=== PATIENT | male | born 1950 | race Caucasian/White ===

== ENCOUNTER → 2017-06-25 09:07 | Outpatient (CLI) | payer OTHER, SELFPAY ==
--- NOTE | 2017-06-25 09:23 | RAD_ITS ---
STUDY: X-RAY CHEST REASON FOR EXAM: Male, 67 years old. Cough TECHNIQUE: Frontal and lateral views of the chest. COMPARISON: 01/10/2010. FINDINGS: The lungs are clear and expanded. There is no demonstrated pleural abnormality. Normal size heart. Normal mediastinum and ketty. Normal visualized pulmonary arteries. Normal visualized aortic arch and descending thoracic aorta. Normal visualized thoracic spine. Normal visualized ribs, clavicles, and shoulders. There is no demonstrated abnormality of the visualized soft tissue structures of the upper abdomen. RAD/Chest PA and Lateral IMPRESSION: No acute cardiopulmonary disease. Electronically Signed: Mark Carty DO at 8:56 EST , Service support ,
[2017-06-25 12:28] LABS: Absolute Lymphocyte Count 1.92 X10^3/ul (0.83-4.51); Absolute Neutrophil Count 5.2 X10^3/uL (2.0-7.7); Basophil# 0.02 X10^3/uL; Basophil% 0.3 % (0-1); Eosinophil# 0.06 X10^3/uL; Eosinophils% 0.8 % (0-5); Hematocrit 43.4 % (40-54); Hemoglobin 14.9 g/dl (13.0-16.5); Lymphocyte # 1.92 X10^3/ul (4.0); Lymphocyte % 24.2 % (19-41); Mean Corp Hgb Conc 34.3 g/gl (32-36); Mean Corpuscular Hgb 32.8 pg (27.0-32.0); Mean Corpuscular Volume 95.6 fL (80-94); Mean Platelet Vol. 10.4 fl (6.2-12.0); Monocyte# 0.63 X10^3/uL; Neutrophil # 5.23 X10^3/uL (2.7-7.7); Neutrophil % 65.9 % (47-70); Platelet Count 300 K/mm3 (150-450); RBC Distribution Width CV 12.6 % (11.6-14.6); RBC Distribution Width SD 43.4 fl (35.1-43.9); Red Blood Count 4.54 M/mm3 (4.6-6.2); White Blood Count 7.9 K/mm3 (4.4-11.0)
[2017-06-25 12:43] LABS: POSITIVE COUNT NO; POSITIVE DIFFERENTIAL NO; POSITIVE MORPHOLOGY NO
[2017-06-25 13:07] LABS: ALB/GLOB Ratio 0.7 RATIO (0.9-2.4); AST(SGOT) 18 U/L (15-37); Alanine Aminotransfer ALT/SGPT 28 U/L (16-61); Albumin, Serum 3.5 g/dL (3.2-5.0); Alkaline Phosphatase 114 U/L (45-117); Anion Gap 14 (5-15); BUN 18 mg/dL (7-18); BUN/Creat Ratio 17.6 RATIO (10-20); Chloride 99 mmol/L (98-107); Cholesterol 129 mg/dL (200); Creatinine, Serum 1.02 mg/dL (0.70-1.30); EST Glomerular Filtration Rate 78 mL/min (>60); Est Glom Filt Rate - Afr Amer 94 mL/min (>60); Globulin 5.1 g/dL (2.2-4.2); Glucose 281 mg/dL (74-106); High Density Lipoprotein 27 mg/dL; PSA,Total- Diagnostic 0.29 ng/mL (0.0-4.0); Potassium 3.9 mmol/L (3.5-5.1); Protein, Total 8.6 g/dL (6.4-8.2); Sodium Level 133 mmol/L (136-145); Thyroid Stim Hormone (TSH) 3.58 uIU/mL (0.358-3.74); Triglycerides 185 mg/dL; Very Low Density Lipoprotein 37 mg/dL (5-40)
== END ==
PROVIDERS: Family Provider Family Medicine; PCP Family Medicine; Visit Provider Family Medicine
DX: E11.9 Type 2 diabetes mellitus without complications (principal); R35.0 Frequency of micturition; R05 Cough
CPT/HCPCS: 36415; 71046; 80053; 80061; 84153; 84443; 85025

== ENCOUNTER → 2018-01-26 08:07 | Outpatient (CLI) | payer MEDICARE, OTHER, SELFPAY ==
[2018-01-26 10:38] LABS: Anion Gap 9 (5-15); BUN 16 mg/dL (7-18); BUN/Creat Ratio 16.1 RATIO (10-20); Calcium,Total 8.8 mg/dL (8.5-10.1); Chloride 102 mmol/L (98-107); Cholesterol 158 mg/dL (200); Creatinine, Serum 0.99 mg/dL (0.70-1.30); EST Glomerular Filtration Rate 80 mL/min (>60); Est Glom Filt Rate - Afr Amer 97 mL/min (>60); Glucose 295 mg/dL (74-106); High Density Lipoprotein 37 mg/dL; Potassium 4.1 mmol/L (3.5-5.1); Sodium Level 135 mmol/L (136-145); Triglycerides 252 mg/dL; Uric Acid 5.1 mg/dL (3.5-7.2); Very Low Density Lipoprotein 50 mg/dL (5-40)
== END ==
PROVIDERS: Family Provider Family Medicine; PCP Family Medicine; Visit Provider Family Medicine
DX: E11.9 Type 2 diabetes mellitus without complications (principal); I10 Essential (primary) hypertension; M10.9 Gout, unspecified
CPT/HCPCS: 36415; 80048; 80061; 84550

== ENCOUNTER → 2018-01-27 09:56 | Outpatient (CLI) | payer MEDICARE, OTHER, SELFPAY ==
[2018-01-27 11:09] LABS: PSA,Total - Annual Screen 0.43 ng/mL (0.00-4.00)
== END ==
PROVIDERS: Family Provider Family Medicine; PCP Family Medicine; Referring Provider Urology; Visit Provider Urology
DX: Z12.5 Encounter for screening for malignant neoplasm of prostate (principal)
CPT/HCPCS: 36415; 84153; G0103

== ENCOUNTER → 2018-03-29 08:10 | Outpatient (CLI) | payer MEDICARE, OTHER, SELFPAY ==
[2018-03-29 11:11] LABS: Anion Gap 8 (5-15); BUN 22 mg/dL (7-18); BUN/Creat Ratio 22.5 RATIO (10-20); Calcium,Total 9.2 mg/dL (8.5-10.1); Chloride 103 mmol/L (98-107); Cholesterol 132 mg/dL (200); Creatinine, Serum 0.98 mg/dL (0.70-1.30); EST Glomerular Filtration Rate 82 mL/min (>60); Est Glom Filt Rate - Afr Amer 99 mL/min (>60); Glucose 175 mg/dL (74-106); High Density Lipoprotein 42 mg/dL; Potassium 4.1 mmol/L (3.5-5.1); Sodium Level 136 mmol/L (136-145); Triglycerides 171 mg/dL; Very Low Density Lipoprotein 34 mg/dL (5-40)
--- OUTSIDE RECORDS SUMMARY | 2018-05-10 20:39 | XMS RPT_ITS ---
:1950 Author Organization OHIP Care Team Providers Name Role Phone Primay Care Physicia, No Primary Care Unavailable Emmanuel Chavis Attending Unavailable Mina Haynes Attending Unavailable Mina Haynes Referring Unavailable Mina Haynes Primary Care Unavailable Mina Haynes Attending Unavailable Mina Haynes Primary Care Unavailable Fitz Marie Attending Unavailable Fitz Marie Referring Unavailable Mina Haynes Primary Care Unavailable Mina Haynes Attending Unavailable Mina Haynes Primary Care Unavailable PROBLEMS PROBLEMS DATE TYPE CONDITION / CODE ATTENDING STATUS SOURCE 01/27/2018 Unknown Z12.5 - Encounter Fitz Marie Active [place] for screening for [facility] malignant neoplasm Hospital of prostate / Repository Z12.5(ICD-10) 04/12/2018 Unknown E11.9 - Type 2 Ivy, Active [place] diabetes mellitus [facility] without Hospital complications / Repository E11.9(ICD-10) 06/28/2017 Unknown R05 - Cough / Shundry, Emmanuel Active [place] R05(ICD-10) [facility] Repository PROCEDURES PROCEDURES No Procedure Records FoundRESULTS RESULTS BASIC METABOLIC Collected: 03/29/2018 Status: F Source: [place] PROFILE (BMP) 8:11 AM [facility] REPOSITORY TYPE CODE TESTS RESULT OUT OF RANGE REFERENCE UNITS LAB L501.0100 74-106 mg/dL High GLU 175 Result Comment: Fasting Glucose result greater than or equal to 126 mg/dL suggests DIABETES MELLITUS per A.D.A. criteria. Please note revised GLUCOSE reference range effective 2017. LAB L501.1000 7-18 mg/dL High BUN 22 LAB L501.1100 0.70-1.30 mg/dL Normal CREAT,SERUM 0.98 Result Comment: The validity of the calculated GFR AND GFRAA in patients over 70 years has not been determined. Clinical correlation is essential. LAB L501.1110 >60 mL/min Normal EST GFR 82 Result Comment: Non- GFR Calc LAB L501.1115 >60 mL/min Normal EST GFR - AA 99 Result Comment: GFR Calc LAB L501.1300 10-20 RATIO High BUN/CRE 22.5 LAB L501.2200 8.5-10.1 mg/dL CA Normal 9.2 LAB L501.5300 136-145 mmol/L NA Normal 136 LAB L501.5600 3.5-5.1 mmol/L K Normal 4.1 LAB L501.5900 98-107 mmol/L CL Normal 103 LAB L501.6100 21.0-32.0 mmol/L Normal CO2 25.0 LAB L501.6200 5-15 Normal GAP 8 Performed By: #### L500.2500, L500.4100 #### [facility] [address] [place], [address] LIPID PROFILE Collected: 03/29/2018 Status: F Source: [place] 8:11 AM [facility] REPOSITORY TYPE CODE TESTS RESULT OUT OF RANGE REFERENCE UNITS LAB L501.4900 200 mg/dL Normal CHOL 132 Result Comment: <200 mg/dL Desirable 200-240 mg/dL Borderline >240 mg/dL High Risk LAB L501.5000 mg/dL Normal TRIG 171 Result Comment: The drugs N-Acetylcysteine and Metamizole may falsely depress this assay. Serum Triglycerides Reference Interval Normal <150 mg/dL Borderline high 150 - 199 mg/dL High 200 - 499 mg/dL Very High > or = 500 mg/dL LAB L501.6400 mg/dL Normal HDL 42 Result Comment: The drugs N-Acetylcysteine and Metamizole may falsely depress this assay. Reference Range HDL <40 mg/dL Low HDL Cholesterol HDL >or= 60 mg/dL High HDL Cholesterol LAB L501.6500 0-130 mg/dL Normal LDL 56 LAB L501.6600 5-40 mg/dL Normal VLDL 34 Performed By: #### L500.2500, L500.4100 #### [facility] [address] [place], [address] PSA,TOTAL - ANNUAL Collected: 01/27/2018 Status: F Source: [place]AM[place] SCREEN 10:02 AM [facility] REPOSITORY TYPE CODE TESTS RESULT OUT OF RANGE REFERENCE UNITS LAB L501.9910 0.00-4.00 ng/mL Normal PSA,TOT 0.43 SCREEN Result Comment: This test was performed using the TPSA assay method for the WiMi5 chemistry system. Values obtained with different assay methods cannot be used interchangably. When changing PSA assays in the course of monitoring a patient, additional sequential testing should be carried out to confirm baseline values. Performed By: #### L501.9910 #### [facility] [address] [place], [address] BASIC METABOLIC Collected: 01/26/2018 Status: F Source: [place]AM[place] PROFILE (BMP) 8:13 AM [facility] REPOSITORY TYPE CODE TESTS RESULT OUT OF RANGE REFERENCE UNITS LAB L501.0100 74-106 mg/dL High GLU 295 Result Comment: Glucose result greater than or equal to 200 mg/dL suggests DIABETES MELLITUS per A.D.A. criteria. Please note revised GLUCOSE reference range effective 2017. LAB L501.1000 7-18 mg/dL Normal BUN 16 LAB L501.1100 0.70-1.30 mg/dL Normal CREAT,SERUM 0.99 Result Comment: The validity of the calculated GFR AND GFRAA in patients over 70 years has not been determined. Clinical correlation is essential. LAB L501.1110 >60 mL/min Normal EST GFR 80 Result Comment: Non- GFR Calc LAB L501.1115 >60 mL/min Normal EST GFR - AA 97 Result Comment: GFR Calc LAB L501.1300 10-20 RATIO Normal BUN/CRE 16.1 LAB L501.2200 8.5-10.1 mg/dL CA Normal 8.8 LAB L501.5300 136-145 mmol/L Low NA 135 LAB L501.5600 3.5-5.1 mmol/L K Normal 4.1 LAB L501.5900 98-107 mmol/L CL Normal 102 LAB L501.6100 21.0-32.0 mmol/L Normal CO2 24.0 LAB L501.6200 5-15 Normal GAP 9 Performed By: #### L500.2500, L500.4100, L501.1400 #### [facility] [address] [place], [place], [address] LIPID PROFILE Collected: 01/26/2018 Status: F Source: [place] 8:13 AM [facility] REPOSITORY TYPE CODE TESTS RESULT OUT OF RANGE REFERENCE UNITS LAB L501.4900 200 mg/dL Normal CHOL 158 Result Comment: <200 mg/dL Desirable 200-240 mg/dL Borderline >240 mg/dL High Risk LAB L501.5000 mg/dL High TRIG 252 Result Comment: The drugs N-Acetylcysteine and Metamizole may falsely depress this assay. Serum Triglycerides Reference Interval Normal <150 mg/dL Borderline high 150 - 199 mg/dL High 200 - 499 mg/dL Very High > or = 500 mg/dL LAB L501.6400 mg/dL Low HDL 37 Result Comment: The drugs N-Acetylcysteine and Metamizole may falsely depress this assay. Reference Range HDL <40 mg/dL Low HDL Cholesterol HDL >or= 60 mg/dL High HDL Cholesterol LAB L501.6500 0-130 mg/dL Normal LDL 71 LAB L501.6600 5-40 mg/dL High VLDL 50 Performed By: #### L500.2500, L500.4100, L501.1400 #### [facility] [address] [place], [address] URIC ACID Collected: 01/26/2018 Status: F Source: [place] 8:13 AM [facility] REPOSITORY TYPE CODE TESTS RESULT OUT OF RANGE REFERENCE UNITS LAB L501.1400 3.5-7.2 mg/dL Normal URIC 5.1 Result Comment: The drugs N-Acetylcysteine and Metamizole may falsely depress this assay. Performed By: #### L500.2500, L500.4100, L501.1400 #### [facility] [address] [place], [address] CHEST PA AND LATERAL Observed: 06/25/2017 Status: F Source: [place] 9:23 AM [facility] REPOSITORY [facility] Imaging Services [address] [place] [address] Chest PA and Lateral MR#: [id number] Acct: [id number] Name: AARON ELKINS Rep #: [id number] : 1950 M 67 From: Mark Carty PCP: Mina Haynes MD Status: REG CLI Study: Chest PA and Lateral Date of Exam: 06/25/17 Exam# [id number] Ordering Dr: Jose Haynes MD STUDY: X-RAY CHEST REASON FOR EXAM: Male, 67 years old. Cough TECHNIQUE: Frontal and lateral views of the chest. COMPARISON: 01/10/2010. FINDINGS: The lungs are clear and expanded. There is no demonstrated pleural abnormality. Normal size heart. Normal mediastinum and ketty. Normal visualized pulmonary arteries. Normal visualized aortic arch and descending thoracic aorta. Normal visualized thoracic spine. Normal visualized ribs, clavicles, and shoulders. There is no demonstrated abnormality of the visualized soft tissue structures of the upper abdomen. RAD/Chest PA and Lateral IMPRESSION: No acute cardiopulmonary disease. Electronically Signed: Mark Carty at 8:56 EST , Service support , CC: Mina Haynes MD Acute Care Occupational Therapist: Signed CBC W/DIFF, AUTOMATED Collected: 06/25/2017 Status: F Source: [place] 9:21 AM [facility] REPOSITORY Order Comment: Order Date: 06/25/17 Order Info: 0184-1 - CBCD TYPE CODE TESTS RESULT OUT OF RANGE REFERENCE UNITS LAB L100.1000 4.4-11.0 K/mm3 Normal WBC 7.9 LAB L100.1200 4.6-6.2 M/mm3 Low RBC 4.54 LAB L100.1300 13.0-16.5 g/dl Normal HGB 14.9 LAB L100.1400 40-54 % Normal HCT 43.4 LAB L100.1500 80-94 fL High MCV 95.6 LAB L100.1600 27.0-32.0 pg High MCH 32.8 LAB L100.1700 32-36 g/gl Normal MCHC 34.3 LAB L100.1810 11.6-14.6 % Normal RDW CV 12.6 LAB L100.1820 35.1-43.9 fl Normal RDW SD 43.4 LAB L100.1900 150-450 K/mm3 Normal PLT 300 LAB L100.2000 6.2-12.0 fl Normal MPV 10.4 LAB L100.2100 47-70 % Normal NEUT% 65.9 LAB L100.2200 19-41 % Normal LY% 24.2 LAB L100.2300 0-10 % Normal MONO% 8.0 LAB L100.2400 0-5 % Normal EO% 0.8 LAB L100.2500 0-1 % Normal BASO% 0.3 LAB L100.2550 0.0-0.9 % Normal IM GRAN % 0.800 Result Comment: IG% - Immature Granulocytes (promyelocytes, myelocytes and metamyelocytes) > 1% indicates that a LEFT SHIFT is Present. LAB L100.2620 2.0-7.7 X10 3/uL Normal Absolute Neut 5.2 LAB L100.2720 0.83-4.51 X10 3/ul Normal Absolute Lymph 1.92 Performed By: #### L100.0100, L500.4050, L500.4100, L501.9520 #### [facility] [address] [place], [address] COMPREHENSIVE METABOLIC Collected: 06/25/2017 Status: F Source: [place]AM[place]A [place] 9:21 AM [facility] REPOSITORY Order Comment: Order Date: 06/25/17 Order Info: [id number] - CMP Order Info: [id number] - LIPID Order Info: 3016-3 - TSH TYPE CODE TESTS RESULT OUT OF RANGE REFERENCE UNITS LAB L501.0100 74-106 mg/dL High GLU 281 Result Comment: Glucose result greater than or equal to 200 mg/dL suggests DIABETES MELLITUS per A.D.A. criteria. Please note revised GLUCOSE reference range effective 2017. LAB L501.1000 7-18 mg/dL Normal BUN 18 LAB L501.1100 0.70-1.30 mg/dL Normal CREAT,SERUM 1.02 Result Comment: The validity of the calculated GFR AND GFRAA in patients over 70 years has not been determined. Clinical correlation is essential. LAB L501.1110 >60 mL/min Normal EST GFR 78 Result Comment: Non- GFR Calc LAB L501.1115 >60 mL/min Normal EST GFR - AA 94 Result Comment: GFR Calc LAB L501.1300 10-20 RATIO Normal BUN/CRE 17.6 LAB L501.1500 6.4-8.2 g/dL High T PROT 8.6 LAB L501.1800 3.2-5.0 g/dL Normal ALB 3.5 LAB L501.1950 2.2-4.2 g/dL High GLOB 5.1 LAB L501.2000 0.9-2.4 RATIO Low A/G 0.7 LAB L501.2200 8.5-10.1 mg/dL CA Normal 9.0 LAB L501.4100 15-37 U/L Normal AST 18 LAB L501.4305 45-117 U/L Normal ALK P 114 LAB L501.4405 16-61 U/L Normal ALT 28 Result Comment: Please note revised ALT reference range effective 2017. LAB L501.4600 0.20-1.00 mg/dL Normal T BILI 0.50 LAB L501.5300 136-145 mmol/L Low NA 133 LAB L501.5600 3.5-5.1 mmol/L Normal K 3.9 LAB L501.5900 98-107 mmol/L Normal CL 99 LAB L501.6100 21.0-32.0 mmol/L Low CO2 20.0 LAB L501.6200 5-15 Normal GAP 14 Performed By: #### L100.0100, L500.4050, L500.4100, L501.9520 #### [facility] [address] [place], [place], [address] LIPID PROFILE Collected: 06/25/2017 Status: F Source: [place] 9:21 AM [facility] REPOSITORY Order Comment: Order Date: 06/25/17 Order Info: [id number] - CMP Order Info: [id number] - LIPID Order Info: 3016-3 - TSH TYPE CODE TESTS RESULT OUT OF RANGE REFERENCE UNITS LAB L501.4900 200 mg/dL Normal CHOL 129 Result Comment: <200 mg/dL Desirable 200-240 mg/dL Borderline >240 mg/dL High Risk LAB L501.5000 mg/dL Normal TRIG 185 Result Comment: The drugs N-Acetylcysteine and Metamizole may falsely depress this assay. Serum Triglycerides Reference Interval Normal <150 mg/dL Borderline high 150 - 199 mg/dL High 200 - 499 mg/dL Very High > or = 500 mg/dL LAB L501.6400 mg/dL Low HDL 27 Result Comment: The drugs N-Acetylcysteine and Metamizole may falsely depress this assay. Reference Range HDL <40 mg/dL Low HDL Cholesterol HDL >or= 60 mg/dL High HDL Cholesterol LAB L501.6500 0-130 mg/dL Normal LDL 65 LAB L501.6600 5-40 mg/dL Normal VLDL 37 Performed By: #### L100.0100, L500.4050, L500.4100, L501.9520 #### [facility] [address] [place], [place], [address] THYROID STIM HORMONE Collected: 06/25/2017 Status: F Source: SHAMIKA (TSH) 9:21 AM [facility] REPOSITORY Order Comment: Order Date: 06/25/17 Order Info: [id number] - CMP Order Info: [id number] - LIPID Order Info: [id number] - TSH TYPE CODE TESTS RESULT OUT OF RANGE REFERENCE UNITS LAB L501.9520 0.358-3.74 uIU/mL Normal TSH 3.58 Performed By: #### L100.0100, L500.4050, L500.4100, L501.9520 #### [facility] [address] [place], [address] PSA,TOTAL- DIAGNOSTIC Collected: 06/25/2017 Status: F Source: [place] 9:21 AM [facility] REPOSITORY Order Comment: Order Date: 06/25/17 Order Info: [id number] - CMP Order Info: [id number] - LIPID Order Info: [id number] - TSH TYPE CODE TESTS RESULT OUT OF RANGE REFERENCE UNITS LAB L501.9940 0.0-4.0 ng/mL PSA, Normal DIAGNOSTIC 0.29 Result Comment: This test was performed using the TPSA assay method for the WiMi5 chemistry system. Values obtained with different assay methods cannot be used interchangably. When changing PSA assays in the course of monitoring a patient, additional sequential testing should be carried out to confirm baseline values. Performed By: #### L501.9940 #### [facility] [address] [place], [address] EMERGENCY DEPARTMENT Observed: 05/12/2017 Status: F Source: [place] SUMMARY 6:50 AM [facility] REPOSITORY [facility] Medical Records Department [address] [facility] [place] [address] Emergency Department Summary 05/12/17 0257 MR#: [id number] Acct: [id number] Name: SEVEROAARON Adam Rep #: [id number] : 1950 67 From: Emmanuel Chavis MD PCP: Care Physician, No Primary Status: DEP ER - ER Visit Summary Date of Service: 05/12/17 Chief Complaint: [] Presents with a nonproductive cough for last 10 days. He got better and then recently it got worse. He stopped Mucinex 2 days ago. Went to urgent care diagnosed with sinusitis 2 days ago. Started Augmentin and fluticasone nasal spray. He is Advil tonight. Comes in for symptomatic control and evaluation. History of Present Illness: The patient is a 67 M [] see above Physical Examination: [] Vital signs reviewed General: Well-nourished well-developed Head: Normocephalic atraumatic Eyes: Pupils equal round and reactive to light extraocular movements intact ENT: TMs clear no hemotympanum no trauma. Positive maxillary sinus tenderness bilateral. Nares appear normal as well as nasal vinnie. Neck: Nontender full range of motion Cardiovascular: Regular rate rhythm no murmurs normal S1-S2 Respiratory: No distress clear to auscultation bilaterally chest nontender Abdomen: Soft nontender nondistended normal bowel sounds no masses Back: Nontender no CVA tenderness Extremities: Nontender active range of motion 4 extremities no trauma Skin: Normal color no trauma Neuro alert oriented cranial nerves II through XII intact normal strength sensation reflexes Test Results: [] Emergency Department Course and Treatment: [] This time I feel the patient has sinusitis with upper respiratory symptoms. He will use Mucinex, Sudafed and was given Afrin nasal spray here. Understands Flonase is a delayed effect. He will continue his antibiotics however this is likely viral. Follow-up as an outpatient. Treatment Plan: [] Disposition: [] Impression: [] Acute sinusitis Upper respiratory infection This note was generated with [employer] dictation software. It may contain incorrect words, spelling, and punctuation that were not noted in review of the chart prior to signing ED Disposition - Plan for ED Patient: Chief Complaint: Cough Referrals: Care Physician,No Primary [Primary Care Provider] - What to do if you have Problems For any increased pain, shortness of breath, bleeding, nausea or vomiting, chest pain, or any unexpected problems, contact your Primary Care Provider. Call [facility] ([phone]) or report to the closest Emergency Room. Call 911 if necessary. 05/12/17 0650 <Electronically signed by Emmanuel Chavis MD> Date Emmanuel Chavis MD Cosigner Signature (If Indicated): Date CC: No Primary Care Physician DISCHARGE INSTRUCTION Observed: 05/12/2017 Status: F Source: [place] 6:50 AM [facility] REPOSITORY [facility] Medical Records Department [address] [place] [address] Discharge Instruction 05/12/17 0258 MR#: [id number] Acct: [id number] Name: AARON ELKINS Rep #: [id number] : 1950 67 From: Emmanuel Chavis MD PCP: Care Physician, No Primary Status: DEP ER ED Disposition - Plan for ED Patient: Disposition: Home or Assisted Living Chief Complaint: Cough Instructions: ED Upper Resp Infec Abx Tx Referrals: Care Physician,No Primary [Primary Care Provider] - Earnest Rebolledo, [NON-STAFF] - What to do if you have Problems For any increased pain, shortness of breath, bleeding, nausea or vomiting, chest pain, or any unexpected problems, contact your Primary Care Provider. Call [facility] ([phone]) or report to the closest Emergency Room. Call 911 if necessary. 05/12/17 0650 <Electronically signed by Emmanuel Chavis MD> Date Emmanuel Chavis MD Cosigner Signature (If Indicated): Date CC: No Primary Care Physician ALLERGIES ALLERGIES DATE TYPE / CODE NAME / CODE REACTION SEVERITY SOURCE 05/12/2017 Drug No Known Unknown [facility] Allergy/4160 Allergies/F00 Hospital 51152(SNOMED 2974333(RXNOR Repository CT) M) ENCOUNTERS ENCOUNTERS ADMIT/DISCHARGE ACCOUNT ADMITTING ENCOUNTER LOCATION SOURCE NUMBER CLASS 03/29/2018 [id number] Ambulatory [place] 6 [facility] ing:MFPLAB Repository 01/27/2018 [id number] Ambulatory [place] 7 [facility] ing:LAB Repository 01/26/2018 [id number] Ambulatory [place] 8 [facility] ing:MFPLAB Repository 06/25/2017 [id number] Ambulatory [place] 4 [facility] ing:MTLAB Repository 05/12/2017/ [id number] Emergency [place] 8 8 [facility] ing:ED Repository PAYERS PAYERS ENCOUNTER GUARANTOR PAYER SUBSCRIBER SOURCE 03/29/2018 AARON O Primary AARON O [place] [id number] Insurance:MEDICARE MCKENZIEDOB: [facility] [id number], Number: Repository [place] [id number]: [phone] [id number] [phone] (HP) Date:2018-03-29 03/29/2018 Secondary AARON O [place] Insurance:HEALTH SYSTEMEDOB: [facility] [id number] [id number] Hospital Number: Repository [id number] Date:[id number] [address]HI: 03/29/2018 Tertiary NOT GIVENUNK [place] Insurance:SELF PAY [facility] Number: Effective Repository Date:2018-03-29 01/27/2018 AARON O Primary AARON O [place] [id number] Insurance:MEDICARE MCKENZIEDOB: [facility] [id number] [facility] Number: Repository [place] [address]Sdc: [phone] [id number] [phone] (HP) Date:2018-01-27 01/27/2018 Secondary AARON O [place] Insurance:HEALTH SYSTEMEDOB: [facility] [address]Xqptnr [id number] Hospital Number: Repository [id number] Date:2931-92-90LY [facility] [id number], [place] [address]ZO: 01/27/2018 Tertiary NOT GIVENUNK [place] Insurance:SELF PAY [facility] Number: Effective Repository Date:2018-01-27 01/26/2018 AARON O Primary AARON O [place] [id number] Insurance:MEDICARE MCKENZIEDOB: [facility] PART A [facility] [address] [id number], Number: Repository [place] [id number]: [phone] [id number] [phone] (HP) Date:2018-01-26 01/26/2018 Secondary AARON O [place] Insurance:[facility] HOSPITAL[facility]: [facility] CARE [address] [place] [address] [id number] Hospital Number: Repository [id number] Date:[id number] [address], [place] [address]DE: 01/26/2018 Tertiary NOT GIVENUNK [place] Insurance:SELF PAY [facility] Number: Effective Repository Date:2018-01-26 06/25/2017 AARON O Primary AARON O [place] [id number] Insurance:[facility] CENTERKENZIEDOB: [facility] CARE [address]Hahjfh [id number], Number: Repository [place] [address]Hjh: [phone] [id number] [phone] (HP) Date:[id number] [address]UO: 06/25/2017 Secondary NOT GIVENUNK [place] Insurance:SELF PAY [facility] Number: Effective Repository Date:2017-06-25 05/12/2017 AARON O Primary AARON O [place] [id number] Insurance:CITY HOSPITALKENZIEDOB: [address] [place] [address], Number: Repository [place] [id number]: [phone] [id number] [phone] (HP) Date:[id number], [place] [address]TU: 05/12/2017 Secondary NOT GIVENUNK [place] Insurance:SELF PAY [facility]: Effective Repository Date:2017-05-12
== END ==
PROVIDERS: Family Provider Family Medicine; PCP Family Medicine; Visit Provider Family Medicine
DX: E11.9 Type 2 diabetes mellitus without complications (principal)
CPT/HCPCS: 36415; 80048; 80061

== ENCOUNTER → 2018-12-16 12:11 | Outpatient (CLI) | payer MEDICARE, BC, SELFPAY ==
--- NOTE | 2018-12-16 12:15 | ECHOD_ITS ---
Reason For Study: MURMUR Procedure This was a 2D Doppler, Color Flow transthoracic echocardiogram. Exam performed in department. Left Ventricle Normal LV size. The estimated ejection fraction is 60 %. No evidence for diastolic dysfunction. No regional wall motion abnormalities noted. Right Ventricle Normal RV size. Normal systolic function. Atria Normal left atrium. Normal right atrium. No doppler evidence for ASD. Mitral Valve There is mild mitral annular calcification. There is no mitral valve stenosis. Trivial mitral valve insufficiency. Tricuspid Valve There is no tricuspid stenosis. Unable to estimate RV systolic pressure due to insufficient tricuspid regurgitant envelope. No tricuspid valve insufficiency. Aortic Valve Aortic sclerosis, no stenosis. There is no aortic stenosis. No aortic valve insufficiency. Pulmonic Valve There is no pulmonic valvular stenosis. No pulmonic valve insufficiency. Great Vessels Normal aortic root. Pericardium/Pleural No pericardial effusion. MMode/2D Measurements & Calculations LVIDd: 4.2 cm IVSd: 1.4 cm Ao root diam: 2.9 cm LVIDs: 2.7 cm LVPWd: 1.1 cm RVDd: 3.3 cm FS: 34.8 % LAV(MOD-bp): 30.7 ml LA A4 area: 12.2 cm2 LA dimension(2D): 3.0 cm LAV(MOD-bp) Indexed: 16.2 ml/m2 LAV(MOD-sp2): 32.3 ml LAV(MOD-sp4): 28.3 ml RA A4 area: 11.9 cm2 Time Measurements MV dec time: 0.30 sec Doppler Measurements & Calculations MV E max isaiah: 59.8 cm/sec Lat Peak E' Isaiah: 5.7 cm/sec Med Peak E' Isaiah: 5.9 cm/sec MV A max isaiah: 90.0 cm/sec E/E' lat: 10.5 E/E' med: 10.1 MV E/A: 0.66 Ao V2 max: 143.8 cm/sec LV V1 max: 72.3 cm/sec PA V2 max: 151.0 cm/sec Ao max P.3 mmHg LV V1 max P.1 mmHg TR max isaiah: 191.5 cm/sec TR max P.7 mmHg Interpretation Summary The estimated ejection fraction is 60 %. No evidence for diastolic dysfunction. Aortic sclerosis, no stenosis. Ordering Physician: Jose Haynes Referring Physician: Jose Hanyes Performed By: Bushra Rodriguez RDCS, RVT
== END ==
PROVIDERS: Family Provider Family Medicine; PCP Family Medicine; Referring Provider Family Medicine; Visit Provider Family Medicine
DX: R01.1 Cardiac murmur, unspecified (principal)
CPT/HCPCS: 93306

== ENCOUNTER → 2019-01-17 08:50 | Outpatient (CLI) | payer MEDICARE, BC, SELFPAY ==
[2019-01-17 09:54] LABS: PSA,Total- Diagnostic 0.29 ng/mL (0.0-4.0)
== END ==
PROVIDERS: Family Provider Family Medicine; PCP Family Medicine; Referring Provider Urology; Visit Provider Urology
DX: N40.0 Benign prostatic hyperplasia without lower urinary tract symptoms (principal)
CPT/HCPCS: 36415; 84153

== ENCOUNTER → 2019-01-23 15:17 | Outpatient (CLI) | payer MEDICARE, BC, SELFPAY ==
--- NOTE | 2019-01-23 11:23 | COLBX_PTH ---
PATIENT: AARON ELKINS LOC: [facility] U#:[id number] AGE/SX: 75/M ROOM: RE01/23/[address]: Dr. Javan Bryan MD : 1950 BED: DIS: SPEC #: [id number] RECD: 01/23/19 15:10 STATUS: LEATHA ANA #: [id number] MICHAEL: 01/23/19 11:[address]: Javan Bryan DEPT: SURGICAL PATHOLOGY RECD BY: Dean Perez ENTERED: 01/24/19 13:32 SP TYPE: COLON BX LAMIN DR: Dr. Mina Haynes MD [facility] Tissues: Right colon Procedures: Surgery Specimen Level IV HEADER OPERATION: Colonoscopy with biopsies PRE-OP DIAGNOSIS: Polyps TISSUE SUBMITTED: Right colon polyps biopsies, rule out adenoma MICROSCOPIC DIAGNOSIS Right colon polyp, biopsy: Tubular adenoma. VALERIE:tamir 01/25/19 MICROSCOPIC DESCRIPTION Slides are reviewed. GROSS DESCRIPTION Received in fixative is one container labeled with the patient's name and designated right colon polyp biopsy. The specimen consists of one irregular fragment of light quispe soft tissue that measures 0.3 x 0.3 x 0.1 cm. The specimen is totally submitted in one cassette. / SJ:tamir 01/24/19 TC:1 CPT: 69882
== END ==
PROVIDERS: Family Provider Family Medicine; PCP Family Medicine; Referring Provider Internal Medicine Gastroenterology; Visit Provider Internal Medicine Gastroenterology
DX: D12.6 Benign neoplasm of colon, unspecified (principal)
CPT/HCPCS: 88305

== ENCOUNTER → 2019-03-17 08:22 | Outpatient (CLI) | payer MEDICARE, BC, SELFPAY ==
[2019-03-17 10:52] LABS: ALB/GLOB Ratio 0.9 RATIO (0.9-2.4); AST(SGOT) 18 U/L (15-37); Alanine Aminotransfer ALT/SGPT 36 U/L (16-61); Albumin, Serum 3.9 g/dL (3.2-5.0); Alkaline Phosphatase 59 U/L (45-117); Anion Gap 10 (5-15); BUN 16 mg/dL (7-18); BUN/Creat Ratio 13.9 RATIO (10-20); Calcium,Total 9.4 mg/dL (8.5-10.1); Chloride 103 mmol/L (98-107); Cholesterol 202 mg/dL (200); Creatinine, Serum 1.15 mg/dL (0.70-1.30); EST Glomerular Filtration Rate 67 mL/min (>60); Est Glom Filt Rate - Afr Amer 82 mL/min (>60); Globulin 4.3 g/dL (2.2-4.2); Glucose 126 mg/dL (74-106); High Density Lipoprotein 42 mg/dL; Protein, Total 8.2 g/dL (6.4-8.2); Sodium Level 136 mmol/L (136-145); Thyroid Stim Hormone (TSH) 3.66 uIU/mL (0.358-3.74); Triglycerides 205 mg/dL; Uric Acid 6.9 mg/dL (3.5-7.2); Very Low Density Lipoprotein 41 mg/dL (5-40)
== END ==
PROVIDERS: Family Provider Family Medicine; PCP Family Medicine; Referring Provider Family Medicine; Visit Provider Family Medicine
DX: E11.9 Type 2 diabetes mellitus without complications (principal); M10.9 Gout, unspecified
CPT/HCPCS: 36415; 80053; 80061; 84443; 84550

== ENCOUNTER → 2019-10-24 09:19 | Outpatient (CLI) | payer MEDICARE, BC, SELFPAY ==
[2019-10-24 10:34] LABS: AST(SGOT) 20 U/L (15-37); Alanine Aminotransfer ALT/SGPT 33 U/L (16-61); Albumin, Serum 4.2 g/dL (3.2-5.0); Alkaline Phosphatase 59 U/L (45-117); Anion Gap 7 (5-15); BUN 18 mg/dL (7-18); BUN/Creat Ratio 16.2 RATIO (10-20); Calcium,Total 9.6 mg/dL (8.5-10.1); Chloride 104 mmol/L (98-107); Cholesterol 202 mg/dL (200); Creatinine, Serum 1.11 mg/dL (0.70-1.30); EST Glomerular Filtration Rate 70 mL/min (>60); Est Glom Filt Rate - Afr Amer 85 mL/min (>60); Globulin 4.2 g/dL (2.2-4.2); Glucose 145 mg/dL (74-106); High Density Lipoprotein 43 mg/dL; Potassium 4.5 mmol/L (3.5-5.1); Protein, Total 8.4 g/dL (6.4-8.2); Sodium Level 137 mmol/L (136-145); Triglycerides 258 mg/dL; Very Low Density Lipoprotein 52 mg/dL (5-40)
== END ==
PROVIDERS: PCP Family Medicine; Referring Provider Family Medicine; Visit Provider Family Medicine
DX: E11.9 Type 2 diabetes mellitus without complications (principal)
CPT/HCPCS: 36415; 80053; 80061

== ENCOUNTER → 2019-11-27 11:15 | Outpatient (CLI) | payer MEDICARE, BC, SELFPAY ==
[2019-11-27 12:38] LABS: Absolute Lymphocyte Count 2.05 X10^3/uL (0.83-4.51); Absolute Neutrophil Count 4.3 X10^3/uL (2.0-7.7); Basophil# 0.03 X10^3/uL; Basophil% 0.4 % (0-1); Eosinophil# 0.04 X10^3/uL; Eosinophils% 0.5 % (0-5); Hematocrit 43.7 % (40-54); Hemoglobin 14.9 g/dL (13.0-16.5); Lymphocyte # 2.05 X10^3/ul (4.0); Mean Corp Hgb Conc 34.1 g/dL (32-36); Mean Corpuscular Hgb 33.6 pg (27.0-32.0); Mean Corpuscular Volume 98.4 fL (80-94); Mean Platelet Vol. 10.8 fl (6.2-12.0); Monocyte# 0.88 X10^3/uL; NRBC Flagged by Analyzer 0 % (0-5); Neutrophil # 4.28 X10^3/uL (2.7-7.7); Neutrophil % 58.7 % (47-70); Platelet Count 190 K/mm3 (150-450); RBC Distribution Width CV 13.1 % (11.6-14.6); RBC Distribution Width SD 46.5 fl (35.1-43.9); Red Blood Count 4.44 M/mm3 (4.6-6.2); White Blood Count 7.3 K/mm3 (4.4-11.0)
[2019-11-27 12:42] LABS: Anion Gap 9 (5-15); BUN 17 mg/dL (7-18); BUN/Creat Ratio 15.3 RATIO (10-20); Calcium,Total 9.4 mg/dL (8.5-10.1); Chloride 104 mmol/L (98-107); Creatinine, Serum 1.11 mg/dL (0.70-1.30); EST Glomerular Filtration Rate 70 mL/min (>60); Est Glom Filt Rate - Afr Amer 85 mL/min (>60); Glucose 128 mg/dL (74-106); Potassium 4.1 mmol/L (3.5-5.1); Sodium Level 138 mmol/L (136-145)
[2019-11-27 12:45] LABS: Prothrombin Time (Protime)PT. 12.6 SECONDS (11.7-14.9)
[2019-11-27 12:46] LABS: Partial Thromboplast Time 33.3 Seconds (24.1-36.2)
[2019-11-27 12:53] LABS: Hemoglobin A1c 6.1 % (3.8-5.6)
== END ==
PROVIDERS: PCP Family Medicine; Referring Provider Family Medicine; Visit Provider Family Medicine
DX: Z01.818 Encounter for other preprocedural examination (principal); E11.9 Type 2 diabetes mellitus without complications
CPT/HCPCS: 36415; 80048; 83036; 85025; 85610; 85730

== ENCOUNTER → 2019-11-28 12:51 | Outpatient (CLI) | payer MEDICARE, BC, SELFPAY ==
--- NOTE | 2019-11-28 12:57 | CT_ITS ---
STUDY: CT SCAN LOWER EXTREMITY RIGHT REASON FOR EXAM: Male, 69 years old. VALGUS DEFORMITY, PREV RT KNEE SURG X 6, ARTHRITIS, DB RADIATION DOSAGE (If Supplied By Facility): CTDIvol = ( 18.22 ) mGy, DLP = ( 1110.64 ) mGycm. Individualized dose optimization techniques were used for this CT.? TECHNIQUE: Multiple axial tomographic images of the right knee, right hip and right ankle were obtained. Coronal and sagittal reconstruction was obtained as well. COMPARISON: None. FINDINGS: Moderate degree of joint space narrowing involving the superior lateral compartment of the right hip joint with the degenerative spur along the superior acetabulum. There is prominence of the greater tuberosity suggestive of possible calcific tendinitis. There is a moderate degree of joint space narrowing of the medial and lateral compartments of the knee joint with evidence of degenerative spur formation more prominent along the femoral condyles. There is also evidence of the periarticular ossifications of the knee joint suggestive of synovial osteochondromatosis. Mild degree of joint space narrowing involving the femoral patellar joint. Imaging of the ankle joint shows a normal ankle mortise. CT/Extremity Lower without Contra IMPRESSION: Degenerative changes of the knee joint as described with the findings suggestive of osteochondromatosis. Electronically Signed: Virgil Orourke, at 15:44 EDT , Service support ,
== END ==
PROVIDERS: PCP Family Medicine; Referring Provider Specialist; Visit Provider Specialist
DX: M21.061 Valgus deformity, not elsewhere classified, right knee (principal)
CPT/HCPCS: 73700

== ENCOUNTER 2019-12-13 05:23 | Day surgery (SDC) | payer MEDICARE, BC, SELFPAY ==
--- NOTE | 2019-11-28 14:04 | HP.PCM_ITS ---
History and Physical History and Physical Patient Name: Luis Daniel Bear : 1950 From: ZANE LANGFORD NP DATE OF SURGERY: 12/13/2019 SCHEDULED PROCEDURE: Minimally invasive robotic-assisted right total knee arthroplasty HISTORY OF PRESENT ILLNESS: Preoperative history and physical exam was performed on November 28, 2019. This is a 69-year-old male was been having ongoing left knee pain for several years. The patient has a history of multiple right knee surgeries due to an ACL angled meniscus tears while in high school. The patient rates his pain is 5 on a scale of 10. He describes the pain as intermittent. The pain is made worse with stairs. The patient notes swelling in the posterior knee. He does sleep with a pillow between or under his knees. Previous treatments include surgery on the right knee, corticosteroid and viscosupplementation injections and nonsteroidal antiinflammatories. The patient also reports pain in his left low back SI joint. He has been wearing a heel cup on the right has improved his back pain. The patient has a medical history pertinent for type 2 diabetes mellitus and history of gout. Surgical clearance will be obtained from his primary care provider Dr. Haynes. He denies fevers, chills, shortness of breath, difficulty breathing or recent infections. After failing conservative measures and discussing treatment options with Dr. Mj Eastman the patient does wish to proceed with a right total knee arthroplasty. REVIEW OF SYSTEMS: ROS: Const: Denies anorexia, change in appetite, fever, difficulty sleeping, weight change. CV: Denies chest pain, heart murmur, irregular heartbeat and peripheral vascular disease. Resp: Denies asthma, cough, pneumonia, sleep apnea, shortness of breath, tuberculosis and wheezing. GI: Denies constipation, diarrhea, heartburn, nausea, rectal itching, bloody stools and vomiting. : Denies incontinence. Musculo: Denies leg swelling, pain, trouble walking and weakness. Skin: Denies Raynaud's, history of shingles and tattoo. Neuro: Denies ambulatory dysfunction, dizziness, numbness/tingling and tremor. Psych: Denies anxiety, depression, insomnia, mental illness and stress. Kedar/Lymph: Denies anemia, bleeding/bruising tendency and past transfusion. Reviewed, no changes. PAST MEDICAL HISTORY: Advance Care Plan: No Advance Directives Effective Date: 10/02/2019 PMH: Medical Problems: Gout Diabetes - TYPE 2 Accidents: None Surgical Hx: Knee Arthroscopy Rt - 1969, 70, AND 85 3 MAJOR SX'S DONE @[facility] 2 SCOPES DONE @[facility] 1 SC[facility] D[facility] Anesthesia Complications: None Assistive Devices: Glasses Reviewed, no changes. 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 Personal Habits: Cigarette Use: Never.Smokeless Tobacco: Never Used Smokeless Tobacco.E-Cigarette Use: Never used.Alcohol: Denies use.Drug Use: Denies Use.Enjoy Exercising: Exercises 1-3 X/Week. Reviewed, no changes. VITALS: Ht: 69.5 Wt: 168lb 4oz Wt k.318 BMI: 24.5 BP: 135/73 Pulse: 86 Resp: 20 T: 97.8 T: 36.6C ALLERGIES: No Known Drug Allergy MEDICATIONS: Oxycodone HCL 5 mg 1-2 tab by mouth every 4 hours, Promethazine HCL 12.5 mg 1-2 tablets by mouth every 6 hours, Famotidine 20 mg 1 by mouth every day, Transderm Scop (1.5 MG) 1 MG/3Days 1 patch behind ear every 3 days, to begin the night before surgery, Meloxicam 7.5 mg 1 by mouth twice a day, Allopurinol 100 mg 1 po qd, Aspirin 81 mg 1 po qd, Losartan Potassium 50 mg 1 by mouth every day, Glimepiride 1 mg 1 by mouth every day, Metformin HCL 1000 mg 1 by mouth twice a day PRE-OP EXAM: General appearance:NORMAL Other: Eyes: Conjunctivae and lids: NORMAL Pupils: ERR Ears, Nose, Mouth, and Throat: NORMAL Other: Inspection of lips, teeth and gums: NORMAL Other: Respiratory: Assessment of respiratory effort: NORMAL Other: Auscultation of lungs: clear to auscultation no wheezes, rhonchi or rales. Cardiovascular: Auscultation of heart: regular rate and rhythm, no murmurs, gallops or rubs. Gastrointestinal: Exam of abdomen: soft, nontender, nondistended bowel sounds present. Neurological: see below Psychiatric: Orientation to time, place and person: NORMAL Other: Mood and affect: NORMAL Other: PHYSICAL EXAMINATION: The patient ambulates with a limping gait. The right knee was cool to touch without erythema or signs of infection. Elliptical scar of the anterior knee that is well-healed. Range of motion: Lacks 20 of full extension to 85 flexion. Valgus alignment. Sensation intact to saphenous, sural, deep and to push peroneal and tibial nerve distributions. IMAGING STUDIES: 4 views of right knee including sunrise and lateral and bilateral weight-bearing AP and tunnel views obtained on October 02, 2019 reviewed reveals varus alignment and lateral joint space narrowing, subchondral sclerosis and osteophyte formation consistent with severe tricompartmental osteoarthritis. IMPRESSION: 1. Osteoarthritis, right knee 2. Type 2 diabetes mellitus 3. History of gout PLAN: Dr. Mj Eastman did discuss and review with the patient all treatment options including surgical versus nonsurgical. The patient does wish to proceed with the above-stated procedure. Potential risk, benefits and complications of the procedure were discussed in detail including but not limited to , infection, nerve and blood vessel damage, persistent pain, numbness, tingling, paresthesia, blood clot, pulmonary embolism and requirement for possible further surgery. The patient expressed full understanding and has no further questions for the doctor. The patient does agree to proceed with the above-stated procedure and has signed the surgery consent form. The patient was given prescriptions for the following medications at his preoperative visit: Famotidine, meloxicam, oxycodone, promethazine and scopolamine patch. 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 He will bring a walker with him to the hospital the day of surgery. Discussed with the patient the risks associated with the COVID-19 virus including the risk of exposure while at the hospital. The patient was reassured local hospitals have low infection rates and taken all necessary precautions to limit patient exposure to COVID-19. Limiting the patient's time in the hospital may decrease their exposure to COVID-19. The patient was notified that we will need to comply with any screening or testing the hospital wishes to perform and that surgery may be delayed for any positive test results. This dictation was created using voice recognition software. Phonetic and/or grammatical errors may exist. ___ I have re-examined the patient. There are no clinical changes since date of exam. ___ See progress notes for changes. ___ Dictated on admission Date: Time: Signature:
[2019-11-29 16:00] LABS: Magnesium 2.2 mg/dL (1.6-2.6)
[2019-12-13] VITALS (9 sets, daily range): BP systolic 119–133; BP diastolic 64–82; PULSE 77–88; RESP 16–18; TEMP 36.4–36.9; O2SAT 94–100; BMI 24.0
[2019-12-13 05:51] LABS: Bedside Glucose 226 mg/dL (70-110)
[2019-12-13] MEDS: Lactated Ringers 1,000 ML 999 ML IV ×3 (05:54→10:00)
[2019-12-13] MEDS: Lactated Ringers 1,000 ML 125 ML IV (05:54)
[2019-12-13] MEDS: Acetaminophen 500 MG Tablet 1000 MG PO ×2 (05:54→13:49)
[2019-12-13] MEDS: Gabapentin 600 MG Tablet PO (05:55)
[2019-12-13] MEDS: Celecoxib 200 MG Capsule 400 MG PO (05:55)
[2019-12-13] MEDS: Scopolamine 1mg/72hr Patch 1 PATCH TD (06:00)
[2019-12-13] MEDS: Insulin Lispro 100 UNIT/ML INSULN.PEN SC ×2 (06:36→10:15)
[2019-12-13] MEDS: Cefazolin 2 GM in 0.9% Normal Saline 100 ML IV (07:25)
[2019-12-13] MEDS: dexAMETHasone 10 MG/ML Vial IV (07:40)
--- NOTE | 2019-12-13 08:58 | OP.PCM_ITS ---
Report of Operation Date of Procedure: 12/13/19 Pre-Operative Diagnosis: Right knee posttraumatic osteoarthritis Post-Operative Diagnosis: Right knee posttraumatic osteoarthritis Surgery/Procedure Performed:: Right minimally invasive robotic assisted total knee replacement Description of Surgical Findings:: Stable knee with good patella tracking. PCL was minimally functional due to previous injuries. We did a posterior stabilized for this reason. clinical implementation specialist: Syl Ramirze Type of Anesthesia:: Spinal Anesthesiologist: Wing Coughlin Special Medications: 2 g Ancef, 1 g TXA at incision, 1 g TXA closure, 10 mg Decadron, joint cocktail (5 mg Duramorph, 30 mL of 0.5% Ropivicaine, 1000 units of epinephrine, 30 mg of Toradol) Specimen's removed: Bony cuts Estimated Blood Loss (mL): 30 Fluids Replaced: 600 mL crystalloid Description of Procedure: Implants used: 1. Keisha size 5 triathlon cruciate retaining distal femoral press-fit component 2. Keisha size 6 press-fit tritanium tibial baseplate 3. Jefferson X3 9 mm PS polyethylene 4. Jefferson X3 35 mm asymmetric patella Brief history operative indications: 69-year-old F with history of right knee osteoarthritis with radiographic findings with loss of joint space, osteophyte formation and subchondral sclerosis. Failed conservative measures as mentioned in the H&P. Discussion of total knee arthroplasty as well as risk and benefits were discussed the patient including but not limited to blood loss, DVTs, PEs, neurovascular damage, general risk of anesthesia including loss of life, and stiffness or instability were discussed with patient. Patient demonstrated understanding and was able to sign informed consent. Procedure: On the date of procedure patient's right lower extremity was marked in the preoperative area. The patient was then taken back to the operating room where the patient was placed on the table in the supine position. All bony prominences were identified a well-padded. Anesthesia assumed control of the C-spine and airway and remained controlled throughout the remainder of the procedure. A tourniquet was placed on the right upper thigh and the leg was prepped in a sterile fashion. The surgeon then scrubbed at this time .Upon reentering the room right lower extremity was draped in a standard orthopedic fashion. A timeout was then called and everyone agreed upon the side, the site, the procedure to be performed, patient's identity and antibiotics given. Esmarch bandage was used to exsanguinate the extremity and the tourniquet was placed up to 250 mmHg with the knee in flexion. A midline skin incision was made and sharp dissection was taken down through skin subcutaneous tissue and fat. Using the previous medial incision a curvilinear incision was made and the patella was subluxed laterally. We chose this incision because the most recent incisions were from 1972 and it was felt appropriate blood supply should have been reincorporated. An Appropriate deep MCL release was done and the fat pad was resected. Our attention was then directed to the patella. The patella was everted and a flat resection was made. The knee was then flexed up in 2 femoral pins were placed inside the incision and 2 tibial pins were placed outside the incision in the medial tibia bicortically. Once this was completed the 2 checkpoints in the femur and tibia were placed. Knee was then flexed up and the bony landmarks were registered. Once this was completed knee was taken through range of motion and manually stressed allowing us to a plan for an appropriate tibial cut. The robotic arm was brought into the field sterilely and checkpoint and saw were registered. Based on the patient's deformity the tibial cut was made in 2 degrees of varus. At this time the tensioner was then placed in the joint and ligament tension was checked at 90 degrees and full extension. Based on the patient's ligamentous tension appropriate adjustments were made to the operative plan and ligament releases were done. Once we were happy with our operative plan with balanced flexion and extension gaps our attention was directed to the femur. The robot was brought into the field sterilely and registered. Posterior condylar cuts, anterior chamfer cuts and anterior cuts were appropriately made for a size 5 femur. When these were completed the saws were switched out in the distal femoral and posterior chamfer cuts were made. Protecting the soft tissue throughout this time. A size 6 tibial base plate was selected. the knee was flexed to 90 degrees and the soft tissues and posterior osteophytes were removed from the joint. 40 cc of the periarticular injection was injected into the posterior medial corner of the joint. Knee was flexed up and a femoral box cut was made. The appropriate trials were then placed on the femur and tibia. A trial po lyethylene was trialed to ensure proper balancing and stability of the knee. The appropriate tibial internal rotation was then marked with a bovie. Our attention was then directed to the patella. The lug holes were drilled and the patella trial was placed. Patellar tracking was checked and deemed appropriate. Once we were happy lug holes were drilled for the femur and trial components were removed. the tibia was subluxed and pinned into place and the keel was punched and drilled appropriately. Final components were verified and opened, and cement was mixed in a vacuum. [employer] Simplex cement was used. The wound was copiously irrigated with normal saline. When the cement was ready the components were impacted into place starting with the tibia, femur and finally cementing the patella. The trial poly component was placed and the knee was placed in full extension. All excess cement was removed in the process. Once the cement had cured the tracking, alignment and balance were verified and a size 9 mm PS polyethylene component was placed. Once the final components were placed an Irrisept lavage was performed and the wound was copiously irrigated with normal saline solution and the periarticular injection was given. The wound was closed in a layer xavier fashion using #1 vicryl interrupted sutures for the arthrotomy, 2-0 interrupted Vicryl suture for the subcuticular layer and jessica for final skin closure. A sterile compressive dressing was then placed. The patient was then awakened from anesthesia, transferred to the [facility] and transferred to the PACU for recovery. Post op plan DVT ppx: ASA 81mg BID, thigh high compression stockings Follow up: in office in 2 weeks for wound check PT: to start POD #0 at hospital, outpatient PT should be arranged. Due to the complexity of this case robotic arm was used to assist in the surgery to improve accuracy and clinical outcomes. - Complications NONE - Admit VTE Documentation VTE Present on Admission: No VTE Mechan Device Prophylaxis: SCD's, Thigh High ANDREZ Hose VTE Pharm Prophylaxis ordered?: Yes
[2019-12-13 10:01] LABS: Bedside Glucose 184 mg/dL (70-110)
--- NOTE | 2019-12-13 10:05 | RAD_ITS ---
STUDY: X-RAY - RIGHT KNEE REASON FOR EXAM: Male, 69 years old. POST OP TKA TECHNIQUE: AP and lateral view(s) of the knee. COMPARISON: None. FINDINGS: Normal visualized distal femur. Normal visualized proximal tibia and fibula. Normal proximal tibiofibular articulation. The patient is status post total knee replacement. There is good alignment. Postoperative soft tissue changes. RAD/Knee 1 or 2 Views IMPRESSION: Status post total knee replacement. There is good alignment. Postoperative soft tissue changes. Electronically Signed: Virgil Orourke, at 11:23 EDT , Service support ,
[2019-12-13] MEDS: Cefazolin 1 GM/50 ML BAG IV (13:49)
== END 2019-12-13 14:53 | disposition home or self-care (01) ==
LOC: SDC 05:23 → AC 05:24
PROVIDERS: Anesthesiology; PCP Family Medicine; Referring Provider Specialist; Visit Provider Specialist
PROC: 0SRC0JZ Replacement of Right Knee Joint with Synthetic Substitute, Open Approach (ICD-10-PCS; CPT 27447; principal; 2019-12-13 07:00)
DX: M17.31 Unilateral post-traumatic osteoarthritis, right knee (principal); Z11.59 Encounter for screening for other viral diseases; I10 Essential (primary) hypertension; E11.9 Type 2 diabetes mellitus without complications; M10.9 Gout, unspecified; Z79.82 Long term (current) use of aspirin; Z79.84 Long term (current) use of oral hypoglycemic drugs; Z79.899 Other long term (current) drug therapy
CPT/HCPCS: 27447; S2900; 73560; 82962; 83735; 87077; 87081; 87635; 94799; 97162; 97166; C1776; J7120; U0003

== ENCOUNTER → 2020-01-15 10:12 | Outpatient (CLI) | payer MEDICARE, BC, SELFPAY ==
[2019-12-13 05:49] VITALS: BMI 24.0
[2020-01-15 11:14] LABS: Erythrocyte Sedimentation Rate 24 mm/hr (0-20)
[2020-01-15 11:16] LABS: Absolute Neutrophil Count 5.1 X10^3/uL (2.0-7.7); Basophil# 0.04 X10^3/uL; Basophil% 0.5 % (0-1); Eosinophil# 0.03 X10^3/uL; Eosinophils% 0.4 % (0-5); Hematocrit 41.3 % (40-54); Hemoglobin 13.8 g/dL (13.0-16.5); Lymphocyte % 21.9 % (19-41); Mean Corp Hgb Conc 33.4 g/dL (32-36); Mean Corpuscular Hgb 33.2 pg (27.0-32.0); Mean Corpuscular Volume 99.3 fL (80-94); Mean Platelet Vol. 10.4 fl (6.2-12.0); Monocyte# 0.85 X10^3/uL; Monocyte% 10.9 % (0-10); NRBC Flagged by Analyzer 0 % (0-5); Neutrophil # 5.13 X10^3/uL (2.7-7.7); Neutrophil % 65.9 % (47-70); Platelet Count 216 K/mm3 (150-450); RBC Distribution Width CV 13.1 % (11.6-14.6); RBC Distribution Width SD 47.7 fl (35.1-43.9); Red Blood Count 4.16 M/mm3 (4.6-6.2); White Blood Count 7.8 K/mm3 (4.4-11.0)
[2020-01-15 11:52] LABS: CRP 5.72 mg/L (0.0-3.0)
== END ==
LOC: LAB.FUTURE 10:21 → LAB 10:22
PROVIDERS: PCP Family Medicine; Referring Provider Specialist; Visit Provider Specialist
DX: Z96.651 Presence of right artificial knee joint (principal)
CPT/HCPCS: 36415; 85025; 85652; 86140

== ENCOUNTER → 2020-02-27 10:21 | Outpatient (CLI) | payer MEDICARE, BC, SELFPAY ==
[2019-12-13 05:49] VITALS: BMI 24.0
== END ==
PROVIDERS: PCP Family Medicine; Referring Provider Urology; Visit Provider Urology
DX: Z12.5 Encounter for screening for malignant neoplasm of prostate (principal)
CPT/HCPCS: 36415; 84153; G0103

== ENCOUNTER → 2020-06-27 10:17 | Outpatient (CLI) | payer MEDICARE, BC, SELFPAY ==
[2019-12-13 05:49] VITALS: BMI 24.0
[2020-06-27 12:39] LABS: Microalbumin,Random Urine 10.9 mg/L (NO RANGE EST.)
[2020-06-27 13:11] LABS: Cholesterol 265 mg/dL (200); High Density Lipoprotein 53 mg/dL; Triglycerides 349 mg/dL; Very Low Density Lipoprotein 70 mg/dL (5-40)
[2020-06-27 13:15] LABS: ALB/GLOB Ratio 1.2 RATIO (0.9-2.4); AST(SGOT) 20 U/L (15-37); Alanine Aminotransfer ALT/SGPT 37 U/L (16-61); Albumin, Serum 4.3 g/dL (3.2-5.0); Alkaline Phosphatase 67 U/L (45-117); Anion Gap 10 (5-15); BUN 18 mg/dL (7-18); Calcium,Total 9.3 mg/dL (8.5-10.1); Chloride 105 mmol/L (98-107); EST Glomerular Filtration Rate 64 mL/min (>60); Est Glom Filt Rate - Afr Amer 77 mL/min (>60); Globulin 3.7 g/dL (2.2-4.2); Glucose 109 mg/dL (74-106); Sodium Level 138 mmol/L (136-145); Thyroid Stim Hormone (TSH) 3.01 uIU/mL (0.358-3.74)
[2020-06-27 13:49] LABS: Hepatitis C Antibody Non-Reactive (Nonreactive); Vitamin B12 260 pg/mL (211-911)
== END ==
PROVIDERS: PCP Family Medicine; Referring Provider Family Medicine; Visit Provider Family Medicine
DX: Z11.59 Encounter for screening for other viral diseases (principal); E11.9 Type 2 diabetes mellitus without complications
CPT/HCPCS: 36415; 80048; 80053; 80061; 82043; 82607; 84443; 86803

== ENCOUNTER 2020-07-04 15:56 | Outpatient (RCR) | payer MEDICARE, BC, SELFPAY ==
[2019-12-13 05:49] VITALS: BMI 24.0
[2020-07-04] MEDS: COVID-19 VACC, MRNA(PFIZER)/PF 30 MCG/0.3 ML SYRINGE IM (07:11)
[2020-07-25] MEDS: COVID-19 VACC, MRNA(PFIZER)/PF 30 MCG/0.3 ML SYRINGE IM (07:02)
== END 2020-07-04 23:59 ==
LOC: IMMUN 15:56
PROVIDERS: PCP Family Medicine; Visit Provider Family Medicine
DX: Z23 Encounter for immunization (principal)
CPT/HCPCS: 0001A; 0002A

== ENCOUNTER 2020-11-23 05:04 | Inpatient (IN) | payer MEDICARE, BC, SELFPAY ==
[2019-12-13 05:49] VITALS: BMI 24.0
[2020-11-23] VITALS (24 sets, daily range): BP systolic 98–168; BP diastolic 67–107; PULSE 56–114; RESP 15–29; TEMP 36.2–36.3; O2SAT 95–100; BMI 24.5; BMI 25.2
--- NOTE | 2020-11-23 05:16 | EDS_ITS ---
HPI History of Present Illness Chief Complaint: Chest Pain Narrative Narrative: 70-year-old male presenting with chest pain. He states he had chest pain starting yesterday which resolved. He described this as pressure. This morning he woke up at about 3:30 AM with chest pain and pressure and then he states it felt sharp. He states he feels it in both arms. Patient states that he is not lightheaded or dizzy. Patient admits to a normal stress test and echocardiogram about a couple of years ago. Patient has history of hypertension and diabetes. [facility] Medical History (Updated 11/23/20 @ 06:[address] Brennan Esteves MD) Diabetes mellitus Gout Home Medications allopurinol 100 mg PO BID 08/27/13 [History Last Taken 08/27/13] aspirin 81 mg PO DAILY 08/27/13 [History Last Taken 08/27/13] metformin 1,000 mg PO BID 08/27/13 [History Last Taken 08/30/13 07:00 500 MG] cholecalciferol (vitamin D3) 25 mcg PO DAILY 11/28/19 [History Last Taken Unkn own] glimepiride 1 mg PO DAILY 11/28/19 [History Last Taken Unknown] losartan 50 mg PO DAILY 11/28/19 [History Last Taken Unknown] Allergy/AdvReac Type Severity Reaction Status Date / Time No Known Allergies Allergy Verified 11/23/20 05:07 Family History (Updated 11/23/20 @ 06:[address] Brennan Esteves MD) Other CVA (cerebral vascular accident) Surgical History (Updated 11/23/20 @ 06:[address] Brennan Esteves MD) H/O knee surgery Social History Smoking Status: Never smoker ROS ROS ED Constitutional Constitutional ED: Denies chills or fever(s) Eyes Eyes: Denies blurry vision or diplopia ENT ENT ED: Denies rhinorrhea or sore throat Cardiovascular Cardiovascular: Reports chest pain; Denies palpitations or racing heartbeat Respiratory/Chest Respiratory/Chest: Denies cough or dyspnea Gastrointestinal Gastrointestinal: Denies abdominal pain, nausea or vomiting Genitourinary Genitourinary ED: Denies dysuria or hematuria Musculoskeletal Musculoskeletal: Denies arthralgias or myalgias Integumentary Denies Abrasions or rash Neurologic Neurologic: Denies headache(s) or paresthesias Psychiatric Psychiatric: Denies anxiety or depression EXAM Physical Exam Const Vital Signs: 11/23/20 05:04 11/23/20 05:23 11/23/20 05:37 Temperature 97.1 F L Temperature Source Temporal Pulse Rate 87 94 Respiratory Rate 17 Respiratory Pattern Normal Blood Pressure 159/94 H 168/94 H Blood Pressure Mean 115 Pulse Ox 99 Oxygen Delivery Method Room Air 11/23/20 05:39 11/23/20 05:44 Temperature Temperature Source Pulse Rate 102 H 102 H Respiratory Rate 15 18 Respiratory Pattern Blood Pressure 168/94 H 142/92 H Blood Pressure Mean 118 108 Pulse Ox 96 Oxygen Delivery Method Room Air Room Air Positive well nourished General Appearance ED: NAD HEENT Reports moist mucous membranes normocephalic and atraumatic Eyes PERRL and EOMs intact bilaterally Resp normal respiratory effort Effort and Inspection: respiratory distress Cardio regular rate and regular rhythm GI normal to inspection, nondistended, normoactive bowel sounds Neuro oriented x3 Sensorium / Orientation: awake and alert Psych mental status grossly normal Skin no rashes or lesions noted and no wounds Heart Score History: Highly Suspicious ECG: Significant ST-Depression Age: >/= 65 years Risk Factors: 1 or 2 Risk Factors Troponin: >/=3 x Normal Limit Score: 9 MDM MDM MDM Narrative Medical decision making narrative: Patient presenting with chest pain which he states is 6 of 10. He states he had this yesterday and it felt like chest pressure but resolved. Patient states that this woke him up this morning with sharp pain and pressure in the central chest and then he feels it radiating to his arms. Initial EKG on arrival interpreted by myself shows ST depressions in V2, V3, V4 without reciprocal changes. He has a ventricular rate of 89 bpm. Posterior EKG was performed and shows depressions in V2 and V3 as well as elevations in V4, V5. STEMI alert was called. Discussed with Dr. Barker who did review the EKGs and agrees this is a STEMI. Patient given 324 mg of aspirin, 180 mg of Brilinta, 4000 units of heparin. Patient initially given morphine for pain and still has [address] Barker recommended trying nitroglycerin. This did improve the patient's pain a little but he only had 1 nitroglycerin prior to being transported to the [facility]. After patient was transported his blood work did show that he had no leukocytosis. Hemoglobin hematocrit are stable. Platelets are normal. PT/INR normal. Creatinine is slightly elevated 1.33. Troponin returned at 517. Chest x-ray on my interpretation shows no acute cardiopulmonary process. Patient was transported to the [facility] in stable condition. Impression: 1. STEMI Lab Data Attestation: I reviewed the patient's lab results. Labs: Laboratory Results - last 24 hr 11/23/20 11/23/20 11/23/20 05:15 05:15 05:15 WBC 6.1 RBC 4.26 L Hgb 14.3 Hct 41.0 MCV 96.2 H MCH 33.6 H MCHC 34.9 RDW Std Deviation 47.3 H RDW Coeff of Philippe 13.3 Plt Count 190 MPV 10.7 Immature Gran % (Auto) 0.700 Neut % (Auto) 52.2 Lymph % (Auto) 30.6 [place] % (Auto) 14.2 H Eos % (Auto) 1.6 Baso % (Auto) 0.7 Absolute Neuts (auto) 3.2 Absolute Lymphs (auto) 1.88 Nucleated RBC % 0 PT 11.8 INR 0.9 APTT 31.0 Sodium 139 Potassium 3.7 Chloride 107 Carbon Dioxide 20.0 L Anion Gap 12 BUN 19 H Creatinine 1.33 H Estim Creat Clear Calc 54.89 Est GFR (MDRD) Af Amer 69 Est GFR (MDRD) Non-Af 57 L BUN/Creatinine Ratio 14.3 Glucose 200 H Calcium 9.0 Troponin I High Sens 517.1 H* Discharge Plan Triage Chief Complaint: Chest Pain ED Provider: Romeo Vanessa Dx/Rx/DC Orders Prescriptions: No Action allopurinol 100 MG tablet 100 mg PO BID RF: 0 aspirin 81 MG tablet 81 mg PO DAILY RF: 0 metformin 500 MG tablet 1,000 mg PO BID RF: 0 glimepiride 1 MG tablet 1 mg PO DAILY RF: 0 losartan 25 MG tablet 50 mg PO DAILY RF: 0 cholecalciferol (vitamin D3) 25 MCG tablet 25 mcg PO DAILY RF: 0 Primary Care Provider: Jose Haynes
[2020-11-23] MEDS: Heparin Injection (Vial) 5,000 UNIT/ML VIAL 4000 UNIT IV (05:17)
[2020-11-23] MEDS: TICAGRELOR 90 MG TABLET 180 MG PO (05:18)
[2020-11-23] MEDS: Morphine 4 MG/ML Syringe IV (05:18)
[2020-11-23] MEDS: Aspirin 81 MG TAB.CHEW 324 MG PO (05:20)
--- NOTE | 2020-11-23 05:22 | RAD_ITS ---
STUDY: X-RAY CHEST REASON FOR EXAM: Male, 70 years old. chest pain TECHNIQUE: Single AP portable view of the chest. COMPARISON: 06/25/17 FINDINGS: The lungs are clear and expanded. There is no demonstrated pleural abnormality. Normal size heart. Normal mediastinum and ketty. Normal visualized pulmonary arteries. Normal visualized aortic arch and descending thoracic aorta. Normal visualized thoracic spine. Normal visualized ribs, clavicles, and shoulders. There is no demonstrated abnormality of the visualized soft tissue structures of the upper abdomen. RAD/Chest 1 View (Portable) IMPRESSION: Normal x-ray examination of the chest. Electronically Signed: Hunter Cope DO at 6:21 EDT Tel , Service support ,
--- NOTE | 2020-11-23 05:35 | PCM.HP.STD ---
HPI - General HPI Narrative AARON ELKINS, is a 70 M with a significant history of gout; hyperlipidemia and diabetes mellitus who presents to the emergency department with substernal chest pain that woke him up from the sleep. His pain started 3 hours before presentation. He describes pain as sharp tightness and pressure. A day before presentation he had the same pain but the pain went away. The pain radiates into his bilateral arms where he has a tingling and cold sensation. He denies any aggravating or ameliorating factors to the pain. His pain is persistent. He denies any associated symptoms of nausea, vomiting, diaphoresis or shortness of breath. He denies ever having the same type of chest pain. Initial EKG done at emergency department showed ST depressions in T wave inversions in lead V1, V2, V3 and V4. Follow-up EKG showed ST elevation in leads III V4; and V5 and with ST depressions in leads aVL and leads V2 as well as T wave flattening in leads V1. Patient was given full dose aspirin; Brilinta and 4000 units of heparin IV at the emergency department. He was initially given morphine sulfate but because his pain persistent cardiology recommend the patient be given sublingual nitroglycerin. [facility] Medical History (Updated 11/23/20 @ 06:[address] Brennan Esteves MD) Diabetes mellitus Gout Home Medications allopurinol 100 mg PO BID 08/27/13 [History Last Taken 08/27/13] aspirin 81 mg PO DAILY 08/27/13 [History Last Taken 08/27/13] metformin 1,000 mg PO BID 08/27/13 [History Last Taken 08/30/13 07:00 500 MG] cholecalciferol (vitamin D3) 25 mcg PO DAILY 11/28/19 [History Last Taken Unknown] glimepiride 1 mg PO DAILY 11/28/19 [History Last Taken Unknown] losartan 50 mg PO DAILY 11/28/19 [History Last Taken Unknown] Allergy/AdvReac Type Severity Reaction Status Date / Time No Known Allergies Allergy Verified 11/23/20 05:07 Family History (Updated 11/23/20 @ 06:[address] Brennan Esteves MD) Other CVA (cerebral vascular accident) Surgical History (Updated 11/23/20 @ 06:[address] Brennan Esteves MD) H/O knee surgery Social History Smoking Status: Never smoker ROS ROS Narrative Constitutional: Denies anorexia and change in weight Eyes: Denies blurry vision, change in eye color, change in vision, discharge from eye(s), double vision, erythema, eye pain, loss of vision or other HEENT: Denies abnormal hearing, dysphagia, ear pain, epistaxis, headache(s), hearing loss, nasal congestion, nasal discharge, post nasal drip, sinus pressure, sore throat or other Cardiovascular: Report chest pain. Denies dyspnea on exertion, orthopnea and paroxysmal nocturnal dyspnea Respiratory/Chest: Denies cough, excessive phlegm production, shortness of breath with exertion and wheezing Gastrointestinal: Denies abdominal pain, coffee ground emesis, constipation, diarrhea, dyspepsia, hematemesis, hematochezia, loose stools, melena, nausea, vomiting or other Genitourinary: Denies burning urination, difficulty urinating, dysuria, hematuria, nocturia, urinary frequency, urinary hesitancy, urinary incontinence, urinary urgency or other Musculoskeletal: Reports arm pain. Denies arthralgias, back pain, joint pain, joint stiffness, joint swelling, myalgias, neck pain or other Neurologic: Denies abnormal gait, abnormal speech, confusion, disequilibrium, dizziness, focal weakness, headache(s), numbness, paresthesias, seizure-like activity, seizures, syncope, tingling, tremor(s) or other Psychiatric: Denies anxiety, depression, homicidal ideation, suicidal ideation or other Endocrinology: Denies change in body appearance, cold intolerance, excessive sweating, heat intolerance, polydipsia, polyuria or other Hematologic/Lymphatic: Denies anemia, easy bleeding, easy bruising, lymphadenopathy or other Integumentary: Denies ulcer on buttocks. Allergic/Immunologic: Denies rhinitis, hives, eczema, asthma or other Vital Signs Vital Signs Vital Signs: 11/23/20 05:04 11/23/20 05:23 Temperature 97.1 F L Temperature Source Temporal Pulse Rate 87 Respiratory Rate 17 Respiratory Pattern Normal Blood Pressure 159/94 H Blood Pressure Mean 115 Pulse Ox 99 Oxygen Delivery Method Room Air Weight Weight: 77.564 kg Body Mass Index (BMI) 24.5 Physical Exam Narrative Physical exam: General: Well-nourished, well-developed, no acute distress Head: Normocephalic, atraumatic, no tenderness Eyes: PERRLA, EOMI ENT, no trauma, moist mucous membranes, no rhinorrhea Neck: Nontender, full range of motion, no spinal tenderness, deformities, step-off CVS: Regular rate and rhythm Respiratory no acute distress, clear to auscultation bilaterally, chest wall nontender, no wheezing Abdomen: Soft, nontender, nondistended, normal bowel sounds, no masses : Deferred Back: Nontender, no CVA tenderness, no midline spinal tenderness, deformities, step-offs Extremities: Nontender full range of motion, no trauma Skin: Normal color, no trauma, abrasions Neuro: Alert, oriented, cranial nerves II through XII grossly intact. Psychiatry: Normal mood. Normal affect. Not depressed. Not anxious. Results Lab / Micro Data Result Diagrams: 11/23/20 05:15 11/23/20 05:15 Assessment & Plan Assessment/Plan (1) STEMI (ST elevation myocardial infarction): QUALIFIERS: Involved coronary artery: unspecified coronary artery Qualified Code(s): I21.3 - ST elevation (STEMI) myocardial infarction of unspecified site (2) Hyperlipidemia: QUALIFIERS: Hyperlipidemia type: mixed hyperlipidemia Qualified Code(s): E78.2 - Mixed hyperlipidemia PLAN: STEMI Chest x-ray by my interpretation: No acute pulmonary process. EKG by my interpretation: STEMI Received full dose aspirin Brilinta and IV heparin at the emergency department. Daily aspirin ordered. Trend troponin Cardiology planning took patient to Completion Engineer immediately. Admit to intensive care unit. Hyperlipidemia Review of old records shows that patient had lipid panel on 06/27/2020. Triglyceride was 349; cholesterol was 265; LDL was 142; VLDL was 70. Start Lipitor. Repeat lipid panel. Hypertension Blood pressure is not within goal Losartan continued. Trend blood pressure and adjust blood pressure medications. Diabetes mellitus Patient with hyperglycemia on presentation Hold home glimepiride and Metformin Accu-Chek QA [facility] with correction scale insulin. When no longer n.p.o. continue to chnaging to [facility]. DVT prophylaxis SCD Charges/Coding Multi Select Codes Visit Charges Visit Charges: 78745 Init Hosp L3
[2020-11-23] MEDS: Nitroglycerin SL (ED/IMG/CATH) 0.4 MG TABLET SL (05:37)
[2020-11-23 05:44] LABS: Absolute Lymphocyte Count 1.88 X10^3/uL (0.83-4.51); Absolute Neutrophil Count 3.2 X10^3/uL (2.0-7.7); Basophil# 0.04 X10^3/uL; Basophil% 0.7 % (0-1); Eosinophils% 1.6 % (0-5); Hemoglobin 14.3 g/dL (13.0-16.5); Lymphocyte # 1.88 X10^3/ul (0.83-4.51); Lymphocyte % 30.6 % (19-41); Mean Corp Hgb Conc 34.9 g/dL (32-36); Mean Corpuscular Hgb 33.6 pg (27.0-32.0); Mean Corpuscular Volume 96.2 fL (80-94); Mean Platelet Vol. 10.7 fl (6.2-12.0); Monocyte# 0.87 X10^3/uL; Monocyte% 14.2 % (0-10); NRBC Flagged by Analyzer 0 % (0-5); Neutrophil # 3.21 X10^3/uL (2.7-7.7); Neutrophil % 52.2 % (47-70); Platelet Count 190 K/mm3 (150-450); RBC Distribution Width CV 13.3 % (11.6-14.6); RBC Distribution Width SD 47.3 fl (35.1-43.9); Red Blood Count 4.26 M/mm3 (4.6-6.2); White Blood Count 6.1 K/mm3 (4.4-11.0)
[2020-11-23 05:51] LABS: International Normalized Ratio 0.9; Prothrombin Time (Protime)PT. 11.8 SECONDS (11.7-14.9)
--- NOTE | 2020-11-23 05:51 | EKG12_ITS ---
Test Reason : CP Blood Pressure : / mmHG Vent. Rate : 089 BPM Atrial Rate : 089 BPM P-R Int : 178 ms QRS Dur : 096 ms QT Int : 342 ms P-R-T Axes : 020 -30 073 degrees QTc Int : 416 ms Normal sinus rhythm Left axis deviation Inferior infarct , age undetermined Possible Anterior infarct , age undetermined Marked ST abnormality, possible septal subendocardial injury Cannot exclude Posterior NJ-Possibly Acute Abnormal ECG Confirmed by JOY MICHAELS, DANIEL ([id number]), research editor DORA TAYLOR ([id number]) on 11/26/2020 10:26:51 AM Referred By: Aureliano Barker Confirmed By:DANIEL HAMILTON MD
--- NOTE | 2020-11-23 05:51 | EKG12_ITS ---
Test Reason : POSTIER Blood Pressure : / mmHG Vent. Rate : 090 BPM Atrial Rate : 090 BPM P-R Int : 180 ms QRS Dur : 098 ms QT Int : 336 ms P-R-T Axes : 031 -28 088 degrees QTc Int : 411 ms Normal sinus rhythm Inferior infarct , age undetermined Posterior-Lateral ME, possibly acute ACUTE ME / STEMI Abnormal ECG Confirmed by JOY MICHAELS, DANIEL ([id number]), publication editor DORA TAYLOR ([id number]) on 11/26/2020 10:26:22 AM Referred By: Aureliano Barker Confirmed By:DANIEL HAMILTON MD
[2020-11-23 06:00] LABS: Anion Gap 12 (5-15); BUN 19 mg/dL (7-18); BUN/Creat Ratio 14.3 RATIO (10-20); Chloride 107 mmol/L (98-107); Creatinine, Serum 1.33 mg/dL (0.70-1.30); EST Glomerular Filtration Rate 57 mL/min (>60); Est Glom Filt Rate - Afr Amer 69 mL/min (>60); Estimated Creatinine Clearance 54.89 ml/min; Glucose 200 mg/dL (74-106); Potassium 3.7 mmol/L (3.5-5.1); Sodium Level 139 mmol/L (136-145); Troponin-I HS 517.1 pg/mL (3.0-78.5)
--- NOTE | 2020-11-23 07:11 | ECHOD_ITS ---
Reason For Study: S/P [place] Procedure This was a 2D Doppler, Color Flow transthoracic echocardiogram. Exam performed portable in ICU/CCU. Left Ventricle Mildly dilated left ventricle. The estimated ejection fraction is EF 40-45 %. Right Ventricle Normal right ventricle. Normal systolic function. Atria Normal left atrium. Normal right atrium. Mitral Valve There is mild mitral annular calcification. No mitral valve insufficiency. Tricuspid Valve Normal tricuspid valve. Aortic Valve Aortic sclerosis, no stenosis. Pulmonic Valve The pulmonic valve is not well visualized. Great Vessels Normal aortic root. Pericardium/Pleural No pericardial effusion. MMode/2D Measurements & Calculations LVIDd: 5.0 cm IVSd: 1.1 cm Ao root diam: 3.2 cm LVIDs: 4.0 cm LVPWd: 0.98 cm RVDd: 4.2 cm FS: 20.8 % LAV(MOD-bp): 26.7 ml LA A4 area: 11.9 cm2 LA dimension(2D): 3.1 cm LAV(MOD-bp) Indexed: 13.5 ml/m2 LAV(MOD-sp2): 25.3 ml LAV(MOD-sp4): 25.8 ml Time Measurements MV dec time: 0.11 sec Doppler Measurements & Calculations MV E max isaiah: 54.5 cm/sec Lat Peak E' Isaiah: 5.6 cm/sec Med Peak E' Isaiah: 5.1 cm/sec MV A max isaiah: 84.8 cm/sec E/E' lat: 9.7 E/E' med: 10.7 MV E/A: 0.64 Ao V2 max: 89.9 cm/sec LV V1 max: 71.0 cm/sec PA V2 max: 153.4 cm/sec Ao max P.2 mmHg LV V1 max P.0 mmHg ECHO/Echo Complete Interpretation Summary The estimated ejection fraction is EF 40-45 %. Ordering Physician: Aureliano Barker Referring Physician: Mina Haynes Performed By: Bushra Rodriguez, STEPHEN, RVT
--- NOTE | 2020-11-23 07:14 | EKG12_ITS ---
Test Reason : ARRTHYMIA Blood Pressure : / mmHG Vent. Rate : 059 BPM Atrial Rate : 059 BPM P-R Int : 192 ms QRS Dur : 080 ms QT Int : 394 ms P-R-T Axes : 034 -26 067 degrees QTc Int : 390 ms Sinus bradycardia Inferior infarct , age undetermined Abnormal ECG Confirmed by CM MICHAELS, MINNA ([id number]), editor department DORA TAYLOR ([id number]) on 11/26/2020 9:55:06 AM Referred By: Aureliano Barker Confirmed By:MINNA PABON MD
--- NOTE | 2020-11-23 07:22 | PCM.OP.PRO ---
Procedure Report Date of Procedure: 11/23/20 Procedure performed; 1. Left heart catheterization 2. Selective coronary angiography 3. Moderate sedation #4 left ventriculogram 5. Placement of TR band to the right radial artery arteriotomy site. Preprocedure diagnosis; 70-year-old patient history of longstanding diabetes mellitus presented to the [facility] ER complaining of severe retrosternal chest pain this morning and had change in the EKG Notably around 2 mm elevation noted in the lateral leads especially in lead V5 V6 and lead III as well some reciprocal changes were noted in V2 V3 ST depression and symptoms of severe retrosternal chest pain responded well to medical treatment with nitroglycerin and morphine in the ER and was given Brilinta 180 mg, aspirin and heparin 4000 in the ER Evaluated the patient in the ER patient is not a smoker had a history of diabetes mellitus which been treated with Metformin as well he been on allopurinol, and active no other cardiac history reported. Consent; Risk and benefit of procedure explained in detail to the patient elected to proceed informed consent obtained. Access; 6 Montenegrin sheath placed in the right radial artery approach, a cocktail of verapamil, heparin as well as nitroglycerin was given through the sheath. Diagnostic catheter used; 1. 5 Montenegrin JL 3.5 2. 5 Montenegrin JR4 3. 5 Montenegrin pigtail catheter. Procedure in detail; STEMI alert was called from the ER patient seen and evaluated in the ER and a change in the EKG noted and taken out of the emergency to the Medical Planner We will proceed with the access from the right radial artery, and then will proceed with 5 Montenegrin JL 3.5 advanced ascending aorta cannulated the left main and multiple views of the left coronary system obtained including RUTHANN, PARSON cranial and caudal views. Following this the catheter exchanged for 5 Montenegrin JR4, selective angiographic view of right carotid system were obtained including RUTHANN, PARSON cranial and caudal views Following this catheter exchanged for 5 Montenegrin pigtail catheter and a left ventriculogram demonstrated cardioprotection. Following this all catheter removed, hemostasis maintained with placement of TR band to the right radial artery arteriotomy site Findings; Hemodynamics; LV systolic function preserved ejection fraction in the range of 55-60% There is no segmental wall motion abnormalities noted. LVEDP measuring 28 mmHg. Systolic gradient across aortic valve is noted around 20 mmHg No mitral regurgitation noted. Findings of coronary angiography; 1. Left main coronary artery, nonobstructive atherosclerosis of around 20% distally, moderate-sized vessel. Bifurcating into left anterior descending and the left circumflex. 2. Left anterior descending artery calcified proximal and mid with diffuse atherosclerosis of 90% extending from the proximal to the distal with diffuse atherosclerosis noted in the distal, apical LAD. 3. Proximal left circumflex 70% tortuous vessel followed by multiple segmental 90% and 99% in the distal circumflex OM1 is a small, OM 2 is a small to moderate size. 4. RCA large dominant vessel, tortuous, with a rivas hook appearance proximally calcified, ostial RCA difficult to cannulate properly with 50 to 60% stenosis, mid RCA around 40% stenosis. RCA large dominant vessel bifurcating into posterolateral and RPDA. Conclusion and recommendation; 70-year-old patient with diabetes mellitus who presented with symptoms of chest pain for the last 2 days progressively got worse early this morning symptoms relieved with nitroglycerin was given treatment with heparin aspirin and Brilinta in the ER and the finding of the cholangiography showed diffuse atherosclerosis involving the entire LAD as well as a multiple segmental lesions involving the left circumflex With moderate atherosclerosis involving a large dominant RCA very tortuous calcified. I discussed the finding of cholangiography in detail with the patient and the family the daughter We started the medical treatment with high-dose statin 80 mg atorvastatin, beta-avinash metoprolol 12.5 twice daily, IV nitroglycerin aspirin and noted he was given Brilinta of 180 mg in the ER. He has very critical complex coronary anatomy and my impression that he will be on medical therapy versus PCI and stenting of the complex left circumflex artery. Noted patient had 20 mmHg gradient across aortic valve on the pullback pressure and will evaluate by echocardiogram We will transfer the patient to tertiary cardiac facility, family and patient prefers to be seen at [facility]. We will discuss with the history card clerk and make an arrangement for transfer. Aureliano Barker MD,[facility] The patient history card clerk
[2020-11-23 08:04] LABS: Absolute Lymphocyte Count 2.14 X10^3/uL (0.83-4.51); Absolute Neutrophil Count 5.1 X10^3/uL (2.0-7.7); Basophil# 0.04 X10^3/uL; Basophil% 0.5 % (0-1); Eosinophil# 0.05 X10^3/uL; Eosinophils% 0.6 % (0-5); Hematocrit 40.4 % (40-54); Hemoglobin 14.1 g/dL (13.0-16.5); Lymphocyte # 2.14 X10^3/ul (0.83-4.51); Lymphocyte % 26.1 % (19-41); Mean Corp Hgb Conc 34.9 g/dL (32-36); Mean Corpuscular Hgb 33.1 pg (27.0-32.0); Mean Corpuscular Volume 94.8 fL (80-94); Mean Platelet Vol. 10.3 fl (6.2-12.0); Monocyte# 0.85 X10^3/uL; Monocyte% 10.4 % (0-10); NRBC Flagged by Analyzer 0 % (0-5); Neutrophil # 5.07 X10^3/uL (2.7-7.7); Neutrophil % 61.9 % (47-70); Platelet Count 207 K/mm3 (150-450); RBC Distribution Width CV 13.2 % (11.6-14.6); RBC Distribution Width SD 45.4 fl (35.1-43.9); Red Blood Count 4.26 M/mm3 (4.6-6.2); White Blood Count 8.2 K/mm3 (4.4-11.0)
[2020-11-23 08:15] LABS: Prothrombin Time (Protime)PT. 12.9 SECONDS (11.7-14.9)
[2020-11-23 08:17] LABS: Partial Thromboplast Time 70.5 Seconds (24.1-36.2)
[2020-11-23 08:27] LABS: Anion Gap 10 (5-15); BUN 17 mg/dL (7-18); BUN/Creat Ratio 13.2 RATIO (10-20); Calcium,Total 8.6 mg/dL (8.5-10.1); Chloride 106 mmol/L (98-107); Creatinine, Serum 1.29 mg/dL (0.70-1.30); EST Glomerular Filtration Rate 59 mL/min (>60); Est Glom Filt Rate - Afr Amer 71 mL/min (>60); Estimated Creatinine Clearance 56.59 ml/min; Glucose 204 mg/dL (74-106); Potassium 3.8 mmol/L (3.5-5.1); Sodium Level 136 mmol/L (136-145)
[2020-11-23] MEDS: Metoprolol Tartrate 25 MG Tablet PO (10:26)
[2020-11-23] MEDS: Allopurinol 100 MG Tablet PO (10:27)
[2020-11-23] MEDS: Losartan Potassium 50 MG Tablet PO (10:27)
[2020-11-23] MEDS: Cholecalciferol (VIT D3) 25 MCG TABLET (1,000 UNITS) PO (10:27)
--- NOTE | 2020-11-23 11:26 | PN.HOSP_ITS ---
Subjective Subjective Patient was seen and examined. He denied any chest pain. He is waiting on a transfer to the [facility]. Objective Data Objective Data Vital Signs: Vital Signs Temp Pulse Resp BP Pulse Ox 97.1 F L 104 H 29 H 125/89 H 100 11/23/20 05:04 11/23/20 10:26 11/23/20 09:00 11/23/20 10:26 11/23/20 09:00 Oxygen Flow Rate (L/min) 2 Oxygen Delivery Method Room Air Weight: 79.787 kg Body Mass Index (BMI) 25.2 Intake & Output: Intake and Output for Last 24 Hours 11/21/20 11/22/20 11/23/20 23:59 23:59 23:59 Intake Total 200 / 200 Output Total 1000 / 1000 Balance -800 / -800 Medical Nutrition Assessment Dietitian: Nutrition Therapy Diagnosis Start: 11/23/20 09:58 Freq: Status: Active Protocol: Document 11/23/20 10:19 BP (Rec: 11/23/20 10:19 BP [id number]) Nutrition Malnutrition Evidence of Malnutrition Exists No Intake Problem Decreased Nutrient Needs (specify) Etiology Decreased fat need related to altered cholesterol metabolism /regulation Signs/Symptoms as evidenced by 06/27/20 lipid panel: Triglyceride was 349; cholesterol was 265; LDL was 142; VLDL was 70; HDL 53 and STEMI. Status Active Problem Recommendation Dietitian Recommendations/Changes Will provide Cardiac:CHO controlled diet. Will provide nutrition education as warranted by pt prior to discharge. Lab / Micro Data Result Diagrams: 11/23/20 07:45 11/23/20 07:45 Labs: Laboratory Results - last 24 hr 11/23/20 05:15: PT 11.8, INR 0.9, APTT 31.0 11/23/20 05:15: WBC 6.1, RBC 4.26 L, Hgb 14.3, Hct 41.0, MCV 96.2 H, MCH 33.6 H, MCHC 34.9, RDW Std Deviation 47.3 H, RDW Coeff of Philippe 13.3, Plt Count 190, MPV 10.7, Immature Gran % (Auto) 0.700, Neut % (Auto) 52.2, Lymph % (Auto) 30.6, [place] % (Auto) 14.2 H, Eos % (Auto) 1.6, Baso % (Auto) 0.7, Absolute Neuts (auto) 3.2, Absolute Lymphs (auto) 1.88, Nucleated RBC % 0 11/23/20 05:15: Sodium 139, Potassium 3.7, Chloride 107, Carbon Dioxide 20.0 L, Anion Gap 12, BUN 19 H, Creatinine 1.33 H, Estim Creat Clear Calc 54.89, Est GFR (MDRD) Af Amer 69, Est GFR (MDRD) Non-Af 57 L, BUN/Creatinine Ratio 14.3, Glucose 200 H, Calcium 9.0, Troponin I High Sens 517.1 H* 11/23/20 07:45: WBC 8.2, RBC 4.26 L, Hgb 14.1, Hct 40.4, MCV 94.8 H, MCH 33.1 H, MCHC 34.9, RDW Std Deviation 45.4 H, RDW Coeff of Philippe 13.2, Plt Count 207, MPV 10.3, Immature Gran % (Auto) 0.500, Neut % (Auto) 61.9, Lymph % (Auto) 26.1, Wash[place] % (Auto) 10.4 H, Eos % (Auto) 0.6, Baso % (Auto) 0.5, Absolute Neuts (auto) 5.1, Absolute Lymphs (auto) 2.14, Nucleated RBC % 0 11/23/20 07:45: PT 12.9, INR 1.0, APTT 70.5 H 11/23/20 07:45: Sodium 136, Potassium 3.8, Chloride 106, Carbon Dioxide 20.0 L, Anion Gap 10, BUN 17, Creatinine 1.29, Estim Creat Clear Calc 56.59, Est GFR (MDRD) Af Amer 71, Est GFR (MDRD) Non-Af 59 L, BUN/Creatinine Ratio 13.2, Glucose 204 H, Calcium 8.6, Troponin I High Sens 2005.8 H* 11/23/20 07:45: B-Natriuretic Peptide 80.0 Radiography Diagnostic Testing: Radiology Impression Chest X-Ray 11/23/20 05:22 IMPRESSION: Normal x-ray examination of the chest. Electronically Signed: Hunter Cope DO at 6:21 EDT Tel , Service support , Physical Exam Narrative Physical exam: General: Alert, oriented x3, Cooperative, No apparent distress, well developed HEENT: Atraumatic Oral: Moist Mucosa Neck: Supple Lungs: Clear to auscultation Cardiovascular: HS I+II, regular, no murmurs Abdomen: Bowel Sounds Present, Soft, Non Tender Extremities: No edema Skin: No rashes, No breakdown Neurological: Grossly intact Psych/Mental Status: Appropriate Assessment & Plan Assessment/Plan (1) STEMI (ST elevation myocardial infarction): QUALIFIERS: Involved coronary artery: unspecified coronary artery Qualified Code(s): I21.3 - ST elevation (STEMI) myocardial infarction of [facility] ec[facility] PLAN: 1. Acute STEMI, lateral status post cardiac catheterization Findings show LAD atherosclerosis of 90 percent extending from proximal to distal, left circumflex 70 percent tortuous vessels followed by multiple segmental 90 to 99 percent in the distal circumflex Patient to be transferred to tertiary facility; transfer is pending 2D echo shows EF of 40-45%, otherwise unremarkable Continue on aspirin, statin, metoprolol, losartan, Brilinta 2. Type 2 DM, Home oral hypoglycemic agents on hold Blood sugars fairly controlled, will add insulin sliding scale 3. Hypertension, controlled 4. Rest of his chronic medical conditions remained stable Charges/Coding Visit Charges Inpatient E&M: 05838 Subs Hosp L2
--- NOTE | 2020-11-23 12:30 | NURSING ---
pt had episode hr 29, diaphoretic, nausea, Dr Barker notified , temp pacer pads applied, ekg completed, ntg gtt discontinued, heparin gtt started
--- NOTE | 2020-11-23 13:05 | CASEMGMT ---
RN ISIDRO spoke to nurse Debra. Pt had an episode, laying in bed with wash cloth to forehead with eyes closed. Assessment deferred at this time per nursing. Pt to be trf'd to [facility]. Pt has been accepted, awaiting bed.
[2020-11-23] MEDS: HEPARIN/D5w 25,000 UNITS 25,000 UNITS/250 ML IV.SOLN. 0.1 UNITS IV (13:17)
[2020-11-23] MEDS: 0.9% Normal Saline 1,000 ML 75 ML IV (13:22)
--- NOTE | 2020-11-23 14:00 | NURSING ---
physician ambulance here for transport to [facility] 71 bed 12
--- NOTE | 2020-11-23 14:07 | NURSING ---
received bed @ [facility] report called to Kat, informed daughter Gwen of transfer to [facility] bed 12
--- NOTE | 2020-11-23 14:16 | DCINST_ITS ---
Discharge Instructions Diet Discharge Diet: Low fat / Low cholesterol, 2000 Calorie Control Diet and 2000 mg Sodium Diet Activity Discharge Activity: Return to Normal Activity Follow Up Care Test Results: Test results from this visit will be discussed in further detail at your follow-up appointment, if applicable. Discharge Plan Admission Admit Date/Time: 11/23/20 05:34 Primary Reason for Your Visit: Acute STEMI Attending Provider: Velia Boudreaux Primary Care Provider: Jose Haynes Consulting Providers: Aureliano Barker Discharge Orders/Prescriptions Prescriptions: No Action allopurinol 100 MG tablet 100 mg PO BID RF: 0 aspirin 81 MG tablet 81 mg PO DAILY RF: 0 metformin 500 MG tablet 1,000 mg PO BID RF: 0 glimepiride 1 MG tablet 1 mg PO DAILY RF: 0 losartan 25 MG tablet 50 mg PO DAILY RF: 0 cholecalciferol (vitamin D3) 25 MCG tablet 25 mcg PO DAILY RF: 0 Referrals / Follow Up: Jose Haynes MD [Primary Care Provider] - Disposition Disposition (needs filled in before D/C Order can be placed): Acute Care [facility]
--- NOTE | 2020-11-23 14:16 | PCM.DC.SUM ---
Providers Date of Admission: 11/23/20 Date of Discharge: 11/23/20 Primary Care Physician: Dr. Jose Haynes MD Consultations 11/23/20 07:01 Consult: Cardiology Routine Consulting Provider: Aureliano Barker Reason for Consult: stemi EMERGENT Consult: No MD Notified: Yes Date Notified: 11/23/20 Time Notified: 06:13 Method of Notification: Verbal Method of Consult:: In-Person Reason For Visit: STEMI Diagnosis Discharge Diagnosis (1) STEMI (ST elevation myocardial infarction): Status: Acute Code(s): I21.3 - ST elevation (STEMI) myocardial infarction of unspecified site Qualifiers: Involved coronary artery: unspecified coronary artery Qualified Code(s): I21.3 - ST elevation (STEMI) myocardial infarction of unspecified site Medications at Discharge Home Medications allopurinol 100 mg PO BID 08/27/13 aspirin 81 mg PO DAILY 08/27/13 metformin 1,000 mg PO BID 08/27/13 cholecalciferol (vitamin D3) 25 mcg PO DAILY 11/28/19 glimepiride 1 mg PO DAILY 11/28/19 losartan 50 mg PO DAILY 11/28/19 Hospital Course Procedures 2-D Echocardiogram (11/23/20 - EF 40-45%) and Cardiac catheterization (11/23/20) Summary of Care Provided Minutes Spent on Discharge: 50 Hospital Course: 70-year-old male with past medical history of type II DM, hypertension who presented with chest pain, substernal that woke him up from sleep. Pain was described as pressure-like that radiated to both arms. EKG in the ED was suggestive of lateral acute STEMI with ST elevations in lead III, V4 and V5 and ST depressions in V1 V2 V3 and V4. Patient was taken to the cardiac cath emergently and findings showed LAD atherosclerosis of 90 percent extending from proximal to distal, left circumflex 70 percent tortuous vessels followed by multiple segmental 90 to 99 percent in the distal circumflex. Patient was transferred to the tertiary facility?[facility]. Whilst waiting for transfer, patient became bradycardic transiently. Transfer was escalated. Physical Exam Narrative see physical exam Medical Records Data Medical Nutrition Assessment Dietitian: Nutrition Therapy Diagnosis Start: 11/23/20 09:58 Freq: Status: Active Protocol: Document 11/23/20 10:19 BP (Rec: 11/23/20 10:19 BP [id number]) Nutrition Malnutrition Evidence of Malnutrition Exists No Intake Problem Decreased Nutrient Needs (specify) Etiology Decreased fat need related to altered cholesterol metabolism /regulation Signs/Symptoms as evidenced by 06/27/20 lipid panel: Triglyceride was 349; cholesterol was 265; LDL was 142; VLDL was 70; HDL 53 and STEMI. Status Active Problem Recommendation Dietitian Recommendations/Changes Will provide Cardiac:CHO controlled diet. Will provide nutrition education as warranted by pt prior to discharge. Weight / BMI Weight Weight: 79.787 kg Body Mass Index (BMI) 25.2 ABG / Lab / Microbiology Data Result Diagrams: 11/23/20 07:45 11/23/20 07:45 Laboratory: Laboratory Results - last 24 hr 11/23/20 05:15: PT 11.8, INR 0.9, APTT 31.0 11/23/20 05:15: WBC 6.1, RBC 4.26 L, Hgb 14.3, Hct 41.0, MCV 96.2 H, MCH 33.6 H, MCHC 34.9, RDW Std Deviation 47.3 H, RDW Coeff of Philippe 13.3, Plt Count 190, MPV 10.7, Immature Gran % (Auto) 0.700, Neut % (Auto) 52.2, Lymph % (Auto) 30.6, Arroyo % (Auto) 14.2 H, Eos % (Auto) 1.6, Baso % (Auto) 0.7, Absolute Neuts (auto) 3.2, Absolute Lymphs (auto) 1.88, Nucleated RBC % 0 11/23/20 05:15: Sodium 139, Potassium 3.7, Chloride 107, Carbon Dioxide 20.0 L, Anion Gap 12, BUN 19 H, Creatinine 1.33 H, Estim Creat Clear Calc 54.89, Est GFR (MDRD) Af Amer 69, Est GFR (MDRD) Non-Af 57 L, BUN/Creatinine Ratio 14.3, Glucose 200 H, Calcium 9.0, Troponin I High Sens 517.1 H* 11/23/20 07:45: WBC 8.2, RBC 4.26 L, Hgb 14.1, Hct 40.4, MCV 94.8 H, MCH 33.1 H, MCHC 34.9, RDW Std Deviation 45.4 H, RDW Coeff of Philippe 13.2, Plt Count 207, MPV 10.3, Immature Gran % (Auto) 0.500, Neut % (Auto) 61.9, Lymph % (Auto) 26.1, Arroyo % (Auto) 10.4 H, Eos % (Auto) 0.6, Baso % (Auto) 0.5, Absolute Neuts (auto) 5.1, Absolute Lymphs (auto) 2.14, Nucleated RBC % 0 11/23/20 07:45: PT 12.9, INR 1.0, APTT 70.5 H 11/23/20 07:45: Sodium 136, Potassium 3.8, Chloride 106, Carbon Dioxide 20.0 L, Anion Gap 10, BUN 17, Creatinine 1.29, Estim Creat Clear Calc 56.59, Est GFR (MDRD) Af Amer 71, Est GFR (MDRD) Non-Af 59 L, BUN/Creatinine Ratio 13.2, Glucose 204 H, Calcium 8.6, Troponin I High Sens 2005.8 H* 11/23/20 07:45: B-Natriuretic Peptide 80.0 Radiography Diagnostic Testing: Radiology Impression Chest X-Ray 11/23/20 05:22 IMPRESSION: Normal x-ray examination of the chest. Electronically Signed: Hunter Cope DO at 6:21 EDT Tel , Service support , Echocardiogram 11/23/20 07:11 Interpretation Summary The estimated ejection fraction is EF 40-45 %. Ordering Physician: Aureliano Barker Referring Physician: Mina Haynes Performed By: Bushra Rodriguez, REGGIECS, RVT D/C Instructions Discharge Diet: Low fat / Low cholesterol, 2000 Calorie Control Diet and 2000 mg Sodium Diet Meaningful Use Info Meaningful Use Diagnoses (Choose all that apply): AMI AMI/Post PCI/Angioplasty Aspirin given w/in 24hrs of arrival?: Yes ASA at discharge?: Yes Antiplatelet Therapy at Discharge:: Yes Statins at discharge?: Yes Paul/ARB at discharge?: Yes Beta Edilson at discharge?: Yes Done w/ Acute AK measure.: Yes Documented LVEF (%): 45 Discharge Plan Admission Admit Date/Time: 11/23/20 05:34 Primary Reason for Your Visit: Acute STEMI Attending Provider: Velia Boudreaux Primary Care Provider: Jose Haynes Consulting Providers: Aureliano Barker Discharge Orders/Prescriptions Prescriptions: No Action allopurinol 100 MG tablet 100 mg PO BID RF: 0 aspirin 81 MG tablet 81 mg PO DAILY RF: 0 metformin 500 MG tablet 1,000 mg PO BID RF: 0 glimepiride 1 MG tablet 1 mg PO DAILY RF: 0 losartan 25 MG tablet 50 mg PO DAILY RF: 0 cholecalciferol (vitamin D3) 25 MCG tablet 25 mcg PO DAILY RF: 0 Referrals / Follow Up: Jose Haynes MD [Primary Care Provider] - Disposition Disposition (needs filled in before D/C Order can be placed): Acute [facility] Charges/Coding Visit Charges Inpatient E&M: 58019 Disch Hosp
== END 2020-11-23 14:10 | disposition short-term general hospital (02) | DRG 282 ==
LOC: ED 05:47 → ICU 06:42
PROVIDERS: Admitting Provider Hospitalist; Emergency Provider Student in an Organized Health Care Education/Training Program; PCP Family Medicine; Referring Provider Internal Medicine Interventional Cardiology; Visit Provider Internal Medicine
DX: I21.29 ST elevation (STEMI) myocardial infarction involving other sites (principal); I25.10 Atherosclerotic heart disease of native coronary artery without angina pectoris; I10 Essential (primary) hypertension; E11.9 Type 2 diabetes mellitus without complications; E78.2 Mixed hyperlipidemia; M10.9 Gout, unspecified; Z79.84 Long term (current) use of oral hypoglycemic drugs; Z79.899 Other long term (current) drug therapy
CPT/HCPCS: 71045; 80048; 83880; 84484; 85025; 85610; 85730; 93005; 93306; 93458; 97802; 99152; 99281; 99283; J7030; Q9967; A4216; C1769; C1894; J1940

== ENCOUNTER → 2021-02-20 08:04 | Outpatient (CLI) | payer MEDICARE, BC, SELFPAY ==
[2021-02-20 10:23] LABS: ALB/GLOB Ratio 0.9 RATIO (0.9-2.4); AST(SGOT) 16 U/L (15-37); Alanine Aminotransfer ALT/SGPT 32 U/L (16-61); Albumin, Serum 3.7 g/dL (3.2-5.0); Alkaline Phosphatase 71 U/L (45-117); Anion Gap 7 (5-15); BUN 15 mg/dL (7-18); BUN/Creat Ratio 12.6 RATIO (10-20); Calcium,Total 9.1 mg/dL (8.5-10.1); Chloride 103 mmol/L (98-107); Cholesterol 90 mg/dL (200); Creatinine, Serum 1.19 mg/dL (0.70-1.30); EST Glomerular Filtration Rate 64 mL/min (>60); Est Glom Filt Rate - Afr Amer 78 mL/min (>60); Globulin 4.2 g/dL (2.2-4.2); Glucose 135 mg/dL (74-106); High Density Lipoprotein 34 mg/dL; Potassium 4.5 mmol/L (3.5-5.1); Protein, Total 7.9 g/dL (6.4-8.2); Sodium Level 138 mmol/L (136-145); Triglycerides 120 mg/dL; Very Low Density Lipoprotein 24 mg/dL (5-40)
== END ==
PROVIDERS: PCP Family Medicine; Referring Provider Family Medicine; Visit Provider Family Medicine
DX: I25.2 Old myocardial infarction (principal)
CPT/HCPCS: 36415; 80053; 80061

== ENCOUNTER → 2021-03-03 13:42 | Outpatient (CLI) | payer MEDICARE, BC, SELFPAY ==
[2021-03-03 15:05] LABS: PSA,Total - Annual Screen 0.25 ng/mL (0.00-4.00)
== END ==
PROVIDERS: PCP Family Medicine; Referring Provider Urology; Visit Provider Urology
DX: Z12.5 Encounter for screening for malignant neoplasm of prostate (principal)
CPT/HCPCS: 36415; 84153; G0103

== ENCOUNTER → 2021-08-25 | Outpatient (CLI) | payer MEDICARE, BC, SELFPAY ==
[2021-08-25 12:26] LABS: Absolute Lymphocyte Count 1.93 X10^3/uL (0.83-4.51); Absolute Neutrophil Count 4.8 X10^3/uL (2.0-7.7); Basophil# 0.03 X10^3/uL; Basophil% 0.4 % (0-1); Eosinophil# 0.06 X10^3/uL; Eosinophils% 0.8 % (0-5); Hematocrit 40.2 % (40-54); Hemoglobin 13.5 g/dL (13.0-16.5); Lymphocyte # 1.93 X10^3/ul (0.83-4.51); Lymphocyte % 25.3 % (19-41); Mean Corp Hgb Conc 33.6 g/dL (32-36); Mean Corpuscular Hgb 32.8 pg (27.0-32.0); Mean Corpuscular Volume 97.8 fL (80-94); Mean Platelet Vol. 11.2 fl (6.2-12.0); Monocyte# 0.77 X10^3/uL; Monocyte% 10.1 % (0-10); NRBC Flagged by Analyzer 0 % (0-5); Neutrophil # 4.81 X10^3/uL (2.7-7.7); Neutrophil % 62.9 % (47-70); Platelet Count 190 K/mm3 (150-450); RBC Distribution Width CV 13.4 % (11.6-14.6); RBC Distribution Width SD 47.9 fl (35.1-43.9); Red Blood Count 4.11 M/mm3 (4.6-6.2); White Blood Count 7.6 K/mm3 (4.4-11.0)
[2021-08-25 12:39] LABS: Vitamin B12 216 pg/mL (211-911)
[2021-08-25 12:54] LABS: ALB/GLOB Ratio 1.1 RATIO (0.9-2.4); AST(SGOT) 16 U/L (15-37); Alanine Aminotransfer ALT/SGPT 31 U/L (16-61); Albumin, Serum 3.9 g/dL (3.2-5.0); Alkaline Phosphatase 87 U/L (45-117); Anion Gap 8 (5-15); BUN 24 mg/dL (7-18); BUN/Creat Ratio 19.2 RATIO (10-20); Chloride 103 mmol/L (98-107); Cholesterol 98 mg/dL (200); Creatinine, Serum 1.25 mg/dL (0.70-1.30); EST Glomerular Filtration Rate 61 mL/min (>60); Est Glom Filt Rate - Afr Amer 74 mL/min (>60); Globulin 3.7 g/dL (2.2-4.2); Glucose 185 mg/dL (74-106); High Density Lipoprotein 33 mg/dL; Potassium 4.8 mmol/L (3.5-5.1); Protein, Total 7.6 g/dL (6.4-8.2); Sodium Level 135 mmol/L (136-145); Thyroid Stim Hormone (TSH) 3.68 uIU/mL (0.358-3.74); Triglycerides 151 mg/dL; Uric Acid 5.6 mg/dL (3.5-7.2); Very Low Density Lipoprotein 30 mg/dL (5-40)
== END | disposition home or self-care (01) ==
LOC: MFPLAB 08:37
PROVIDERS: PCP Family Medicine; Visit Provider Family Medicine
DX: M10.9 Gout, unspecified (principal); E11.9 Type 2 diabetes mellitus without complications; Z12.5 Encounter for screening for malignant neoplasm of prostate; I25.2 Old myocardial infarction
CPT/HCPCS: 36415; 80053; 80061; 82607; 84443; 84550; 85025

== ENCOUNTER → 2021-11-21 | Outpatient (CLI) | payer MEDICARE, BC, SELFPAY ==
[2021-11-21 15:52] LABS: Absolute Lymphocyte Count 1.92 X10^3/uL (0.83-4.51); Absolute Neutrophil Count 4.1 X10^3/uL (2.0-7.7); Basophil# 0.02 X10^3/uL; Basophil% 0.3 % (0-1); Eosinophil# 0.06 X10^3/uL; Eosinophils% 0.9 % (0-5); Hematocrit 39.1 % (40-54); Hemoglobin 13.3 g/dL (13.0-16.5); Lymphocyte # 1.92 X10^3/ul (0.83-4.51); Lymphocyte % 28.1 % (19-41); Mean Platelet Vol. 11.3 fl (6.2-12.0); Monocyte# 0.68 X10^3/uL; Monocyte% 9.9 % (0-10); NRBC Flagged by Analyzer 0 % (0-5); Neutrophil # 4.13 X10^3/uL (2.7-7.7); Neutrophil % 60.4 % (47-70); Platelet Count 174 K/mm3 (150-450); RBC Distribution Width CV 13.2 % (11.6-14.6); RBC Distribution Width SD 48.8 fl (35.1-43.9); Red Blood Count 3.91 M/mm3 (4.6-6.2); White Blood Count 6.8 K/mm3 (4.4-11.0)
[2021-11-21 16:08] LABS: AST(SGOT) 15 U/L (15-37); Alanine Aminotransfer ALT/SGPT 25 U/L (16-61); Albumin, Serum 3.6 g/dL (3.2-5.0); Alkaline Phosphatase 72 U/L (45-117); Anion Gap 9 (5-15); BUN 21 mg/dL (7-18); BUN/Creat Ratio 18.1 RATIO (10-20); Calcium,Total 8.9 mg/dL (8.5-10.1); Chloride 108 mmol/L (98-107); Cholesterol 81 mg/dL (200); Creatinine, Serum 1.16 mg/dL (0.70-1.30); EST Glomerular Filtration Rate 66 mL/min (>60); Est Glom Filt Rate - Afr Amer 80 mL/min (>60); Globulin 3.7 g/dL (2.2-4.2); Glucose 154 mg/dL (74-106); High Density Lipoprotein 32 mg/dL; Potassium 4.1 mmol/L (3.5-5.1); Protein, Total 7.3 g/dL (6.4-8.2); Sodium Level 140 mmol/L (136-145); Thyroid Stim Hormone (TSH) 4.31 uIU/mL (0.358-3.74); Triglycerides 121 mg/dL; Uric Acid 5.5 mg/dL (3.5-7.2); Very Low Density Lipoprotein 24 mg/dL (5-40)
[2021-11-24 08:06] LABS: Vitamin B12 181 pg/mL (211-911)
[2021-11-26 08:52] LABS: T4 Free Direct 0.99 ng/dL (0.76-1.46)
== END | disposition home or self-care (01) ==
LOC: MFPLAB 08:06
PROVIDERS: PCP Family Medicine; Referring Provider Family Medicine; Visit Provider Family Medicine
DX: M10.9 Gout, unspecified (principal); I21.3 ST elevation (STEMI) myocardial infarction of unspecified site; E11.9 Type 2 diabetes mellitus without complications; Z12.5 Encounter for screening for malignant neoplasm of prostate
CPT/HCPCS: 36415; 80053; 80061; 82607; 84439; 84443; 84550; 85025

== ENCOUNTER → 2022-02-16 | Outpatient (CLI) | payer MEDICARE, BC, SELFPAY ==
[2022-02-16 10:46] LABS: T4 Free Direct 0.86 ng/dL (0.76-1.46); Thyroid Stim Hormone (TSH) 3.77 uIU/mL (0.358-3.74)
== END | disposition home or self-care (01) ==
LOC: MFPLAB 08:09
PROVIDERS: PCP Family Medicine; Referring Provider Family Medicine; Visit Provider Family Medicine
DX: E03.9 Hypothyroidism, unspecified (principal)
CPT/HCPCS: 36415; 84439; 84443

== ENCOUNTER → 2022-03-05 | Outpatient (CLI) | payer MEDICARE, BC, SELFPAY ==
[2022-03-05 10:06] LABS: PSA,Total - Annual Screen 0.32 ng/mL (0.00-4.00)
== END | disposition home or self-care (01) ==
LOC: LAB 08:39
PROVIDERS: PCP Family Medicine; Referring Provider Urology; Visit Provider Urology
DX: Z12.5 Encounter for screening for malignant neoplasm of prostate (principal)
CPT/HCPCS: 36415; 84153; G0103

== ENCOUNTER → 2022-05-11 | Outpatient (CLI) | payer MEDICARE, BC, SELFPAY ==
--- NOTE | 2022-05-11 12:32 | MRI_ITS ---
EXAM: MR LEFT UPPER EXTREMITY WITHOUT INTRAVENOUS CONTRAST, SHOULDER CLINICAL INDICATION: LT SHOULDER OSTEOARHTRITIS,PAIN, limited rom TECHNIQUE: Multiplanar and multisequence MR images of the left shoulder without intravenous contrast. This report was created using [employer] report Kwaab technology. COMPARISON: None. FINDINGS: TENDONS: SUPRASPINATUS: Full-thickness partial width tearing involving the majority of the supraspinatus tendon. The far anterior fibers and the far posterior fibers of the supraspinatus tendon remain intact. Failure is at the supraspinatus tendon footprint with retraction resulting in a gap of 1.3 cm. INFRASPINATUS: Unremarkable. Intact. SUBSCAPULARIS: Unremarkable. Intact. TERES MINOR: Unremarkable. Intact. BICEPS BRACHII, LONG HEAD: Intact long head of the biceps tendon. The extra-articular biceps tendon is in the bicipital groove. LIGAMENTS: GLENOHUMERAL: Unremarkable. Intact. MUSCLES: Unremarkable. No rotator cuff muscle atrophy. FLUID: Large amount of fluid in the subacromial/subdeltoid bursa. No significant glenohumeral joint effusion. CARTILAGE: Unremarkable. Articular cartilage intact. GLENOID LABRUM: No labral tearing. Normal variant sublabral hole or foramen is suspected to be present at the anterior superior aspect. BONES/JOINTS: Znkjydmk-ca-mhatiz hypertrophic changes of the acromioclavicular joint. Type I acromion with flat undersurface. The subacromial enthesophyte. No os acromiale. No fracture. No abnormal bone marrow signal. OTHER SOFT TISSUES: Unremarkable. No rotator interval edema. MRI/Upper Ext Joint Only(Routine) IMPRESSION: Full-thickness partial width tearing involving the majority of the supraspinatus tendon. Oqgikiat-uw-vtzssj hypertrophic changes of the acromioclavicular joint. Large amount of fluid in the subacromial/subdeltoid bursa with no significant glenohumeral joint effusion. Electronically Signed: Stefan Padilla MD at 22:03 EST ,
== END | disposition home or self-care (01) ==
LOC: MRI 12:01
PROVIDERS: PCP Family Medicine; Visit Provider Specialist
DX: M25.512 Pain in left shoulder (principal)
CPT/HCPCS: 73221

== ENCOUNTER → 2022-05-19 | Outpatient (CLI) | payer MEDICARE, BC, SELFPAY ==
[2022-05-19 10:28] LABS: Anion Gap 9 (5-15); BUN 16 mg/dL (7-18); BUN/Creat Ratio 13.3 RATIO (10-20); Calcium,Total 9.6 mg/dL (8.5-10.1); Chloride 104 mmol/L (98-107); Cholesterol 107 mg/dL (200); EST Glomerular Filtration Rate 64 mL/min (>60); Est Glom Filt Rate - Afr Amer 77 mL/min (>60); Glucose 138 mg/dL (74-106); High Density Lipoprotein 38 mg/dL; Potassium 4.7 mmol/L (3.5-5.1); Sodium Level 140 mmol/L (136-145); T4 Free Direct 0.89 ng/dL (0.76-1.46); Thyroid Stim Hormone (TSH) 3.75 uIU/mL (0.358-3.74); Triglycerides 144 mg/dL; Very Low Density Lipoprotein 29 mg/dL (5-40)
== END | disposition home or self-care (01) ==
LOC: MTLAB 08:21
PROVIDERS: PCP Family Medicine; Referring Provider Family Medicine; Visit Provider Family Medicine
DX: R79.89 Other specified abnormal findings of blood chemistry (principal); E11.59 Type 2 diabetes mellitus with other circulatory complications
CPT/HCPCS: 36415; 80048; 80061; 84439; 84443

== ENCOUNTER → 2022-08-24 | Outpatient (CLI) | payer MEDICARE, BC, SELFPAY ==
[2022-08-24 10:14] LABS: Anion Gap 1 (5-15); BUN 21 mg/dL (7-18); BUN/Creat Ratio 15.8 RATIO (10-20); Calcium,Total 9.5 mg/dL (8.5-10.1); Chloride 108 mmol/L (98-107); Cholesterol 89 mg/dL (200); Creatinine, Serum 1.33 mg/dL (0.70-1.30); EST Glomerular Filtration Rate 56 mL/min (>60); Est Glom Filt Rate - Afr Amer 68 mL/min (>60); Glucose 190 mg/dL (74-106); High Density Lipoprotein 34 mg/dL; Potassium 4.8 mmol/L (3.5-5.1); Sodium Level 135 mmol/L (136-145); T4 Free Direct 0.89 ng/dL (0.76-1.46); Thyroid Stim Hormone (TSH) 3.67 uIU/mL (0.358-3.74); Triglycerides 111 mg/dL; Very Low Density Lipoprotein 22 mg/dL (5-40)
== END | disposition home or self-care (01) ==
LOC: MFPLAB 08:43
PROVIDERS: PCP Family Medicine; Visit Provider Family Medicine
DX: R94.6 Abnormal results of thyroid function studies (principal); E11.69 Type 2 diabetes mellitus with other specified complication; E11.59 Type 2 diabetes mellitus with other circulatory complications; I10 Essential (primary) hypertension; E78.5 Hyperlipidemia, unspecified
CPT/HCPCS: 36415; 80048; 80061; 84439; 84443

== ENCOUNTER 2022-09-02 05:46 | Day surgery (SDC) | payer MEDICARE, BC, SELFPAY ==
--- NOTE | 2022-08-27 07:07 | EKG12_ITS ---
Test Reason : PRE OP Blood Pressure : / mmHG Vent. Rate : 061 BPM Atrial Rate : 061 BPM P-R Int : 176 ms QRS Dur : 090 ms QT Int : 406 ms P-R-T Axes : 039 -13 041 degrees QTc Int : 408 ms Normal sinus rhythm Nonspecific ST abnormality Abnormal ECG Confirmed by CM MICHAELS, MINNA ([id number]), publications editor DORA TAYLOR ([id number]) on 08/28/2022 8:15:22 AM Referred By: Andre Jones Confirmed By:MINNA PABON MD
[2022-08-27 08:14] LABS: Hematocrit 40.8 % (40-54); Hemoglobin 14.1 g/dL (13.0-16.5); Mean Corp Hgb Conc 34.6 g/dL (32-36); Mean Corpuscular Hgb 33.9 pg (27.0-32.0); Mean Corpuscular Volume 98.1 fL (80-94); Mean Platelet Vol. 10.9 fl (6.2-12.0); Platelet Count 191 K/mm3 (150-450); RBC Distribution Width CV 13.3 % (11.6-14.6); RBC Distribution Width SD 47.2 fl (35.1-43.9); Red Blood Count 4.16 M/mm3 (4.6-6.2)
[2022-08-27 09:26] LABS: Hemoglobin A1c 5.9 % (3.8-5.6)
[2022-09-02] VITALS (16 sets, daily range): BP systolic 116–160; BP diastolic 68–91; PULSE 58–88; RESP 12–20; TEMP 35.7–36.7; O2SAT 93–100; BMI 23.5
--- NOTE | 2022-09-02 06:15 | PCM.HP.BLA ---
History and Physical Date of Admission: 09/02/22 Chief Complaint: Update H&P Bilateral inguinal herniorrhaphy Tobacco Sampler Required: No Is patient in pain?: No Allergies No Known Allergies Allergy (Verified 08/27/22 07:36) Medications allopurinol 100 mg tablet 100 mg PO BID 08/27/13 [History Confirmed 08/27/22] aspirin 81 mg tablet,delayed release 81 mg PO DAILY 08/27/13 [History Confirmed 08/27/22] metformin 500 mg tablet,extended release 24 hr 1,000 mg PO BID 08/27/13 [History Confirmed 08/27/22] cholecalciferol (vitamin D3) 25 mcg (1,000 unit) tablet 25 mcg PO DAILY 11/28/19 [History Confirmed 08/27/22] glimepiride 1 mg tablet 1 mg PO DAILY 11/28/19 [History Confirmed 08/27/22] losartan 25 mg tablet 50 mg PO DAILY 11/28/19 [History Confirmed 08/27/22] atorvastatin 40 mg tablet 40 mg PO DAILY 07/16/22 [History Confirmed 08/27/22] coenzyme Q10 75 mg capsule (Ultra CoQ10) 75 mg PO DAILY 07/16/22 [History Confirmed 08/27/22] isosorbide mononitrate 60 mg tablet,extended release 24 hr 60 mg PO DAILY 07/16/22 [History Confirmed 08/27/22] metoprolol succinate 50 mg tablet,extended release 24 hr 50 mg PO DAILY 07/16/22 [History Confirmed 08/27/22] tamsulosin 0.4 mg capsule (Flomax) 0.4 mg PO DAILY #30 caps 07/16/22 [Rx Confirmed 08/27/22] PFSH Medical History?(Updated 08/27/22 @ 07:35 by Bushra Trevino) Bilateral inguinal hernia without obstruction or gangrene Cardiology follow-up encounter Constipation Diabetes mellitus Gout High cholesterol History of echocardiogram History of heart attack Hyperlipidemia Non-smoker STEMI (ST elevation myocardial infarction) Urinary retention Wears glasses Surgical History? H/O knee surgery History of cardiac catheterization Family History? Father DiabetesMother CVA (cerebral vascular accident) Social History?(Reviewed 08/27/22 @ 07:35 by Bushra Willoughby Smoking Status:? Never smoker HPI HPI Surgical H&P: Yes HPI: Patient is a 72 y/o M I am following for an update history and physical for an upcoming bilateral inguinal hernia repair. Patient denies any recent hospitalizations or illnesses. Patient is only on a daily aspirin. He denies any previous complications with anesthesia. Patient notes he had a myocardial infarction in 2020. Dr. Simon is his credit card associate. Patient denies any recent bowel habit changes. Patient's previous history per Dr. Jones: 72-year-old gentleman is referred by Dr. Adam Marie for surgical consultation regarding a possible left inguinal hernia and a written copy of my surgical consult recommendations will be returned to him.? The patient's most recent urologic visit was March 05, 2022.? Primary care physician Dr. Mina Haynes.? Patient remains very active.? He is still employed in [employer] business.? 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 He is having trouble with coughing standing straining with increased discomfort in the left groin.? He did have a CT scan of the abdomen dating back to 2013 which showed bilateral fat-containing inguinal hernias at that time. In 2020 he had a myocardial infarction and had a coronary catheterization locally and then he was transferred to [facility] where he stated he spent 10 days.? He states he was evaluated there and was instructed that there was no endovascular approach or open coronary approach that could be utilized to assist with his disease.? The patient has taken a very proactive stance.? He walks daily eats a heart healthy diet keeps his type 2 diabetes under good control.? Apparently leading up to that event he was only on allopurinol and metformin.? Subsequent to that event he was initiated on low-dose aspirin therapy and atorvastatin and vitamin D and coenzyme Q 10 and glimepiride and isosorbide mononitrate ER and losartan and metoprolol. He states he is asymptomatic.? He is able to go up a flight of stairs.? He is able to do his exercise without problem.? No chest pain shortness of breath or palpitation. His credit card associate is Dr. Simon at [facility]. The patient states that he is up-to-date with colonoscopy screening per Dr. Javan Bryan.? The patient states that over the last 3 months he has had some increased problems with constipation. The patient does have urinary retention with nocturia once nightly.? He states that he has annual follow-up with but also states that he has not had elevation of his PSA or prostate cancer ROS General General: No weight change, appetite, fatigue, colon cancer, breast cancer or weakness HEENT HEENT: No difficulty swallowing, eye injury, eye surgery, swollen glands or hoarseness Endo Endocrine: Yes diabetes mellitus; No thyroid disease, thyroid cancer, Hair loss, heat intolerance or cold intolerance Skin Skin: No rash or changing moles Breast Breast: No left breast lump, right breast lump, nipple discharge, breast pain, abnormal mammogram, abnormal US or breast enlargement Musc Musculoskeletal: Yes gout; No back problems, arthritis, rheumatoid arthritis or joint pain Cardio Cardiovascular: Yes heart attack; No murmur, pacemaker, heart disease, atrial fibrillation, high blood pressure, heart stent, palpitations, shortness of breat with exertion or chest pain Psych Psychiatric: No depression, anxiety or hearing voices Resp Respiratory: No shortness of breath, No sleep apnea, No cough, No COPD, No asthma, No emphysema and No wheezing Gastro Gastrointestinal: No abdominal pain, No nausea or vomiting, No diarrhea, No constipation, No blood in stool, No acid reflux, No hemorrhoids, No ulcers, No gallbladder problem and No black,tarry stools Kedar Hematologic: Yes blood thinners, No blood disorders, No bleeding, No anemia and No blood clots Neuro Neurologic: No system reviewed and no additional complaints, except as documented, No as per HPI, No abnormal gait, No abnormal hearing, No abnormal movements, No abnormal speech, No behavioral changes, No burning sensations, No confusion, No convulsions, No disequilibrium, No dizziness, No localized weakness, No frequent falls, No headache(s), No lack of coordination, No loss of vision, No memory loss, No numbness, No other visual disturbances, No radicular pain, No restless legs, No sensory deficit, No syncope, No tingling, No tremor(s), No weakness and No other Exam Const General: cooperative, healthy appearing, comfortable and no acute distress [facility] Head: normal to inspection Eyes General: appearance normal, both eyes and all related structures Neck Neck: normal visual inspection Neck mass: No Resp Effort & Inspection: normal respiratory effort Auscultation: clear to auscultation bilaterally Cardio Rate: regular rate Rhythm: regular rhythm GI Inspection: normal to inspection Palpation: hernia (bilateral inguinal hernias) Musc Cervical Spine: normal cervical lordosis Skin General: no rashes or lesions noted Neuro General: no focal motor deficits Extrem General: normal to inspection Psych Appearance: grossly normal Affect: normal affect Assessment and Plan Assessment and Plan (1) Bilateral inguinal hernia without obstruction or gangrene: ?Status:?Acute ?Plan: Dr. Jones will plan to perform a laparoscopic bilateral inguinal hernia repair with mesh. Procedure details, risks and benefits have been reviewed. Patient has had the opportunity to ask and have questions answered. Patient verbally understands and agrees with the plan. Patient may continue to take his daily aspirin until the day of the procedure. He will continue the Flomax and Miralax to assist with urinary flow and bowel function I have examined the patient and the H&P has been reviewed. There are no clinical changes since date of exam. Andre Jones M.D., F.A.C.S.
--- NOTE | 2022-09-02 06:17 | DCINST_ITS ---
Discharge Instructions Procedure General Surgery Diet Discharge Diet: Light diet - advance as tolerated (if you have questions about your diet instructions, please talk to you doctor.) Activity Discharge Activity: May Not Drive (for 3-5 days or while taking narcotic pain medicine.) May shower in (days): 1 Lifting Restrictions: 10 pounds Dressing / Incision Call your doctor if your incision/area has: Continuous Slow Oozing, Sudden Increased Bleeding, Increased Pain/ Swelling, Increased Redness and Foul Smelling Discharge Call your doctor if you observe: Fever of 101 or Higher Suture Line Care: Avoid Pulling/Pushing and Avoid Pinching/Bending Additional Dressing/Incision Instructions:: Change or remove dressing in 4 days. Leave steri-strips in place for 1 week. Follow Up Care Please Follow Up With: Andre Jones MD When: Call [phone] to make an appointment to be seen in about 10 days. Test Results: Test results from this visit will be discussed in further detail at your follow- up appointment, if applicable. Discharge Plan Admission Attending Provider: Andre Jones Primary Care Provider: Jose Haynes Discharge Orders/Prescriptions Prescriptions: No Action isosorbide mononitrate 60 mg tablet extended release 24 hr 60 mg PO DAILY Label Comments: TAKE 1 TABLET BY MOUTH ONCE DAILY atorvastatin 40 mg tablet 40 mg PO DAILY metoprolol succinate 50 mg tablet extended release 24 hr 50 mg PO DAILY Label Comments: TAKE 1 TABLET BY MOUTH ONCE DAILY Ultra CoQ10 75 mg capsule 75 mg PO DAILY tamsulosin [Flomax] 0.4 mg capsule 0.4 mg PO DAILY Qty: 30 0RF Rx Instructions: Start taking 2 weeks prior to surgery allopurinol 100 MG tablet 100 mg PO BID aspirin 81 MG tablet 81 mg PO DAILY metformin 500 MG tablet 1,000 mg PO BID glimepiride 1 MG tablet 1 mg PO DAILY losartan 25 MG tablet 50 mg PO DAILY cholecalciferol (vitamin D3) 25 MCG tablet 25 mcg PO DAILY Other Ambulatory Orders: 12 Lead EKG (Routine) Timeframe: [id number] Location: None Selected Ordered By: Dr. Andre Jones Referrals / Follow Up: Jose Haynes MD [Primary Care Provider] - Disposition Disposition (needs filled in before D/C Order can be placed): Home, Self Care
[2022-09-02] MEDS: Lactated Ringers 1,000 ML 15 ML IV ×3 (06:35→11:42)
[2022-09-02 07:10] LABS: Bedside Glucose 170 mg/dL (74-106)
[2022-09-02] MEDS: Cefazolin 2 GM in 0.9% Normal Saline 100 ML IV (07:22)
[2022-09-02] MEDS: Bupivacaine 0.25% 30 ML Vial (08:40)
--- NOTE | 2022-09-02 08:43 | PCM.OPRPT ---
Report of Operation Date of Procedure: 09/02/22 Pre-Operative Diagnosis: Bilateral inguinal hernias Post-Operative Diagnosis: Indirect left inguinal hernia with cord lipoma Indirect right inguinal hernia Umbilical hernia Surgery/Procedure Performed:: Laparoscopic bilateral inguinal herniorrhaphies with Bard 3D max large mesh, sutured umbilical hernia repair Large right Bard 3D max mesh Lot number [id number], reference [id number], expiry date 02/27/2027 Large left Bard 3D max mesh Lot number [id number], reference [id number], expiry date 02/27/2027 Secure strap Lot number [id number], expiry date September 2023 Description of Surgical Findings:: Timeout and informed consent was obtained. 72-year-old gentleman was taken to the operating placed on the table underwent general endotracheal intubation esthesia Ancef 2 g were given intravenously 1% lidocaine mixed 50-50 with 0.5% Marcaine was used as a local anesthetic. Throughout the procedure a total of 30 cc was used. Skin sites were Rylee size. An infraumbilical vertical incision was created and so doing an umbilical hernia with preperitoneal fatty tissue was encountered this was dissected free holding sutures of 0 Vicryl placed varies needle inserted saline drop test performed the abdomen was insufflated with CO2 to a pressure of 10 mmHg pressure. 12 mm trocar inserted. 10 mm laparoscope inserted. No concern trocar injuries. Under direct visualization 5 mm ports were placed on the right left lower quadrants. Bilateral ilioinguinal nerve blocks were performed with the local under laparoscopic visualization. The peritoneum superior and lateral to the internal ring on the right was incised carried immediately the peritoneum was completely dissected free a cord lipoma on the right was identified this was completely dissected free and inverted. Where needed hemostasis attained with Hem-o-kiesha clips. I then incised the peritoneum on the left there was a sizable indirect sac on the left with I had to carefully and tediously dissected free and again hemostasis obtained with Hem-o-kiesha clips were indicated. Having now both groins clearly visualized with the direct indirect and femoral areas dissected free I placed a large Bard 3D max mesh on the right and then a large left Bard 3D max mesh on the left. These met in the midline with slight overlapping right at the pubic tubercle. I secured them laterally superiorly and medially with secure strap. Excellent positioning and complete obliteration to the defects was achieved. The peritoneum was then approximated to itself using secure strap and Hem-o-kiesha clips completely obliterating access to the mesh. Good securement was felt to been achieved. The abdomen was allowed to deflate of the CO2. The small umbilical hernia now measuring approximately a centimeter to a centimeter and a half in diameter was closed with simple sutures of 0 Nurolon. Skin edges were approximated opted for Monocryl subdermal stitches. Steri-Strips Telfa OpSite dressings applied. Sponge and instrument and needle counts were reported the surgeon to be correct. Specimens none. Drains none. Blood loss minimal. The patient was taken to the recovery area in satisfied condition without apparent complication Andre Jones M.D., F.A.C.S. Surgeon: Andre Jones Type of Anesthesia: General and Local Anesthesiologist: Samreen Martin
[2022-09-02 09:46] LABS: Bedside Glucose 169 mg/dL (74-106)
[2022-09-02 09:47] LABS: Troponin-I HS 6 pg/mL (3.0-78.0)
--- NOTE | 2022-09-02 10:46 | SUR.PHASEI ---
DR. GUERRA VIEWED PATIENT'S EKG AND TROPONIN AND STATED NO CHANGES IN EKG. ALSO TOLD THIS NURSE NITROPASTED CAN BE REMOVED.
[2022-09-02 11:33] LABS: Troponin-I HS 6 pg/mL (3.0-78.0)
--- NOTE | 2022-09-02 13:44 | SUR.PHASEII ---
PATIENT IS DRESSED AND HAS GOT UP TO THE RESTROOM 4 TIMES. HE HAS URINATED SMALL AMOUNTS HE SAID. HE REPORTS NO PAIN OR CARDIAC SYMPTOMS. NORMAL SINUS RHYTHYM ON THE MONITOR.
[2022-09-02] MEDS: Tamsulosin HCl 0.4 MG Capsule PO (14:56)
[2022-09-02 15:10] LABS: Bedside Glucose 193 mg/dL (74-106)
[2022-09-02] MEDS: Glimepiride 1 MG Tablet PO (15:47)
--- NOTE | 2022-09-02 16:26 | SUR.PHASEII ---
PATIENT DENIES PAIN, SHORTNESS OF BREATH OR NAUSEA. DENIES NEED FOR ANYTHING MORE TO DRINK OR EAT. WANTS TO GO HOME.
== END 2022-09-02 17:04 | disposition home or self-care (01) ==
LOC: SDC 05:46 → AC 05:47
PROVIDERS: Anesthesiology; PCP Family Medicine; Referring Provider Surgery; Visit Provider Surgery
PROC: (CPT 49650; principal; 2022-09-02 07:10)
DX: K40.20 Bilateral inguinal hernia, without obstruction or gangrene, not specified as recurrent (principal); E11.9 Type 2 diabetes mellitus without complications; K42.9 Umbilical hernia without obstruction or gangrene; I25.2 Old myocardial infarction; E78.00 Pure hypercholesterolemia, unspecified; Z79.84 Long term (current) use of oral hypoglycemic drugs; Z79.899 Other long term (current) drug therapy; Z79.82 Long term (current) use of aspirin
CPT/HCPCS: 49650; 49591; 00840; 36415; 82962; 83036; 84484; 85027; 93005; J7120; C1781; J2405

== ENCOUNTER → 2023-03-10 | Outpatient (CLI) | payer MEDICARE, BC, SELFPAY ==
[2023-03-10 09:51] LABS: PSA,Total - Annual Screen 0.34 ng/mL (0.00-4.00)
== END | disposition home or self-care (01) ==
LOC: LAB 08:56
PROVIDERS: PCP Family Medicine; Referring Provider Urology; Visit Provider Urology
DX: Z12.5 Encounter for screening for malignant neoplasm of prostate (principal)
CPT/HCPCS: 36415; 84153; G0103

== ENCOUNTER → 2023-04-07 | Outpatient (CLI) | payer MEDICARE, BC, SELFPAY ==
[2023-04-07 11:35] LABS: Anion Gap 5 (5-15); BUN 22 mg/dL (7-18); BUN/Creat Ratio 16.3 RATIO (10-20); Calcium,Total 9.9 mg/dL (8.5-10.1); Chloride 107 mmol/L (98-107); Creatinine, Serum 1.35 mg/dL (0.70-1.30); EST Glomerular Filtration Rate 55 mL/min (>60); Est Glom Filt Rate - Afr Amer 67 mL/min (>60); Glucose 150 mg/dL (74-106); Potassium 4.7 mmol/L (3.5-5.1); Sodium Level 136 mmol/L (136-145); Thyroid Stim Hormone (TSH) 4.57 uIU/mL (0.358-3.74)
== END | disposition home or self-care (01) ==
LOC: MFPLAB 08:45
PROVIDERS: PCP Family Medicine; Visit Provider Family Medicine
DX: E11.65 Type 2 diabetes mellitus with hyperglycemia (principal); Z12.5 Encounter for screening for malignant neoplasm of prostate
CPT/HCPCS: 36415; 80048; 84443

== ENCOUNTER → 2023-11-25 | Outpatient (CLI) | payer MEDICARE, BC, SELFPAY ==
[2023-11-25 12:22] LABS: Absolute Lymphocyte Count 1.37 X10^3/uL (0.83-4.51); Basophil# 0.04 X10^3/uL; Basophil% 0.6 % (0-1); Eosinophil# 0.06 X10^3/uL; Hematocrit 37.2 % (40-54); Hemoglobin 12.6 g/dL (13.0-16.5); Lymphocyte # 1.37 X10^3/ul (0.83-4.51); Lymphocyte % 21.7 % (19-41); Mean Corp Hgb Conc 33.9 g/dL (32-36); Mean Corpuscular Hgb 33.4 pg (27.0-32.0); Mean Corpuscular Volume 98.7 fL (80-94); Monocyte# 0.77 X10^3/uL; Monocyte% 12.2 % (0-10); NRBC Flagged by Analyzer 0 % (0-5); Neutrophil # 4.03 X10^3/uL (2.7-7.7); Platelet Count 217 K/mm3 (150-450); RBC Distribution Width CV 14.2 % (11.6-14.6); Red Blood Count 3.77 M/mm3 (4.6-6.2); White Blood Count 6.3 K/mm3 (4.4-11.0)
[2023-11-25 12:46] LABS: Hemoglobin A1c 7.1 % (3.8-5.6)
[2023-11-25 12:55] LABS: Albumin, Serum 3.3 g/dL (3.2-5.0); Anion Gap 6 (5-15); BUN 15 mg/dL (7-18); BUN/Creat Ratio 13.9 RATIO (10-20); Calcium,Total 9.4 mg/dL (8.5-10.1); Chloride 112 mmol/L (98-107); Creatinine, Serum 1.08 mg/dL (0.70-1.30); EST Glomerular Filtration Rate 72 mL/min (>60); Est Glom Filt Rate - Afr Amer 87 mL/min (>60); Glucose 186 mg/dL (74-106); Sodium Level 141 mmol/L (136-145)
== END | disposition home or self-care (01) ==
PROVIDERS: PCP Family Medicine; Referring Provider Specialist; Visit Provider Specialist
DX: Z01.818 Encounter for other preprocedural examination (principal); E11.9 Type 2 diabetes mellitus without complications
CPT/HCPCS: 36415; 80048; 82040; 83036; 85025; 87077; 87081

== ENCOUNTER → 2023-12-27 | Outpatient (CLI) | payer MEDICARE, BC, SELFPAY ==
[2023-12-27 10:22] LABS: Absolute Lymphocyte Count 1.53 X10^3/uL (0.83-4.51); Absolute Neutrophil Count 7.4 X10^3/uL (2.0-7.7); Basophil# 0.03 X10^3/uL; Basophil% 0.3 % (0-1); Eosinophil# 0.06 X10^3/uL; Eosinophils% 0.6 % (0-5); Hematocrit 34.2 % (40-54); Hemoglobin 11.2 g/dL (13.0-16.5); Lymphocyte # 1.53 X10^3/ul (0.83-4.51); Lymphocyte % 15.7 % (19-41); Mean Corp Hgb Conc 32.7 g/dL (32-36); Mean Corpuscular Hgb 33.3 pg (27.0-32.0); Mean Corpuscular Volume 101.8 fL (80-94); Mean Platelet Vol. 10.4 fl (6.2-12.0); Monocyte# 0.71 X10^3/uL; Monocyte% 7.3 % (0-10); NRBC Flagged by Analyzer 0 % (0-5); Neutrophil % 75.7 % (47-70); Platelet Count 206 K/mm3 (150-450); RBC Distribution Width SD 48.6 fl (35.1-43.9); Red Blood Count 3.36 M/mm3 (4.6-6.2); White Blood Count 9.8 K/mm3 (4.4-11.0)
[2023-12-27 12:09] LABS: Albumin, Serum 3.6 g/dL (3.2-5.0); Anion Gap 10 (5-15); BUN 47 mg/dL (7-18); BUN/Creat Ratio 38.2 RATIO (10-20); Calcium,Total 9.5 mg/dL (8.5-10.1); Chloride 105 mmol/L (98-107); Creatinine, Serum 1.23 mg/dL (0.70-1.30); EST Glomerular Filtration Rate 62 mL/min (>60); Est Glom Filt Rate - Afr Amer 74 mL/min (>60); Glucose 195 mg/dL (74-106); Potassium 5.1 mmol/L (3.5-5.1); Sodium Level 135 mmol/L (136-145)
[2023-12-27 13:16] LABS: Hemoglobin A1c 5.9 % (3.8-5.6)
== END | disposition home or self-care (01) ==
LOC: MTLAB 08:54
PROVIDERS: PCP Family Medicine; Referring Provider Specialist; Visit Provider Specialist
DX: Z01.818 Encounter for other preprocedural examination (principal); E11.9 Type 2 diabetes mellitus without complications
CPT/HCPCS: 36415; 80048; 82040; 83036; 85025

== ENCOUNTER → 2024-03-13 | Outpatient (CLI) | payer MEDICARE, BC, SELFPAY ==
[2024-03-13 09:14] LABS: PSA,Total - Annual Screen 0.37 ng/mL (0.00-4.00)
== END | disposition home or self-care (01) ==
LOC: OLS.ABSOLU 08:12
PROVIDERS: PCP Family Medicine; Referring Provider Urology; Visit Provider Urology
DX: Z12.5 Encounter for screening for malignant neoplasm of prostate (principal)
CPT/HCPCS: 36415; 84153; G0103

== ENCOUNTER → 2024-10-31 | Outpatient (CLI) | payer MEDICARE, BC, SELFPAY ==
--- NOTE | 2024-10-31 10:00 | RAD_ITS ---
PROCEDURE: CERV SPINE OBL/FLEX/EXT COMP 10/31/2024 REASON FOR EXAM: STRAIN OF OTHER MUSCLES, FASCIA AND TENDONS AT SHOULDER AND UPPER TECHNIQUE: CERV SPINE OBL/FLEX/EXT COMP COMPARISON: No FINDINGS: Mild and diffuse facet arthritis. At C5-6, there is moderate disc space narrowing and anterior osteophyte formation. At C6-7 there is mild disc space narrowing and anterior osteophyte formation. No abnormal motion with flexion and extension. There is predominantly right-sided mild/moderate multilevel exit foraminal narrowing. Mild cervicothoracic scoliosis. Bilateral carotid artery calcifications. No acute bone or soft tissue pathology. RAD/Cerv Spine Obl/Flex/Ext Comp IMPRESSION: Cervical spine scoliosis and degeneration Disclaimer: Reading Location: [place] [id number]
[2024-10-31 13:51] LABS: AST(SGOT) 23 U/L (<=37); Alanine Aminotransfer ALT/SGPT 21 U/L (<=46); Albumin, Serum 4.5 g/dL (3.4-4.8); Alkaline Phosphatase 73 U/L (40-129); Anion Gap 15 (5-15); BUN 19 mg/dL (4-19); BUN/Creat Ratio 15.8 RATIO (10-20); Calcium,Total 10.2 mg/dL (7.6-11.0); Carbon Dioxide 20.1 mmol/L (21.0-32.0); Chloride 102 mmol/L (98-108); Cholesterol 111 mg/dL (<=200); Globulin 3.3 g/dL (2.2-4.2); Glucose 153 mg/dL (70-99); Low Density Lipoprotein Calc. 28 mg/dL; Potassium 4.5 mmol/L (3.3-5.1); Triglycerides 243 mg/dL; Very Low Density Lipoprotein 49 mg/dL (5-40); cholesterol:hdl ratio screen 3.24
== END | disposition home or self-care (01) ==
PROVIDERS: PCP Family Medicine; Referring Provider Family Medicine; Visit Provider Family Medicine
DX: S46.819A Strain of other muscles, fascia and tendons at shoulder and upper arm level, unspecified arm, initial encounter (principal); E11.65 Type 2 diabetes mellitus with hyperglycemia; Z12.5 Encounter for screening for malignant neoplasm of prostate
CPT/HCPCS: 36415; 72052; 80053; 80061; 84403; 84443

== ENCOUNTER 2025-01-15 10:56 | Emergency (ER) | payer MEDICARE, BC, SELFPAY ==
[2025-01-15] VITALS (7 sets, daily range): BP systolic 128–180; BP diastolic 38–88; PULSE 59–80; RESP 16–22; TEMP 36.6–36.7; O2SAT 98–100; BMI 24.8
--- NOTE | 2025-01-15 11:28 | EKG12_ITS ---
Test Reason : Blood Pressure : */* mmHG Vent. Rate : 59 BPM Atrial Rate : 59 BPM P-R Int : 174 ms QRS Dur : 98 ms QT Int : 418 ms P-R-T Axes : 20 -22 29 degrees QTcB Int : 413 ms Sinus bradycardia Nonspecific ST abnormality Abnormal ECG Confirmed by Erik Gilmore ([id number]), manager editorial DORA TAYLOR ([id number]) on 01/16/2025 11:56:04 AM Referred By: Confirmed By: Erik Gilmore
--- NOTE | 2025-01-15 11:30 | RAD_ITS ---
PROCEDURE: CHEST 1 VIEW (PORTABLE) 01/15/2025 REASON FOR EXAM: SYNCOPE TECHNIQUE: Frontal view of the chest. COMPARISON: November 23, 2020 FINDINGS: Heart size is upper normal. Central vascularity appears normal. There is no focal infiltrate or consolidation. There is no pneumothorax or effusion. There is no acute bony abnormality. Aortic calcifications are noted. RAD/Chest 1 View (Portable) IMPRESSION: No acute process is identified in the chest. Reading Location: [facility]
[2025-01-15 11:39] LABS: Hematocrit 39.7 % (40-54); Hemoglobin 13.8 g/dL (13.0-16.5); Immature Granulocytes Count 0.050 X10^3/uL (0.0-0.0); Mean Corp Hgb Conc 34.8 g/dL (32-36); Mean Corpuscular Volume 97.3 fL (80-94); Mean Platelet Vol. 10.7 fl (6.2-12.0); NRBC Flagged by Analyzer 0 % (0-5); Platelet Count 190 K/mm3 (150-450); RBC Distribution Width CV 13.9 % (11.6-14.6); RBC Distribution Width SD 49.7 fl (35.1-43.9); Red Blood Count 4.08 M/mm3 (4.6-6.2); White Blood Count 8.8 K/mm3 (4.4-11.0)
[2025-01-15 11:57] LABS: Troponin T High Sensitivity 21 ng/L (<=22)
[2025-01-15 11:59] LABS: Anion Gap 17 (5-15); BUN 17 mg/dL (4-19); BUN/Creat Ratio 11.1 RATIO (10-20); Calcium,Total 10.1 mg/dL (7.6-11.0); Carbon Dioxide 19.7 mmol/L (21.0-32.0); Chloride 100 mmol/L (98-108); Estimated Creatinine Clearance 46.58 ml/min (50-250); Glucose 213 mg/dL (70-99); Potassium 4.4 mmol/L (3.3-5.1)
[2025-01-15 12:03] LABS: Mucous, Urine 0 SEEN /hpf (<or=2+); Red Blood Cells-Urine 0 SEEN /hpf (0-5); Squamous Epithelial Cells - UA 0 SEEN /hpf (0-5)
[2025-01-15 12:05] LABS: Color, Urine Yellow (Yellow); Glucose, Dipstick Normal (Normal); Ketone-Dipstick Negative (Negative); Leukocyte Esterase-Dipstick Negative /ul (Negative); Nitrite-Dipstick Negative (Negative); Occult Blood-Urine Negative /ul (Negative); Protein-Dipstick 30 mg/dl (Negative); Specific Gravity, Urine 1.015 (1.002-1.030); Urine Bilirubin Dipstick Negative (Negative)
--- NOTE | 2025-01-15 12:05 | EDS_ITS ---
HPI History of Present Illness Chief Complaint: Syncope Informant: patient Narrative Narrative: Patient is a 74-year-old male with history of coronary artery disease, hyperlipidemia, diabetes mellitus and reports multivessel heart disease (has not received a stent or CABG in the past) presenting for syncopal episode. 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 He states he felt fine when he woke up this morning. He showed up to the main entrance and felt like he was going to pass out. He was lowered to the ground by a bystander and then did become unconscious. Rapid response was called. When nursing staff arrived they state he was diaphoretic and pale. He notes he since feels like he is back to normal. He does note that at beginning this month he was on a cruise to [place] and after the cruise they drove around [place] for a bit. He notes symptoms and he was having some pain in the right neck that radiates to his shoulder blade that he has been dealing with and he also got a cold while traveling and has been having some nasal congestion. He has been taking ibuprofen for his neck pain. Been taking [id number] medications for the congestion. No other complaints or concerns at this time. Denies any chest pain or shortness of breath. Denies any significant cough. Denies any swelling of his legs. Denies history of DVT or PE. Denies any black or blood in his stool. No other complaints or concerns at this time. Follows with cardiology in [place]. Patient underwent cardiac catheterization for concern of ACS on 11/23/2020. STEMI alert at that time was called. He was found to have moderate arthrosclerosis large dominant RCA that is very tortuous and calcified as well as diffuse arthrosclerosis involving the entire LAD as well as multiple segmental lesions of the left circumflex. Because of complex coronary artery an atomy was treated medically and transferred to [facility] for concern of needing CABG. Patient ultimately did not receive CABG. [facility] Medical History Wears glasses High cholesterol Non-smoker History of echocardiogram Cardiology follow-up encounter History of heart attack Urinary retention Bilateral inguinal hernia without obstruction or gangrene Constipation Hyperlipidemia STEMI (ST elevation myocardial infarction) Diabetes mellitus Gout Home Medications ?Medication ?Instructions ?Recorded ?Last Taken ?Type allopurinol 100 mg tablet 100 mg PO BID 08/27/1308/27 History aspirin 81 mg tablet,delayed 81 mg PO DAILY 08/27/13 0 08/27/13 History release cholecalciferol (vitamin D3) 25 25 mcg PO DAILY Unknown History mcg (1,000 unit) tablet glimepiride 1 mg tablet 1 mg PO DAILY 11/28/19 Unkno wn History losartan 25 mg tablet 50 mg PO DAILY 11/28/19 05/0 07/23 History atorvastatin 40 mg tablet 40 mg PO DAILY 07/16/22 Unkn own History coenzyme Q10 75 mg capsule (Ultra 75 mg PO DAILY 07/16 Unknown History CoQ10) isosorbide mononitrate 60 mg 60 mg PO DAILY 07/16/22 0 09/02/22 History tablet,extended release 24 hr metoprolol succinate 50 mg 50 mg PO DAILY 07/16/22 Unk nown History tablet,extended release 24 hr metformin 1,000 mg tablet 1,000 mg PO BID 01/15/25 Unk nown History Allergy/AdvReac Type Severity Reaction Status Date / Time No Known Allergies Allergy Verified 10/15/22 07:46 Family History Father Diabetes Mother CVA (cerebral vascular accident) Surgical History History of bilateral inguinal hernia repair History of cardiac catheterization H/O knee surgery Social History Smoking Status: Never smoker ROS ROS ED Constitutional Constitutional ED: Reports other Details: syncope ; Denies chills or fever(s) Cardiovascular Cardiovascular: Denies chest pain Respiratory/Chest Respiratory/Chest: Denies cough Gastrointestinal Gastrointestinal: Denies nausea or vomiting Musculoskeletal Musculoskeletal: Reports neck pain; Denies arthralgias, back pain or myalgias Neurologic Neurologic: Denies paresthesias or weakness Hematologic/Lymphatic Hematologic/Lymphatic: Denies easy bleeding or easy bruising EXAM Physical Exam Const Vital Signs: 01/15/25 10:57 01/15/25 11:01 01/15/25 11:56 Temperature 98.1 F Temperature Source Temporal Pulse Rate 59 L 80 Pulse Rate [Lying] Pulse Rate [Sitting (for 1 minute prior to obtaining)] Pulse Rate [Standing (for 1 minute prior to obtaining)] Respiratory Rate 22 H 16 Respiratory Effort Normal Respiratory Pattern Normal Blood Pressure 146/71 H 128/80 H Blood Pressure [Lying] Blood Pressure [Sitting (for 1 minute prior to obtaining)] Blood Pressure [Standing (for 1 minute prior to obtaining)] Blood Pressure Mean 96 96 Blood Pressure Mean [Lying] Blood Pressure Mean [Sitting (for 1 minute prior to obtaining)] Blood Pressure Mean [Standing (for 1 minute prior to obtaining)] Pulse Ox 98 98 Oxygen Delivery Method Room Air 01/15/25 12:00 01/15/25 13:00 01/15/25 14:00 Temperature 97.8 F Temperature Source Oral Pulse Rate 60 70 68 Pulse Rate [Lying] Pulse Rate [Sitting (for 1 minute prior to obtaining)] Pulse Rate [Standing (for 1 minute prior to obtaining)] Respiratory Rate 17 20 H 19 H Respiratory Effort Respiratory Pattern Blood Pressure 138/69 H 150/38 H 149/86 H Blood Pressure [Lying] Blood Pressure [Sitting (for 1 minute prior to obtaining)] Blood Pressure [Standing (for 1 minute prior to obtaining)] Blood Pressure Mean 92 75 107 Blood Pressure Mean [Lying] Blood Pressure Mean [Sitting (for 1 minute prior to obtaining)] Blood Pressure Mean [Standing (for 1 minute prior to obtaining)] Pulse Ox 98 98 Oxygen Delivery Method Room Air Room Air 01/15/25 14:38 Temperature Temperature Source Pulse Rate Pulse Rate [Lying] 69 Pulse Rate [Sitting (for 1 minute prior to obtaining)] 72 Pulse Rate [Standing (for 1 minute prior to obtaining)] 72 Respiratory Rate Respiratory Effort Respiratory Pattern Blood Pressure Blood Pressure [Lying] 155/84 H Blood Pressure [Sitting (for 1 minute prior to obtaining)] 180/81 H Blood Pressure [Standing (for 1 minute prior to obtaining)] 156/77 H Blood Pressure Mean Blood Pressure Mean [Lying] 107 Blood Pressure Mean [Sitting (for 1 minute prior to obtaining)] 114 Blood Pressure Mean [Standing (for 1 minute prior to obtaining)] 103 Pulse Ox Oxygen Delivery Method Positive well nourished and well developed General Appearance ED: well developed and NAD HEENT Reports moist mucous membranes Neck supple and no JVD Chest Wall inspection of chest normal and palpation of chest normal Resp normal respiratory effort and clear to auscultation bilaterally Cardio regular rate, regular rhythm and no murmurs GI normal to inspection, nondistended, normoactive bowel sounds and non-tender Back/Spine Back/Spine Narrative: Right trapezius tenderness palpation and spasm. No midline tenderness. Extremity normal to inspection Neuro oriented x3 Sensorium / Orientation: alert Motor Exam: Negative for general weakness Psych mental status grossly normal Skin no rashes or lesions noted and no wounds MDM MDM MDM Narrative Medical decision making narrative: Patient evaluated after syncopal episode. He did have a prodrome of feeling lightheaded. No prior history of syncope. Differential clues not limited to arrhythmia, ACS, pulmonary emboli (has had recent travel but is otherwise low risk per Wells criteria), electrolyte derangement, symptomatic anemia and hypovolemia. Workup including EKG, delta high-sensitivity troponin, CBC, BMP and D-dimer is obtained. His workup is largely unremarkable. His bicarb is mildly low at 19.7 his creatinine is mildly above his baseline at 1.48. He does have 25-50 casts in his urine but no ketones. Suggest he does have a component of dehydration is given a liter of IV fluids. His D-dimer is elevated 2.09 and a CTA of the chest was added on. This does not show any acute process specifically no PE. Chest x-ray initially obtained reviewed by myself as radiology does not show any acute process. Patient has orthostatics after IV fluids which are negative. He is asymptomatic the emergency room. He does not have any associated chest pain. He is comfortable going home. 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 Counseled to call them for follow-up as he might require event monitoring/Holter monitoring and further outpatient workup especially given his cardiac history. Given return precautions to the ER. He verbalized agreement to this plan. Discharged home in stable and improved condition. Lab Data Attestation: I reviewed the patient's lab results. Labs: Laboratory Results - last 24 hr 01/15/25 01/15/25 01/15/25 11:10 11:59 12:07 WBC 8.8 RBC 4.08 L Hgb 13.8 Hct 39.7 L MCV 97.3 H MCH 33.8 H MCHC 34.8 RDW Std Deviation 49.7 H RDW Coeff of Philippe 13.9 Plt Count 190 MPV 10.7 Immature Gran % (Auto) 0.600 Neut % (Auto) 64.1 Lymph % (Auto) 19.5 [place] % (Auto) 14.4 H Eos % (Auto) 0.9 Baso % (Auto) 0.5 Absolute Neuts (auto) 5.7 Absolute Lymphs (auto) 1.72 Nucleated RBC % 0 D-Dimer Quant (PE/DVT) 2.09 H* Sodium 137 Potassium 4.4 Chloride 100 Carbon Dioxide 19.7 L Anion Gap 17 H BUN 17 Creatinine 1.48 H Estim Creat Clear Calc 46.58 L Est GFR (MDRD) Non-Af 50 L BUN/Creatinine Ratio 11.1 Glucose 213 H Calcium 10.1 Troponin T High Sens 21 Troponin T Hi Sens 2 Hr Urine Color Yellow Urine Clarity Clear Urine pH 5.0 Ur Specific [place] 1.015 Urine Protein 30 H Urine Glucose (UA) Normal Urine Ketones Negative Urine Occult Blood Negative Urine Nitrite Negative Urine Bilirubin Negative Urine Urobilinogen Normal Ur Leukocyte Esterase Negative Urine RBC 0 SEEN Urine WBC 0-5 SEEN Ur Squamous Epith Cells 0 SEEN Urine Bacteria 0 SEEN Hyaline Casts 25-50 SEEN Urine Mucus 0 SEEN 01/15/25 13:45 WBC RBC Hgb Hct MCV MCH MCHC RDW Std Deviation RDW Coeff of Philippe Plt Count MPV Immature Gran % (Auto) Neut % (Auto) Lymph % (Auto) [place] % (Auto) Eos % (Auto) Baso % (Auto) Absolute Neuts (auto) Absolute Lymphs (auto) Nucleated RBC % D-Dimer Quant (PE/DVT) Sodium Potassium Chloride Carbon Dioxide Anion Gap BUN Creatinine Estim Creat Clear Calc Est GFR (MDRD) Non-Af BUN/Creatinine Ratio Glucose Calcium Troponin T High Sens Troponin T Hi Sens 2 Hr 17 Urine Color Urine Clarity Urine pH Ur Specific [place] Urine Protein Urine Glucose (UA) Urine Ketones Urine Occult Blood Urine Nitrite Urine Bilirubin Urine Urobilinogen Ur Leukocyte Esterase Urine RBC Urine WBC Ur Squamous Epith Cells Urine Bacteria Hyaline Casts Urine Mucus Radiography Chest X-Ray - ED: 1 View, Read by ED Physician, Read by Radiologist and No Acute Disease Diagnostic Testing: Clinical Impression(s) from Imaging Studies Chest X-Ray 01/15/25 11:30 IMPRESSION: No acute process is identified in the chest. [facility] Chest CTA 01/15/25 13:12 IMPRESSION: No CT evidence of any filling defect to suggest acute pulmonary embolism. Atherosclerotic calcification of aortic arch and its branches. No CT evidence of any dissection or aneurysm. Coronary artery calcifications. Multiple scattered calcified granulomas and calcified nodules measuring up to 3 mm. Cholelithiasis without evidence of cholecystitis. Reading Location: [facility] Rhythm Strip Rhythm Strip: Sinus Rhythm Rate: 59 Ectopy: None EKG Initial EKG: Attestation: I personally reviewed and interpreted this EKG as follows: Interpretation: Sinus Bradycardia Comments: Sinus bradycardia at a rate of 59 bpm Normal axis Normal intervals Normal ST segments Compared to prior EKG on 09/29/2022 patient has reversal of ST depressions and T wave inversions in the lateral leads Discharge Plan Triage Chief Complaint: Syncope ED Provider: Gina Perera Dx/Rx/DC Orders Clinical Impression: Syncope and collapse, Strain of right trapezius muscle Instructions: ED Neck Sprain or Strain, ED Fainting, Uncertain Cause Prescriptions: No Action isosorbide mononitrate 60 mg tablet extended release 24 hr 60 mg PO DAILY Patient Comments: TAKE 1 TABLET BY MOUTH ONCE DAILY atorvastatin 40 mg tablet 40 mg PO DAILY metoprolol succinate 50 mg tablet extended release 24 hr 50 mg PO DAILY Patient Comments: TAKE 1 TABLET BY MOUTH ONCE DAILY Ultra CoQ10 75 mg capsule 75 mg PO DAILY allopurinol 100 MG tablet 100 mg PO BID aspirin 81 MG tablet 81 mg PO DAILY glimepiride 1 MG tablet 1 mg PO DAILY losartan 25 MG tablet 50 mg PO DAILY cholecalciferol (vitamin D3) 25 MCG tablet 25 mcg PO DAILY metformin 1,000 mg tablet 1,000 mg PO BID Primary Care Provider: Mina Haynes Referrals: Mina Haynes MD [Primary Care Provider] - Activity Restrictions/Additional Instructions: Please follow-up with 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 Your ER workup today was largely normal/reassuring. He did have some findings consistent with some mild dehydration. Make sure you drink plenty of fluids. If you have any chest pain or worsening symptoms such as recurrent l ightheadedness, passing out, palpitations or difficulty breathing please return the emergency room Print Language: Divehi Disposition Disposition: Home, Self Care
[2025-01-15] MEDS: 0.9% Normal Saline (1000mL) 1,000 ML 999 ML IV (12:32)
[2025-01-15 13:03] LABS: D-Dimer Quantitative (DVT/PE) 2.09 FEU/ug/m (0.27-0.49)
--- NOTE | 2025-01-15 13:12 | CT_ITS ---
PROCEDURE: CTA CHEST W/WO CONTRAST 01/15/2025 REASON FOR EXAM: SYNCOPE, ELEVATED DIMER, PE PROTOCOL TECHNIQUE: Procedure Code: [id number] Modality: CT Procedure: CTA CHEST W/WO CONTRAST Multiplanar Sagittal and Coronal images were obtained. CONTRAST: Isovue 370 VOLUME: 100 mL One or more dose reduction techniques were used (e.g., Automated exposure control, adjustment of the mA and/or kV according to patient size, use of iterative reconstruction technique). RADIATION DOSE SUMMARY: CTDlvol: 12.3 mGy DLP: 420 mGycm COMPARISON: None # of known CTs in the past 12 months: Not documented # of known Cardiac Nuclear Medicine Studies in the past 12 months: Not documented. FINDINGS: Thoracic Aorta: Atherosclerotic plaques. No aneurysm or dissection. Measurements (cm): Sinuses of Valsalva: 3.2 cm Sinotubular junction: 2.9 cm Mid ascendin cm Proximal aortic arch: 2.7 cm Mid aortic arch: 2.4 cm Proximal descendin.4 cm Mid descendin.3 cm Aorta at diaphragm: 2.5 cm Aorta at celiac axis: 2.7 cm Heart: Coronary artery calcifications are noted. Pulmonary Vessels: Pulmonary trunk measures 2.9 cm. There is no CT evidence of any filling defect to suggest pulmonary embolism within main pulmonary trunk, right and left pulmonary trunk and segmental bilateral pulmonary arteries. Evaluation of subsegmental pulmonary arteries is limited Hardware: None Lymph nodes: Scattered mediastinal lymph nodes. Lungs and Airways: Bibasilar atelectasis. Scattered calcified granulomas. Pleura: Bibasilar pleural thickening. Upper Abdomen: Cholelithiasis. Bones: Degenerative changes of the thoracic spine. CT/CTA Chest W/WO Contrast IMPRESSION: No CT evidence of any filling defect to suggest acute pulmonary embolism. Atherosclerotic calcification of aortic arch and its branches. No CT evidence of any dissection or aneurysm. Coronary artery calcifications. Multiple scattered calcified granulomas and calcified nodules measuring up to 3 mm. Cholelithiasis without evidence of cholecystitis. Reading Location: [facility]
[2025-01-15 14:13] LABS: Troponin T High Sens 2 HR 17 ng/L (<=22)
--- OUTSIDE RECORDS SUMMARY | 2025-01-15 21:35 | XMS RPT_ITS | CCD ---
Author Organization [facility] Care Team Providers Care Outpatient Physical Therapist Name Role Phone Sonia Haynes MD Primary Care Provider Erik Miles MD Unavailable Dr. Jose Haynes Primary Care Provider Dr. Jose Haynes Referring Provider Dr. Andre Jones Attending Provider RONALDO Palomo Attending Provider Dr. Connor Armenta Attending Provider Dr. Andre Jones Referring Provider Dr. Andre Jones Other Provider Sonia Haynes MD Primary Care Provider Erik Miles MD Unavailable Sonia Haynes MD Primary Care Provider DIONICIO SIMON Referring Unavailable DIONICIO SIMON Attending Unavailable SONIA HAYNES Primary Care Unavailabl Dr. Sonia Jaeger MD Primary Care Provider Dr. Sonia Haynes MD Attending Provider [phone] Dr. Sonia Haynes MD Referring Provider [phone] Sonia Haynes Primary Care Unavailable Mj Eastman Attending Unavailable Mj Eastman Referring Unavailable Sonia Haynes Primary Care Unavailable Mj Eastman Attending Unavailable Mj Eastman Referring Unavailable Sonia Haynes Primary Care Unavailable Fitz Marie Attending Unavailable Fitz Marie Referring Unavailable Sonia Haynes Attending Unavailable Sonia Haynes Referring Unavailable Sonia Haynes Primary Care Unavailable Dr. Gina Perera DO Emergency Provider Medications Current Medications Medication Drug Class(es) Dates Sig (Normalized) Sig (Original) allopurinol 100 mg oral tablet (20 sources) Xanthine Oxidase Inhibitor Start: 08-27-2013 take 1 tablet by mouth twice daily Allopurinol 100 MG tablet Active 100 mg PO TWICE A DAY August 27, 2013 12:00am Comment on above: Take 1 tablet by arian th twice daily. home medication aspirin 81 mg delayed release oral tablet (20 sources) Platelet Aggregation Inhibitor, Nonsteroidal Anti-inflammatory Drug Start: 08-27-2013 take 1 tablet by mouth once daily Aspirin 81 MG tablet Active 81 mg PO DAILY August 27, 2013 12:00am Start: 01-28-2006 ASPIRIN 81 MG TAB Take one(1) tablet daily. 0 01/28/2006 Active Comment on above: Take one(1) tablet d aily. atorvastatin 40 mg oral tablet (20 sources) HMG-CoA Reductase Inhibitor Start: 3 take 1 tablet by mouth once daily Atorvastatin 40 mg tablet Active 40 mg PO DAILY July 16, 2022 12:00am Start: 06-20-2021 End: 08-18-2021 take 1 tablet by mouth once daily at bedtime atorvastatin (LIPITOR) 80 mg tablet Take 1 tablet by mouth daily at bedtime. 90 tablet 1 08/18/2021 Active Comment on above: Take 1 tablet by arian th daily at bedtime. cholecalciferol 0.025 mg oral tablet (20 sources) Vitamin D Start: 11-28-2019 cholecalciferol (VITAMIN D3) 1,000 unit tab tablet Take by mouth. 11/28/2019 Active Start: 11-28-2019 take 1 tablet by arian th once daily Cholecalciferol (Vitamin D3) 25 MCG tablet Active 25 ug PO DAILY November 28, 2019 12:00am Comment on above: Take by mouth. glimepiride 1 mg oral tablet (20 sources) Sulfonylurea Start: 0 take 1 tablet by mouth once daily Glimepiride 1 MG tablet Active 1 mg PO DAILY November 28, 2019 12:00am Comment on above: Take 1 tablet by arian th once daily. Home medication dose verified with pharmacy 24 hr isosorbide mononitrate 60 mg extended release oral tablet (20 sources) Nitrate Vasodilator Start: End: take 1 tablet by mouth once daily, then take 1 tablet by mouth every twenty-four hours Isosorbide Mononitrate 60 mg tablet extended release 24 hr Active 60 mg PO DAILY July 16, 2022 12:00am Start: 06-20-2021 End: 08-18-2021 take 1 tablet by mouth once daily isosorbide mononitrate ER (IMDUR) 60 mg 24 hr tablet Take 1 tablet by mouth once daily. 90 tablet 1 08/18/2021 Active Comment on above: Take 1 tablet by arian th once daily. losartan potassium 25 mg oral tablet (20 sources) Angiotensin 2 Receptor Avinash Start: 05-17-2023 End: 04-25-2024 take 1 tablet by mouth once daily losartan (COZAAR) 25 mg tablet Take 1 tablet by mouth once daily 90 tablet 3 04/25/2024 Active Start: 05-14-2021 take 1 tablet by arian th once daily losartan (COZAAR) 25 mg tablet Take 1 tablet by mouth once daily. 90 tablet 3 05/11/2022 Active Start: 11-28-2019 take 2 tablets by mo ut once daily Losartan 25 MG tablet Active 50 mg PO DAILY November 28, 2019 12:00am Start: 11-28-2019 take 50 mg by mouth once daily Losartan Active 50 MG PO DAILY November 27, 2019 11:00pm Comment on above: Take 1 tablet by arian th once daily. metFORMIN hydrochloride 1000 mg oral tablet (20 sources) Biguanide Start: 01-15-2025 take 1 tablet by mouth twice daily Metformin 1,000 mg tablet Active 1000 mg PO TWICE A DAY January 15, 2025 12:00am Start: 12-01-2020 take 1 tablet by arian th twice daily metFORMIN (GLUCOPHAGE) 1,000 mg tablet Take 1 tablet by mouth twice daily. home medication 12/01/2020 Active Start: 08-27-2013 End: 01-15-2025 take 2 tablets by mouth twice daily Metformin 500 MG tablet Discontinued 1000 mg PO TWICE A DAY August 27, 2013 12:00am January 15, 2025 11:44am Start: 08-27-2013 take 1000 mg by mout h twice daily Metformin Active 1000 MG PO TWICE A DAY August 26, 2013 11:00pm Comment on above: Take 1 tablet by arian th twice daily. home medication 24 hr metoprolol succinate 50 mg extended release oral tablet (20 sources) beta-Adrenergic Avinash Start: 06-20-19 End: 11-10-19 take 1 tablet by mouth once daily Metoprolol Succinate 50 mg tablet extended release 24 hr Active 50 mg PO DAILY July 16, 2022 12:00am Comment on above: Take 1 tablet by arian th once daily. nitroglycerin 0.4 mg sublingual tablet (20 sources) Nitrate Vasodilator Start: 12-02-19 End: 07-02-19 23 nitroglycerin sublingual (NITROQUICK) 0.4 mg SL tablet Dissolve 1 tablet under the tongue every 5 minutes as needed for chest pain. Max 3. If no pain relief call 911. 30 tablet 1 07/01/2022 Active Comment on above: Dissolve 1 tablet un shefali the tongue every 5 minutes as needed for chest pain. Max 3. If no pain relief call 911. ubidecarenone 75 mg oral capsule (6 sources) Start: 07-17-19 Coenzyme Q10 (Ultra Coq10) 75 mg capsule Active 75 mg PO DAILY July 16, 2022 12:00am Completed/Discontinued Medications Medication Drug Class(es) Dates Sig (Normalized) Sig (Original) acetaminophen 325 mg / HYDROcodone bitartrate 5 mg oral tablet (5 sources) Opioid Agonist Start: 09-02-2022 End: 01-15-2025 Hydrocodone-Acetami nophen 5-325 mg tablet Discontinued 1 {tbl} PO EVERY 6 HOURS as needed for pain 10 3 0 September 02, 2022 January 15, 2025 11:01am Bilateral inguinal hernia without obstruction or gangrene Start: 09-02-2022 take 1 tablet by arian th every six hours Hydrocodone-Acetaminophen Active 1 TABLE T PO EVERY 6 HOURS 10 3 September 02, 2022 clopidogrel 75 mg oral tablet (9 sources) P2Y12 Platelet Inhibitor Start: 07-02-2021 End: 02-10-2023 take 1 tablet by mouth once daily clopidogrel (PLAVIX) 75 mg tablet Take 1 tablet by mouth once daily. 90 tablet 1 07/02/2021 02/10/2023 Discontinued (Clinical Decision) Comment on above: Take 1 tablet by arian once daily. tamsulosin hydrochloride 0.4 mg oral capsule (6 sources) alpha-Adrenergic Avinash Start: 07-16-2022 End: 01-15-2025 take 1 capsule by mouth once daily Tamsulosin (Flomax) 0.4 mg capsule Discontinued 0.4 mg PO DAILY 30 0 July 16, 2022 12:00am January 15, 2025 11:01am Start taking 2 weeks prior to surgery Problems Active Problems Problem Classification Problem Date Documented Da te Episodic/Chronic Abdominal hernia (10 sources) Bilateral inguinal hernia; Translations: [Bilateral inguinal hernia, without obstruction or gangrene, not specified as recurrent] 08-27-2022 Episodic Acute myocardial infarction (20 sources) Acute ST segment elevation myocardial infarction; Translations: [ST elevation (STEMI) myocardial infarction of unspecified site] Onset: 11-24-2020 12-01-2020 Chronic Coronary atherosclerosis and other heart disease (20 sources) Coronary atherosclerosis; Translations: [Atherosclerotic heart disease of [place] coronary artery with unstable angina pectoris] Onset: 11-23-2020 Resolved: 11-26-2020 12-01-2020 Chronic Diabetes mellitus with complications (20 sources) Type 2 diabetes mellitus; Translations: [Type 2 diabetes mellitus with other circulatory complications] Onset: 11-24-2020 12-01-2020 Chronic Disorders of lipid metabolism (20 sources) Hyperlipidemia; Translations: [Hyperlipidemia, unspecified] Onset: 05-13-2021 05-13-2021 Chronic Genitourinary symptoms and ill-defined conditions (8 sources) Retention of urine; Translations: [Retention of urine, unspecified] 08-27-2022 Episodic Hyperplasia of prostate (19 sources) Benign prostatic hypertrophy with outflow obstruction; Translations: [Benign prostatic hyperplasia with lower urinary tract symptoms] Onset: 01-27-2007 01-27-2007 Chronic Other diseases of bladder and urethra (19 sources) Bladder neck obstruction; Translations: [Bladder-neck obstruction] Onset: 12-05-2009 12-05-2009 Chronic Other gastrointestinal disorders (6 sources) Constipation; Translations: [Constipation, unspecified] 08-27-2022 Episodic Other gastrointestinal disorders (2 sources) Constipation, unspecified; Translations: [Constipation, unspecified] 07-16-2022 Episodic Other male genital disorders (19 sources) Induratio penis plastica; Translations: [Induration penis plastica] Onset: 01-27-2007 01-27-2007 Chronic Other male genital disorders (19 sources) Secondary erectile dysfunction; Translations: [Male erectile dysfunction, unspecified] Onset: 01-12-2008 01-12-2008 Chronic Sprains and strains (2 sources) Strain of other muscles, fascia and tendons at shoulder and upper arm level, unspecified arm, initial encounter; Translations: [Strain of right trapezius muscle] Onset: 11-06-2024 01-15-2025 Episodic Syncope (1 source) Syncope and collapse; Translations: [Syncope and collapse] 01-15-2025 Episodic Past or Other Problems Problem Classification Problem Date Documented Da te Episodic/Chronic Essential hypertension (9 sources) Essential hypertension; Translations: [Essential (primary) hypertension] Onset: 11-26-2020 Resolved: 11-26-2020 11-26-2020 Chronic Other screening for suspected conditions (not mental disorders or infectious disease) (1 source) Encounter for screening for malignant neoplasm of prostate; Translations: [Encounter for screening for malignant neoplasm of prostate] Onset: 04-11-2024 Episodic Results Test Name Value Interpretation Reference Range Facility Absolute lymphocyte countOrd ered By: Gina Perera on 01-15-2025 Lymphocytes Auto (Unsp spec) [#/Vol] 1.72 10*3/uL 0.83-4.51 [facility] Absolute neutrophil countOrd ered By: Gina Perera on 01-15-2025 Neutrophils (Bld) [#/Vol] 5.7 10*3/uL 2.0-7.7 [facility] Anion gap in Serum or Plasma Ordered By: Gina Perera on 01-15-2025 Anion gap [Moles/Vol] 17 mmol/L High 09-14 [facility] Automated lymphocyte count a s percentage of total leukocytesOrdered By: Gina Perera on 01-15-2025 Lymphocytes/100 WBC Auto (Unsp spec) 19.5 % - [facility] BUN/creatinine ratioOrdered By: Gina Perera on 01-15-2025 Urea nitrogen/Creatinine [Mass ratio] 11.1 mg/mg 10- [facility] Basophil percentageOrdered B y: Gina Perera on 01-15-2025 Basophils/100 WBC (Bld) 0.5 % 0-1 [facility] Bilirubin Test strip Ql (U)O rdered By: Gina Perera on 01-15-2025 Bilirubin Ql (U) Negative Negative [facility] Carbon dioxide, total [Moles /volume] in Central venous bloodOrdered By: Gina Perera on 01-15-2025 CO2 [Moles/Vol] 19.7 mmol/L Low 21.0-32.0 [facility] Chloride assayOrdered By: Mazin Perera on 01-15-2025 Chloride [Moles/Vol] 100 mmol/L 98-108 [facility] Eosinophil percentageOrdered By: Gina Perera on 01-15-2025 Eosinophils/100 WBC (Bld) 0.9 % 0-5 [facility] Erythrocyte distribution wid th ratioOrdered By: Gina Perera on 01-15-2025 Erythrocyte distribution width (RBC) [Ratio] 13.9 % 11.6-14.6 [facility] Erythrocyte distribution wid th standard deviationOrdered By: Gina Perera on 01-15-2025 Erythrocyte distribution width (RBC) [Ratio] 49.7 fl High 35.1-43.9 [facility] Glomerular filtration rate ( GFR) estimation/1.73 sq m using serum, plasma, or whole bOrdered By: Gina Perera on 01-15-2025 GFR/1.73 sq M.predicted among non-blacks MDRD (S/P/Bld) [Vol rate/Area] 50 mL/min/{1.73_m2} Low >60 [facility] Comment on above: mL/min/1.73m2 CKD-EP I Creatinine Equation (2020) Hematocrit Auto (Bld) [Volum e fraction]Ordered By: Gina Perera on 01-15-2025 Hematocrit (Bld) [Volume fraction] 39.7 % Low 40-54 [facility] Hemoglobin measurementOrdere d By: Gina Perera on 01-15-2025 Hemoglobin (Bld) [Mass/Vol] 13.8 g/dL 13.0-16.5 [facility] Hyaline casts LM.LPF (Urine sed) [#/Area]Ordered By: Gina Perera on 01-15-2025 Hyaline casts (Urine sed) [#/Area] 25 /[LPF] 0-5 [facility] Immature granulocytes/100 WB C Auto (Bld)Ordered By: Gina Perera on 01-15-2025 Immature granulocytes/100 WBC (Bld) 0.600 % 0.0-0.9 [facility] Comment on above: IG% - Immature Granu locytes (promyelocytes, myelocytes and metamyelocytes) > 1% indicates that a LEFT SHIFT is Present. Ketones Test strip Ql (U)Ord ered By: Gina Perera on 01-15-2025 Ketones Ql (U) Negative Negative [facility] MCV (mean corpuscular volume ) determinationOrdered By: Gina Perera on 01-15-2025 MCV (RBC) [Entitic vol] 97.3 fL High 80-94 [facility] Mean corpuscular hemoglobin (MCH) determinationOrdered By: Gina Perera on 01-15-2025 MCH (RBC) [Entitic mass] 33.8 pg High 27.0-32.0 [facility] Mean corpuscular hemoglobin concentration (MCHC) determinationOrdered By: Gina Perera on 01-15-2025 MCHC (RBC) [Mass/Vol] 34.8 g/dL 32-36 [facility] Mean platelet volume determi nationOrdered By: Gina Perera on 01-15-2025 Platelet mean volume (Bld) [Entitic vol] 10.7 fL 6.2-12.0 [facility] Microscopic analysis of urin e for red blood cells (RBC)Ordered By: Gina Perera on 01-15-2025 Microscopic analysis of urine for red blood cells (RBC) 0 SEEN /hpf 0-5 [facility] Monocyte percentageOrdered B y: Gina Perera on 01-15-2025 Monocytes/100 WBC (Bld) 14.4 % High 0-10 [facility] Mucus LM Ql (Urine sed)Order ed By: Gina Perera on 01-15-2025 Mucus Ql (Urine sed) 0 SEEN /hpf [facility] Neutrophil percentageOrdered By: Gina Perera on 01-15-2025 Neutrophils/100 WBC (Bld) 64.1 % 47-70 [facility] Nitrite Test strip Ql (U)Ord ered By: Gina Perera on 01-15-2025 Nitrite Ql (U) Negative Negative [facility] Nucleated red blood cell per centageOrdered By: Gina Perera on 01-15-2025 Nucleated RBC/100 WBC (Bld) [Ratio] 0 % 0-5 [facility] Platelet countOrdered By: Mazin Perera on 01-15-2025 Platelets (Bld) [#/Vol] 190 10*3/uL 150-450 [facility] Potassium measurement (mass/ volume)Ordered By: Gina Perera on 01-15-2025 Potassium (Unsp spec) [Mass/Vol] 4.4 mmol/L 3.3-5.1 [facility] Protein Test strip Ql (U)Ord ered By: Gina Perera on 01-15-2025 Protein Ql (U) 30 mg/dl High Negative [facility] RBC Auto (Bld) [#/Vol]Ordere d By: Gina Perera on 01-15-2025 RBC (Bld) [#/Vol] 4.08 10*6/uL Low 4.6-6.2 [facility] Serum creatinine measurement (mass/volume)Ordered By: Gina Perera on 01-15-2025 Creatinine [Mass/Vol] 1.48 mg/dL High 0.70-1.20 [facility] Serum glucose measurement (m ass/volume)Ordered By: Gina Perera on 01-15-2025 Glucose [Mass/Vol] 213 mg/dL High 70-99 [facility] Serum or plasma calcium guanako urement (mass/volume)Ordered By: Gina Perera on 01-15-2025 Calcium [Mass/Vol] 10.1 mg/dL 7.6-11.0 [facility] Serum or plasma urea nitroge n measurement (mass/volume)Ordered By: Gina Perera on 01-15-2025 Urea nitrogen [Mass/Vol] 17 mg/dL 4-19 [facility] Sodium levelOrdered By: Jerry Perera on 01-15-2025 Sodium [Moles/Vol] 137 mmol/L 133-145 [facility] Squamous epithelial cells de tection in urine sediment by light microscopyOrdered By: Gina Perera on 01-15-2025 Epithelial cells.squamous LM Ql (Urine sed) 0 SEEN /hpf 0-5 [facility] Troponin T.cardiac [Mass/vol ume] in Serum or Plasma by High sensitivity methodOrdered By: Gina Perera on 01-15-2025 Troponin T.cardiac High sensitivity method [Mass/Vol] 17 ng/L <22 [facility] Troponin T.cardiac High sensitivity method [Mass/Vol] 21 ng/L <22 [facility] Urine clarityOrdered By: Evelyn Perera on 01-15-2025 Clarity (U) Clear Clear [facility] Urine color determinationOrd ered By: Gina Perera on 01-15-2025 Color (U) Yellow Yellow [facility] Urine glucose detectionOrder ed By: Gina Perera on 01-15-2025 Glucose Ql (U) Normal mg/dl Normal [facility] Urine leukocyte esterase det ection by dipstickOrdered By: Gina Perera on 01-15-2025 Leukocyte esterase Test strip Ql (U) Negative Negative [facility] Urine pHOrdered By: Gina dave on 01-15-2025 pH (U) 5.0 [pH] 5.0 - 8.0 [facility] Urine sediment bacteria coun t by microscopy (number/high power field)Ordered By: Gina Perera on 01-15-2025 Bacteria LM.HPF (Urine sed) [#/Area] 0 /[HPF] None Seen [facility] Urine specific gravity measu rementOrdered By: Gina Perera on 01-15-2025 Specific gravity (U) [Rel density] 1.015 1.002-1.030 [facility] Urine urobilinogen measureme ntOrdered By: Gina Perera on 01-15-2025 Urobilinogen Ql (U) Normal mg/dl Normal [facility] White blood cell (WBC) count Ordered By: Gina Perera on 01-15-2025 WBC (Bld) [#/Vol] 8.8 10*3/uL 4.4-11.0 [facility] White blood cell countOrdere d By: Ginaabdi Perera on 01-15-2025 White blood cell count 0-5 SEEN /hpf 0-5 [facility] AARON ELKINS ([id number]) 1950 M Date Time Provider Department 11/09/24 DIONICIO SIMON [facility] During your visit today, we recorded the following information about you: Anh Estrada LPN 11/09/2024 7:39 AM Signed Patient last seen 11/08/23. Patient instructed to follow up in 12 months. Please call patient with appointment. Anh Aguilar LPN November 09, 2024 7:38 AM Sivan Montanez 11/09/2024 10:38 AM Signed Patient scheduled for 02/07/25. Sivan Montanez Allergies As of Date: 11/09/2024 (No Known Allergies) Date Reviewed: 11/08/2023 Reviewed by: Dionicio Simon MD - Fully Assessed Prescriptions as of 11/09/2024 - losartan (COZAAR) 25 mg tablet Take 1 tablet by mouth once daily - isosorbide mononitrate ER (IMDUR) 60 mg 24 hr tablet Take 1 tablet by mouth once daily - metoprolol succinate ER (TOPROL XL) 50 mg 24 hr tablet Take 1 tablet by mouth once daily - nitroglycerin sublingual (NITROQUICK) 0.4 mg SL tablet Dissolve 1 tablet under the tongue every 5 minutes as needed for chest pain. Max 3. If no pain relief call 911. - atorvastatin (LIPITOR) 80 mg tablet Take 1 tablet by mouth daily at bedtime. - cholecalciferol (VITAMIN D3) 1,000 unit tab tablet Take by mouth. - glimepiride (AMARYL) 1 mg tablet Take 1 tablet by mouth once daily. Home medication dose verified with pharmacy - metFORMIN (GLUCOPHAGE) 1,000 mg tablet Take 1 tablet by mouth twice daily. home medication - allopurinol (ZYLOPRIM) 100 mg tablet Take 1 tablet by mouth twice daily. home medication - ASPIRIN 81 MG TAB Take one(1) tablet daily. 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, ORGANIC ORIGN [N52.9] 01/12/2008 Bladder Neck Obstruction [N32.0] 12/05/2009 Acute coronary syndrome (HCC) [I24.9] 11/23/2020 11/26/2020 Controlled type 2 diabetes mellitus with circul*11/24/[address] elevation myocardial infarction (STEMI*11/24/2020 Pre-op testing [Z01.818] 11/26/2020 11/27/2020 Primary hypertension [I10] 11/26/2020 11/26/2020 Coronary artery disease involving [place]*11/26/2020 Hyperlipidemia [E78.5] 05/13/2021 Myocardial infarction (HCC) [I21.9] 05/13/2021 Encounter Status:Closed by SIVAN MONTANEZ on 11/09/24 [facility] Anion gap in Serum or Plasma Ordered By: Sonia Haynes on 10-31-2024 Anion gap [Moles/Vol] 15 mmol/L 5-15 [facility] BUN/creatinine ratioOrdered By: Sonia Haynes on 10-31-2024 Urea nitrogen/Creatinine [Mass ratio] 15.8 mg/mg 10-20 [facility] Bilirubin, totalOrdered By: Sonia Haynes on 10-31-2024 Bilirubin [Mass/Vol] 1.00 mg/dL 0.00-1.30 [facility] Calculated very low density lipoprotein (VLDL) cholesterol measurementOrdered By: Sonia Haynes on 10-31-2024 Calculated very low density lipoprotein (VLDL) cholesterol measurement 49 mg/dL High 5-40 [facility] Carbon dioxide, total [Moles /volume] in Central venous bloodOrdered By: Sonia Haynes on 10-31-2024 CO2 [Moles/Vol] 20.1 mmol/L Low 21.0-32.0 [facility] Cerv Spine Obl/Flex/Ext Comp on 10-31-2024 Cerv Spine Obl/Flex/Ext Comp [facility] Imaging Services [address] [place] [place], [place] [address] Cerv Spine Obl/Flex/Ext Comp MR#: [id number] Acct: [id number] Name: AARON ELKINS Rep #: [id number] : 1950 M 74 From: Nahun Collado MD PCP: Dr. Sonia Haynes MD Status: REG CLI Study: Cerv Spine Obl/Flex/Ext Comp Date of Exam: 05/27 Exam# [id number] Ordering Dr: Sonia Haynes PROCEDURE: CERV SPINE OBL/FLEX/EXT COMP 10/31/2024 REASON FOR EXAM: STRAIN OF OTHER MUSCLES, FASCIA AND TENDONS AT SHOULDER AND UPPER TECHNIQUE: CERV SPINE OBL/FLEX/EXT COMP COMPARISON: No FINDINGS: Mild and diffuse facet arthritis. At C5-6, there is moderate disc space narrowing and anterior osteophyte formation. At C6-7 there is mild disc space narrowing and anterior osteophyte formation. No abnormal motion with flexion and extension. There is predominantly right-sided mild/moderate multilevel exit foraminal narrowing. Mild cervicothoracic scoliosis. Bilateral carotid artery calcifications. No acute bone or soft tissue pathology. RAD/Cerv Spine Obl/Flex/Ext Comp IMPRESSION: Cervical spine scoliosis and degeneration Disclaimer: Reading Location: [place] [address] CC: Dr. Sonia Haynes MD Planer Hand: Signed Normal [facility] Chloride assayOrdered By: Magalis Haynes on 10-31-2024 Chloride [Moles/Vol] 102 mmol/L 98-108 [facility] Comprehensive Metabolic Prof ilon 10-31-2024 Albumin [Mass/Vol] 4.5 g/dL Normal 3.4-4.8 [facility] Comment on above: Order Comment: CAN N OT DO THE PSA FELIPE. WAS DONE 03/13/24 Performed By: #### L 500.4050, L509.3001, L501.9520, L500.4100 #### [facility] [address] [place], [address] Albumin/Globulin [Mass ratio] 1.4 {ratio} Normal 0.9-2.4 [facility] Comment on above: Order Comment: CAN N OT DO THE PSA FELIPE. WAS DONE 03/13/24 Performed By: #### L 500.4050, L509.3001, L501.9520, L500.4100 #### [facility] [address] [place], [address] ALK PHOS 73 U/L Normal 40-129 [facility] [facility] Comment on above: Order Comment: CAN N OT DO THE PSA FELIPE. WAS DONE 03/13/24 Performed By: #### L 500.4050, L509.3001, L501.9520, L500.4100 #### [facility] [address] [place], [address] ALT [Catalytic activity/Vol] 21 U/L Normal <=46 [facility] Comment on above: Order Comment: CAN N OT DO THE PSA FELIPE. WAS DONE 03/13/24 Performed By: #### L 500.4050, L509.3001, L501.9520, L500.4100 #### [facility] [address] [place], [address] AST [Catalytic activity/Vol] 23 U/L Normal <=37 [facility] Comment on above: Order Comment: CAN N OT DO THE PSA FELIPE. WAS DONE 03/13/24 Performed By: #### L 500.4050, L509.3001, L501.9520, L500.4100 #### [facility] [address] [place], [address] Bilirubin [Mass/Vol] 1.00 mg/dL Normal 0.00-1.30 [facility] Comment on above: Order Comment: CAN N OT DO THE PSA FELIPE. WAS DONE 03/13/24 Performed By: #### L 500.4050, L509.3001, L501.9520, L500.4100 #### [facility] [address] [place], [address] BUN/CRE 15.8 RATIO Normal 10-20 [facility] Comment on above: Order Comment: CAN N OT DO THE PSA FELIPE. WAS DONE 03/13/24 Performed By: #### L 500.4050, L509.3001, L501.9520, L500.4100 #### [facility] [address] [place], [address] Calcium [Mass/Vol] 10.2 mg/dL Normal 7.6-11.0 [facility] Comment on above: Order Comment: CAN N OT DO THE PSA FELIPE. WAS DONE 03/13/24 Performed By: #### L 500.4050, L509.3001, L501.9520, L500.4100 #### [facility] [address] [place], [address] Chloride [Moles/Vol] 102 mmol/L Normal 98-108 [facility] Comment on above: Order Comment: CAN N OT DO THE PSA FELIPE. WAS DONE 03/13/24 Performed By: #### L 500.4050, L509.3001, L501.9520, L500.4100 #### [facility] [address] [place], [address] CO2 [Moles/Vol] 20.1 mmol/L Low 21.0-32.0 [facility] Comment on above: Order Comment: CAN N OT DO THE PSA FELIPE. WAS DONE 03/13/24 Performed By: #### L 500.4050, L509.3001, L501.9520, L500.4100 #### [facility] [address] [place], [address] Creatinine [Mass/Vol] 1.23 mg/dL High 0.70-1.20 [facility] Comment on above: Order Comment: CAN N OT DO THE PSA FELIPE. WAS DONE 03/13/24 Performed By: #### L 500.4050, L509.3001, L501.9520, L500.4100 #### [facility] [address] [place], [address] GAP 15 Normal 5-15 [facility] Comment on above: Order Comment: CAN N OT DO THE PSA FELIPE. WAS DONE 03/13/24 Performed By: #### L 500.4050, L509.3001, L501.9520, L500.4100 #### [facility] [address] [place], [address] GFR/1.73 sq M.predicted among non-blacks MDRD (S/P/Bld) [Vol rate/Area] 62 mL/min/{1.73_m2} Normal >60 [facility] Comment on above: Order Comment: CAN N OT DO THE PSA FELIPE. WAS DONE 03/13/24 Result Comment: mL/m in/1.73m2 CKD-EPI Creatinine Equation (2020) Performed By: #### L 500.4050, L509.3001, L501.9520, L500.4100 #### [facility] [address] [place], [address] Globulin (S) [Mass/Vol] 3.3 g/dL Normal 2.2-4.2 [facility] Comment on above: Order Comment: CAN N OT DO THE PSA FELIPE. WAS DONE 03/13/24 Performed By: #### L 500.4050, L509.3001, L501.9520, L500.4100 #### [facility] [address] [place], [address] Glucose [Mass/Vol] 153 mg/dL High 70-99 [facility] Comment on above: Order Comment: CAN N OT DO THE PSA FELIPE. WAS DONE 03/13/24 Performed By: #### L 500.4050, L509.3001, L501.9520, L500.4100 #### [facility] [address] [place], [address] Potassium [Moles/Vol] 4.5 mmol/L Normal 3.3-5.1 [facility] Comment on above: Order Comment: CAN N OT DO THE PSA FELIPE. WAS DONE 03/13/24 Performed By: #### L 500.4050, L509.3001, L501.9520, L500.4100 #### [facility] [address] [place], [address] Sodium [Moles/Vol] 137 mmol/L Normal 133-145 [facility] Comment on above: Order Comment: CAN N OT DO THE PSA FELIPE. WAS DONE 03/13/24 Performed By: #### L 500.4050, L509.3001, L501.9520, L500.4100 #### [facility] [address] [place], [address] T PROT 7.8 g/dL Normal 5.9-8.4 [facility] Comment on above: Order Comment: CAN N OT DO THE PSA FELIPE. WAS DONE 03/13/24 Performed By: #### L 500.4050, L509.3001, L501.9520, L500.4100 #### [facility] [address] [place], [address] Urea nitrogen [Mass/Vol] 19 mg/dL Normal 4-19 [facility] Comment on above: Order Comment: CAN N OT DO THE PSA FELIPE. WAS DONE 03/13/24 Performed By: #### L 500.4050, L509.3001, L501.9520, L500.4100 #### [facility] [address] [place], [address] Glomerular filtration rate ( GFR) estimation/1.73 sq m using serum, plasma, or whole bOrdered By: Sonia Haynes on 10-31-2024 GFR/1.73 sq M.predicted among non-blacks MDRD (S/P/Bld) [Vol rate/Area] 62 mL/min/{1.73_m2} >60 [facility] Comment on above: mL/min/1.73m2 CKD-EP I Creatinine Equation (2020) L509.3001on 10-31-2024 Testosterone [Mass/Vol] 330.00 ng/dL Normal 300-720 [facility] Comment on above: Order Comment: CAN N OT DO THE PSA FELIPE. WAS DONE 03/13/24 Performed By: #### L 500.4050, L509.3001, L501.9520, L500.4100 #### [facility] [address] [place], [address] LDL calc ser/plasOrdered By: Sonia Haynes on 10-31-2024 Cholesterol in LDL [Mass/Vol] 28 mg/dL [facility] Comment on above: Fljajkhdpf=717-257 m g/dL & Higher Tevz=769 mg/dL or greater Laboratory - Chemistry and C hemistry - challengeOrdered By: Sonia Haynes on 10-31-2024 AST [Catalytic activity/Vol] 23 U/L <38 [facility] Testosterone [Mass/Vol] 330.00 ng/dL 300-720 [facility] Lipid Profileon 10-31-2024 CHOL:HDL 3.24 Normal [facility] Comment on above: Order Comment: CAN N OT DO THE PSA FELIPE. WAS DONE 03/13/24 Performed By: #### L 500.4050, L509.3001, L501.9520, L500.4100 #### [facility] [address] [place], [address] Cholesterol [Mass/Vol] 111 mg/dL Normal <=200 [facility] Comment on above: Order Comment: CAN N OT DO THE PSA FELIPE. WAS DONE 03/13/24 Result Comment: Chol esterol level, Desirable <200 mg/dL Borderline high cholesterol 200-239 mg/dL High cholesterol >=240 mg/dL Recommendations of the NCEP Adult Treatment Panel for the following risk-cutoff thresholds for the [place] population. Performed By: #### L 500.4050, L509.3001, L501.9520, L500.4100 #### [facility] [address] [place], [address] Cholesterol in HDL [Mass/Vol] 34 mg/dL Low [facility] Comment on above: Order Comment: CAN N OT DO THE PSA FELIPE. WAS DONE 03/13/24 Result Comment: Isa onal Cholesterol Education Program (NCEP) guidelines: <40 mg/dL: Low HDL-cholesterol (major risk factor for CHD) >= 60 mg/dL: High HDL-cholesterol (negative risk factor for CHD) HDL-cholesterol is affected by a number of factors, e.g. smoking, exercise, hormones, sex and age. Performed By: #### L 500.4050, L509.3001, L501.9520, L500.4100 #### [facility] [address] [place], [address] Cholesterol in LDL [Mass/Vol] 28 mg/dL Normal [facility] Comment on above: Order Comment: CAN N OT DO THE PSA FELIPE. WAS DONE 03/13/24 Result Comment: Bord qihrzx=964-022 mg/dL Higher Otpt=739 mg/dL or greater Performed By: #### L 500.4050, L509.3001, L501.9520, L500.4100 #### [facility] [address] [place], [address] Cholesterol in VLDL [Mass/Vol] 49 mg/dL High 5-40 [facility] Comment on above: Order Comment: CAN N OT DO THE PSA FELIPE. WAS DONE 03/13/24 Performed By: #### L 500.4050, L509.3001, L501.9520, L500.4100 #### [facility] [address] [place], [address] Triglyceride [Mass/Vol] 243 mg/dL High [facility] Comment on above: Order Comment: CAN N OT DO THE PSA FELIPE. WAS DONE 03/13/24 Result Comment: The drugs N-Acetylcysteine and Metamizole may falsely depress this assay. Normal range: <150 mg/dL Borderline High: 150-199 mg/dL High: 200-499 mg/dL Very High: >500 mg/dL Performed By: #### L 500.4050, L509.3001, L501.9520, L500.4100 #### [facility] [address] [place], [address] Potassium measurement (mass/ volume)Ordered By: Sonia Haynes on 10-31-2024 Potassium (Unsp spec) [Mass/Vol] 4.5 mmol/L 3.3-5.1 [facility] Screening total cholesterol/ high density lipoprotein (HDL) cholesterol ratioOrdered By: Sonia Haynes on 10-31-2024 Cholesterol.total/Cholest rolf in HDL [Mass ratio] 3.24 {ratio} [facility] Serum creatinine measurement (mass/volume)Ordered By: Sonia Haynes on 10-31-2024 Creatinine [Mass/Vol] 1.23 mg/dL High 0.70-1.20 [facility] Serum globulin measurementOr dered By: Sonia Haynes on 10-31-2024 Globulin (S) [Mass/Vol] 3.3 g/dL 2.2-4.2 [facility] Serum glucose measurement (m ass/volume)Ordered By: Sonia Haynes on 10-31-2024 Glucose [Mass/Vol] 153 mg/dL High 70-99 [facility] Serum or plasma alanine cochran otransferase (ALT) measurementOrdered By: Sonia Haynes on 10-31-2024 ALT [Catalytic activity/Vol] 21 U/L <47 [facility] Serum or plasma albumin guanako urement (mass/volume)Ordered By: Sonia Haynes on 10-31-2024 Albumin [Mass/Vol] 4.5 g/dL 3.4-4.8 [facility] Serum or plasma albumin/glob ulin mass ratioOrdered By: Sonia Haynes on 10-31-2024 Albumin/Globulin [Mass ratio] 1.4 {ratio} 0.9-2.4 [facility] Serum or plasma alkaline jade sphatase measurementOrdered By: Sonia Haynes on 10-31-2024 ALP [Catalytic activity/Vol] 73 U/L 40-129 [facility] Serum or plasma calcium guanako urement (mass/volume)Ordered By: Sonia Haynes on 10-31-2024 Calcium [Mass/Vol] 10.2 mg/dL 7.6-11.0 [facility] Serum or plasma cholesterol in HDL measurement (mass/volume)Ordered By: Sonia Haynes on 10-31-2024 Cholesterol in HDL [Mass/Vol] 34 mg/dL Low >40 [facility] Comment on above: National Cholesterol Education Program (NCEP) guidelines:<40 mg/dL: Low HDL-cholesterol (major risk factor for CHD)>= 60 mg/dL: High HDL-cholesterol (negative risk factor for CHD)HDL-cholesterol is affected by a number of factors, e.g. smoking, exercise, hormones, sex and age. Serum or plasma cholesterol measurement (mass/volume)Ordered By: Sonia Haynes on 10-31-2024 Cholesterol [Mass/Vol] 111 mg/dL <201 [facility] Comment on above: Cholesterol level, D esirable <200 mg/dLBorderline high cholesterol 200-239 mg/dLHigh cholesterol >=240 mg/dLRecommendations of the NCEP Adult Treatment Panel for the following risk-cutoff thresholds for the [place] population. Serum or plasma urea nitroge n measurement (mass/volume)Ordered By: Sonia Haynes on 10-31-2024 Urea nitrogen [Mass/Vol] 19 mg/dL 4-19 [facility] Sodium levelOrdered By: Ricardo Haynes on 10-31-2024 Sodium [Moles/Vol] 137 mmol/L 133-145 [facility] TSH DL <= 0.005 mIU/L QnOrde red By: Sonia Haynes on 10-31-2024 TSH Qn 4.410 uIU/mL High 0.300-4.200 [facility] Thyroid Stim Hormone (TSH)on 10-31-2024 TSH 4.410 uIU/mL High 0.300-4.200 [facility] Comment on above: Order Comment: CAN N OT DO THE PSA FELIPE. WAS DONE 03/13/24 Performed By: #### L 500.4050, L509.3001, L501.9520, L500.4100 #### [facility] [address] [place], [address] Total proteinOrdered By: Jossy Haynes on 10-31-2024 Protein [Mass/Vol] 7.8 g/dL 5.9-8.4 [facility] Triglycerides measurementOrd ered By: Sonia Hanyes on 10-31-2024 Triglyceride [Mass/Vol] 243 mg/dL High <199 [facility] Comment on above: The drugs N-Acetylcy steine and Metamizole may falsely depress this assay. Normal range: <150 mg/dLBorderline High: 150-199 mg/dLHigh: 200-499 mg/dLVery High: >500 mg/dL Albumin, Serumon 12-27-2023 Albumin [Mass/Vol] 3.6 g/dL Normal 3.2-5.0 [facility] Comment on above: Performed By: #### L 500.2500, M100.651, L100.0100, L501.9985, L501.1800 #### [facility] [address] [place], [address] Basic Metabolic Profile (BMP )on 12-27-2023 BUN/CRE 38.2 RATIO High 10-20 [facility] Comment on above: Performed By: #### L 500.2500, M100.651, L100.0100, L501.9985, L501.1800 #### [facility] [address] [place], [address] CA,Total 9.5 mg/dL Normal 8.5-10.1 [facility] Comment on above: Performed By: #### L 500.2500, M100.651, L100.0100, L501.9985, L501.1800 #### [facility] [address] [place], [address] Chloride [Moles/Vol] 105 mmol/L Normal 98-107 [facility] Comment on above: Performed By: #### L 500.2500, M100.651, L100.0100, L501.9985, L501.1800 #### [facility] [address] [place], [address] CO2 [Moles/Vol] 20.0 mmol/L Low 21.0-32.0 [facility] Comment on above: Performed By: #### L 500.2500, M100.651, L100.0100, L501.9985, L501.1800 #### [facility] [address] [place], [address] Creatinine [Mass/Vol] 1.23 mg/dL Normal 0.70-1.30 [facility] Comment on above: Result Comment: The validity of the calculated GFR GFRAA in patients over 70 years has not been determined. Clinical correlation is essential. Performed By: #### L 500.2500, M100.651, L100.0100, L501.9985, L501.1800 #### [facility] [address] [place], [address] EST GFR - AA 74 mL/min Normal >60 [facility] Comment on above: Result Comment: Afri can [place] GFR Calc Performed By: #### L 500.2500, M100.651, L100.0100, L501.9985, L501.1800 #### [facility] [address] [place], [address] GAP 10 Normal 5-15 [facility] Comment on above: Performed By: #### L 500.2500, M100.651, L100.0100, L501.9985, L501.1800 #### [facility] [address] [place], [address] GFR/1.73 sq M.predicted among non-blacks MDRD (S/P/Bld) [Vol rate/Area] 62 mL/min/{1.73_m2} Normal >60 [facility] Comment on above: Result Comment: Non- GFR Calc Performed By: #### L 500.2500, M100.651, L100.0100, L501.9985, L501.1800 #### [facility] [address] [place], [address] Glucose [Mass/Vol] 195 mg/dL High 74-106 [facility] Comment on above: Result Comment: Fast ing Glucose result greater than or equal to 126 mg/dL suggests DIABETES MELLITUS per A.D.A. criteria. Performed By: #### L 500.2500, M100.651, L100.0100, L501.9985, L501.1800 #### [facility] [address] [place], [address] Potassium [Moles/Vol] 5.1 mmol/L Normal 3.5-5.1 [facility] Comment on above: Performed By: #### L 500.2500, M100.651, L100.0100, L501.9985, L501.1800 #### [facility] [address] [place], [address] Sodium [Moles/Vol] 135 mmol/L Low 136-145 [facility] Comment on above: Performed By: #### L 500.2500, M100.651, L100.0100, L501.9985, L501.1800 #### [facility] [address] [place], [address] Urea nitrogen [Mass/Vol] 47 mg/dL High 7-18 [facility] Comment on above: Performed By: #### L 500.2500, M100.651, L100.0100, L501.9985, L501.1800 #### [facility] [address] [place], [address] CBC W/Diff, Automatedon 08-2 Absolute Lymph 1.53 X10 3/uL Normal 0.83-4.51 [facility] Comment on above: Performed By: #### L 501.1800, L501.9985, L100.0100, L500.2500 #### [facility] [address] [place], [address] Absolute Neut 7.4 X10 3/uL Normal 2.0-7.7 [facility] Comment on above: Performed By: #### L 501.1800, L501.9985, L100.0100, L500.2500 #### [facility] [address] [place], [address] Basophils/100 WBC (Bld) 0.3 % Normal 0-1 [facility] Comment on above: Performed By: #### L 501.1800, L501.9985, L100.0100, L500.2500 #### [facility] [address] [place], [address] Eosinophils/100 WBC (Bld) 0.6 % Normal 0-5 [facility] Comment on above: Performed By: #### L 501.1800, L501.9985, L100.0100, L500.2500 #### [facility] [address] [place], [address] Erythrocyte distribution width (RBC) [Ratio] 13.0 % Normal 11.6-14.6 [facility] Comment on above: Performed By: #### L 501.1800, L501.9985, L100.0100, L500.2500 #### [facility] [address] [place], [address] Hematocrit (Bld) [Volume fraction] 34.2 % Low 40-54 [facility] Comment on above: Performed By: #### L 501.1800, L501.9985, L100.0100, L500.2500 #### [facility] [address] [place], [address] Hemoglobin (Bld) [Mass/Vol] 11.2 g/dL Low 13.0-16.5 [facility] Comment on above: Performed By: #### L 501.1800, L501.9985, L100.0100, L500.2500 #### [facility] [address] [place], [address] IG% 0.400 Normal 0.0-0.9 [facility] Comment on above: Result Comment: IG% - Immature Granulocytes (promyelocytes, myelocytes and metamyelocytes) > 1% indicates that a LEFT SHIFT is Present. Performed By: #### L 501.1800, L501.9985, L100.0100, L500.2500 #### [facility] [address] [place], [address] Lymphocytes/100 WBC (Bld) 15.7 % Low 19-41 [facility] Comment on above: Performed By: #### L 501.1800, L501.9985, L100.0100, L500.2500 #### [facility] [address] [place], [address] MCH (RBC) [Entitic mass] 33.3 pg High 27.0-32.0 [facility] Comment on above: Performed By: #### L 501.1800, L501.9985, L100.0100, L500.2500 #### [facility] [address] [place], [address] MCHC (RBC) [Mass/Vol] 32.7 g/dL Normal 32-36 [facility] Comment on above: Performed By: #### L 501.1800, L501.9985, L100.0100, L500.2500 #### [facility] [address] [place], [address] MCV (RBC) [Entitic vol] 101.8 fL High 80-94 [facility] Comment on above: Performed By: #### L 501.1800, L501.9985, L100.0100, L500.2500 #### [facility] [address] [place], [address] Monocytes/100 WBC (Bld) 7.3 % Normal 0-10 [facility] Comment on above: Performed By: #### L 501.1800, L501.9985, L100.0100, L500.2500 #### [facility] [address] [place], [address] Neutrophils/100 WBC (Bld) 75.7 % High 47-70 [facility] Comment on above: Performed By: #### L 501.1800, L501.9985, L100.0100, L500.2500 #### [facility] [address] [place], [address] Nucleated RBC (Bld) [#/Vol] 0 10*3/uL Normal 0-5 [facility] Comment on above: Performed By: #### L 501.1800, L501.9985, L100.0100, L500.2500 #### [facility] [address] [place], [address] Platelet mean volume (Bld) [Entitic vol] 10.4 fL Normal 6.2-12.0 [facility] Comment on above: Performed By: #### L 501.1800, L501.9985, L100.0100, L500.2500 #### [facility] [address] [place], [address] Platelets (Bld) [#/Vol] 206 10*3/uL Normal 150-450 [facility] Comment on above: Performed By: #### L 501.1800, L501.9985, L100.0100, L500.2500 #### [facility] [address] [place], [address] RBC (Bld) [#/Vol] 3.36 10*6/uL Low 4.6-6.2 [facility] Comment on above: Performed By: #### L 501.1800, L501.9985, L100.0100, L500.2500 #### [facility] [address] [place], [address] RDW SD 48.6 fl High 35.1-43.9 [facility] Comment on above: Performed By: #### L 501.1800, L501.9985, L100.0100, L500.2500 #### [facility] [address] [place], [address] WBC (Bld) [#/Vol] 9.8 10*3/uL Normal 4.4-11.0 [facility] Comment on above: Performed By: #### L 501.1800, L501.9985, L100.0100, L500.2500 #### [facility] [address] [place], [address] Hemoglobin A1con 12-27-2023 HbA1c (Bld) [Mass fraction] 5.9 % High 3.8-5.6 [facility] Comment on above: Result Comment: Norm al < 5.7 % Prediabetic 5.7 - 6.4 % Diabetic >or= 6.5 % Please note range changes. Performed By: #### L 500.2500, M100.651, L100.0100, L501.9985, L501.1800 #### [facility] [address] [place], [address] MRSA/SAID NASAL SCREENon MRSA+SAID SCRN Negative Normal [facility] Comment on above: Performed By: #### L 500.2500, M100.651, L100.0100, L501.9985, L501.1800 #### [facility] [address] [place], [address] Albumin, Serumon 11-25-2023 Albumin [Mass/Vol] 3.3 g/dL Normal 3.2-5.0 [facility] Comment on above: Performed By: #### L 500.2500, M100.651, L100.0100, L501.9985, L501.1800 #### [facility] [address] [place], [address] Basic Metabolic Profile (BMP )on 11-25-2023 BUN/CRE 13.9 RATIO Normal 10-20 [facility] Comment on above: Performed By: #### L 500.2500, M100.651, L100.0100, L501.9985, L501.1800 #### [facility] Laboratory [address] [place], [address] CA,Total 9.4 mg/dL Normal 8.5-10.1 [facility] Comment on above: Performed By: #### L 500.2500, M100.651, L100.0100, L501.9985, L501.1800 #### [facility] Laboratory [address] [place], [address] Chloride [Moles/Vol] 112 mmol/L High 98-107 [facility] Comment on above: Performed By: #### L 500.2500, M100.651, L100.0100, L501.9985, L501.1800 #### [facility] Laboratory [address] [place], [address] CO2 [Moles/Vol] 23.0 mmol/L Normal 21.0-32.0 [facility] Comment on above: Performed By: #### L 500.2500, M100.651, L100.0100, L501.9985, L501.1800 #### [facility] Laboratory [address] [place], [address] Creatinine [Mass/Vol] 1.08 mg/dL Normal 0.70-1.30 [facility] Comment on above: Result Comment: The validity of the calculated GFR GFRAA in patients over 70 years has not been determined. Clinical correlation is essential. Performed By: #### L 500.2500, M100.651, L100.0100, L501.9985, L501.1800 #### [facility] Laboratory [address] [place], [address] EST GFR - AA 87 mL/min Normal >60 [facility] Comment on above: Result Comment: Afri can South African GFR Calc Performed By: #### L 500.2500, M100.651, L100.0100, L501.9985, L501.1800 #### [facility] Laboratory [address] [place], [address] GAP 6 Normal 5-15 [facility] Comment on above: Performed By: #### L 500.2500, M100.651, L100.0100, L501.9985, L501.1800 #### [facility] Laboratory [address] [place], [address] GFR/1.73 sq M.predicted among non-blacks MDRD (S/P/Bld) [Vol rate/Area] 72 mL/min/{1.73_m2} Normal >60 [facility] Comment on above: Result Comment: Non- GFR Calc Performed By: #### L 500.2500, M100.651, L100.0100, L501.9985, L501.1800 #### [facility] Laboratory [address] [place], [address] Glucose [Mass/Vol] 186 mg/dL High 74-106 [facility] Comment on above: Result Comment: Fast ing Glucose result greater than or equal to 126 mg/dL suggests DIABETES MELLITUS per A.D.A. criteria. Performed By: #### L 500.2500, M100.651, L100.0100, L501.9985, L501.1800 #### [facility] Laboratory [address] [place], [address] Potassium [Moles/Vol] 4.0 mmol/L Normal 3.5-5.1 [facility] Comment on above: Performed By: #### L 500.2500, M100.651, L100.0100, L501.9985, L501.1800 #### [facility] Laboratory [address] [place], [address] Sodium [Moles/Vol] 141 mmol/L Normal 136-145 [facility] Comment on above: Performed By: #### L 500.2500, M100.651, L100.0100, L501.9985, L501.1800 #### [facility] Laboratory [address] [place], [address] Urea nitrogen [Mass/Vol] 15 mg/dL Normal 7-18 [facility] Comment on above: Performed By: #### L 500.2500, M100.651, L100.0100, L501.9985, L501.1800 #### [facility] Laboratory [address] [place], [address] CBC W/Diff, Automatedon 07-2 Absolute Lymph 1.37 X10 3/uL Normal 0.83-4.51 [facility] Comment on above: Performed By: #### L 500.2500, M100.651, L100.0100, L501.9985, L501.1800 #### [facility] Laboratory [address] [place], [address] Absolute Neut 4.0 X10 3/uL Normal 2.0-7.7 [facility] Comment on above: Performed By: #### L 500.2500, M100.651, L100.0100, L501.9985, L501.1800 #### [facility] Laboratory [address] [place], [address] Basophils/100 WBC (Bld) 0.6 % Normal 0-1 [facility] Comment on above: Performed By: #### L 500.2500, M100.651, L100.0100, L501.9985, L501.1800 #### [facility] Laboratory [address] [place], [address] Eosinophils/100 WBC (Bld) 1.0 % Normal 0-5 [facility] Comment on above: Performed By: #### L 500.2500, M100.651, L100.0100, L501.9985, L501.1800 #### [facility] Laboratory [address] [place], [address] Erythrocyte distribution width (RBC) [Ratio] 14.2 % Normal 11.6-14.6 [facility] Comment on above: Performed By: #### L 500.2500, M100.651, L100.0100, L501.9985, L501.1800 #### [facility] Laboratory [address] [place], [address] Hematocrit (Bld) [Volume fraction] 37.2 % Low 40-54 [facility] Comment on above: Performed By: #### L 500.2500, M100.651, L100.0100, L501.9985, L501.1800 #### [facility] Laboratory [address] [place], [address] Hemoglobin (Bld) [Mass/Vol] 12.6 g/dL Low 13.0-16.5 [facility] Comment on above: Performed By: #### L 500.2500, M100.651, L100.0100, L501.9985, L501.1800 #### [facility] Laboratory [address] [place], [address] IG% 0.500 Normal 0.0-0.9 [facility] Comment on above: Result Comment: IG% - Immature Granulocytes (promyelocytes, myelocytes and metamyelocytes) > 1% indicates that a LEFT SHIFT is Present. Performed By: #### L 500.2500, M100.651, L100.0100, L501.9985, L501.1800 #### [facility] Laboratory [address] [place], [address] Lymphocytes/100 WBC (Bld) 21.7 % Normal 19-41 [facility] Comment on above: Performed By: #### L 500.2500, M100.651, L100.0100, L501.9985, L501.1800 #### [facility] Laboratory [address] [place], [address] MCH (RBC) [Entitic mass] 33.4 pg High 27.0-32.0 [facility] Comment on above: Performed By: #### L 500.2500, M100.651, L100.0100, L501.9985, L501.1800 #### [facility] Laboratory [address] [place], [address] MCHC (RBC) [Mass/Vol] 33.9 g/dL Normal 32-36 [facility] Comment on above: Performed By: #### L 500.2500, M100.651, L100.0100, L501.9985, L501.1800 #### [facility] Laboratory [address] [place], [address] MCV (RBC) [Entitic vol] 98.7 fL High 80-94 [facility] Comment on above: Performed By: #### L 500.2500, M100.651, L100.0100, L501.9985, L501.1800 #### [facility] Laboratory [address] [place], [address] Monocytes/100 WBC (Bld) 12.2 % High 0-10 [facility] Comment on above: Performed By: #### L 500.2500, M100.651, L100.0100, L501.9985, L501.1800 #### [facility] [address] [place], [address] Neutrophils/100 WBC (Bld) 64.0 % Normal 47-70 [facility] Comment on above: Performed By: #### L 500.2500, M100.651, L100.0100, L501.9985, L501.1800 #### [facility] Laboratory [address] [place], [address] Nucleated RBC (Bld) [#/Vol] 0 10*3/uL Normal 0-5 [facility] Comment on above: Performed By: #### L 500.2500, M100.651, L100.0100, L501.9985, L501.1800 #### [facility] Laboratory [address] [place], [address] Platelet mean volume (Bld) [Entitic vol] 11.0 fL Normal 6.2-12.0 [facility] Comment on above: Performed By: #### L 500.2500, M100.651, L100.0100, L501.9985, L501.1800 #### [facility] Laboratory [address] [place], [address] Platelets (Bld) [#/Vol] 217 10*3/uL Normal 150-450 [facility] Comment on above: Performed By: #### L 500.2500, M100.651, L100.0100, L501.9985, L501.1800 #### [facility] Laboratory [address] [place], [address] RBC (Bld) [#/Vol] 3.77 10*6/uL Low 4.6-6.2 [facility] Comment on above: Performed By: #### L 500.2500, M100.651, L100.0100, L501.9985, L501.1800 #### [facility] Laboratory [address] [place], [address] RDW SD 51.0 fl High 35.1-43.9 [facility] Comment on above: Performed By: #### L 500.2500, M100.651, L100.0100, L501.9985, L501.1800 #### [facility] Laboratory [address] [place], [address] WBC (Bld) [#/Vol] 6.3 10*3/uL Normal 4.4-11.0 [facility] Comment on above: Performed By: #### L 500.2500, M100.651, L100.0100, L501.9985, L501.1800 #### [facility] Laboratory [address] [place], [address] Hemoglobin A1con 11-25-2023 HbA1c (Bld) [Mass fraction] 7.1 % High 3.8-5.6 [facility] Comment on above: Result Comment: Norm al < 5.7 % Prediabetic 5.7 - 6.4 % Diabetic >or= 6.5 % Please note range changes. Performed By: #### L 500.2500, M100.651, L100.0100, L501.9985, L501.1800 #### [facility] Laboratory [address] [place], [address] ECG B/O W INTERP (MED OFFICE )on 11-08-2023 Interpretation and review of laboratory results Normal [facility] Normal sinus rhythm at [address]. [address] abnormality. [facility] Karen 11-02-2023 CNPN Telephone ([employer]) ---- AARON ELKINS ([id number]) 1950 M Date Time Provider Department 11/02/23 DIONICIO SIMON During your visit today, we recorded the following information about you: Michelle Rai 11/02/2023 1:29 PM Signed Ryan called, and he is scheduled for a total hip replacement on December 15. This is being done by Dr. Peter Eastman with [facility] [place]. Dr. Eastman recommended that Ryan inform Dr. Simon of his upcoming surgery. Ryan said his health has been well, and he personally has no concerns. Could someone from Dr. Simon's team contact Ryan and let him know if he has any specific recommendations with regards to the hip replacement procedure? Thank you, Michelle Rai Allergies As of Date: 11/02/2023 (No Known Allergies) Date Reviewed: 02/10/2023 Reviewed by: Dionicio Simon MD - Fully Assessed Reason for Visit: Patient Question [3646] Prescriptions as of 11/03/2023 - metoprolol succinate ER (TOPROL XL) 50 mg 24 hr tablet Take 1 tablet by mouth once daily - losartan (COZAAR) 25 mg tablet Take 1 tablet by mouth once daily - isosorbide mononitrate ER (IMDUR) 60 mg 24 hr tablet Take 1 tablet by mouth once daily. - nitroglycerin sublingual (NITROQUICK) 0.4 mg SL tablet Dissolve 1 tablet under the tongue every 5 minutes as needed for chest pain. Max 3. If no pain relief call 911. - atorvastatin (LIPITOR) 80 mg tablet Take 1 tablet by mouth daily at bedtime. - cholecalciferol (VITAMIN D3) 1,000 unit tab tablet Take by mouth. - glimepiride (AMARYL) 1 mg tablet Take 1 tablet by mouth once daily. Home medication dose verified with pharmacy - metFORMIN (GLUCOPHAGE) 1,000 mg tablet Take 1 tablet by mouth twice daily. home medication - allopurinol (ZYLOPRIM) 100 mg tablet Take 1 tablet by mouth twice daily. home medication - ASPIRIN 81 MG TAB Take one(1) tablet daily. Problem List As Of Date 11/02/2023 Noted Resolved BPH W URINARY OBS/LUTS [N40.1, N13.8] 01/27/2007 PEYRONIE'S DISEASE [N48.6] 01/27/2007 IMPOTENCE, ORGANIC ORIGN [N52.9] 01/12/2008 Bladder Neck Obstruction [N32.0] 12/05/2009 Acute coronary syndrome (HCC) [I24.9] 11/23/2020 11/26/2020 Controlled type 2 diabetes mellitus with circul*11/24/[address] elevation myocardial infarction (STEMI*11/24/2020 Pre-op testing [Z01.818] 11/26/2020 11/27/2020 Primary hypertension [I10] 11/26/2020 11/26/2020 Coronary artery disease involving [place] per[place]*11/26/2020 Hyperlipidemia [E78.5] 05/13/2021 Myocardial infarction (HCC) [I21.9] 05/13/2021 Encounter Status:Closed by MICHELLE RAI on 11/03/23 Normal [facility] Basophil percentageOrdered B y: Jose Haynes on 04-07-2023 Chloride [Moles/Vol] 107 mmol/L 98-107 [facility] Glucose [Mass/Vol] 150 mg/dL 74-106 [facility] Comment on above: Fasting Glucose resu lt greater than or equal to 126 mg/dL suggests DIABETES MELLITUS per A.D.A. criteria. Potassium [Moles/Vol] 4.7 mmol/L 3.5-5.1 [facility] Sodium [Moles/Vol] 136 mmol/L 136-145 [facility] Laboratory - Chemistry and C hemistry - challengeOrdered By: Jose Haynes on 04-07-2023 CO2 [Moles/Vol] 24.0 mmol/L 21.0-32.0 [facility] Urea nitrogen/Creatinine [Mass ratio] 16.3 mg/mg 10-20 [facility] No Panel InformationOrdered By: Jose Haynes on 04-07-2023 Estimated GFR (MDRD) Amer 67 mL/min >60 [facility] Comment on above: GFR Calc Estimated GFR (MDRD) Non-Af Amer 55 mL/min >60 [facility] Comment on above: Non- GFR Calc Thyroid Stimulating Hormone (TSH) 4.57 uIU/mL 0.358-3.74 [facility] Serum or plasma calcium guanako urement (mass/volume)Ordered By: Jose Haynes on 04-07-2023 Calcium [Mass/Vol] 9.9 mg/dL 8.5-10.1 [facility] Serum or plasma creatinine m easurement (mass/volume)Ordered By: Jose Haynes on 04-07-2023 Creatinine [Mass/Vol] 1.35 mg/dL 0.70-1.30 [facility] Comment on above: The validity of the calculated GFR & GFRAA in patients over 70 years has not been determined. Clinical correlation is essential. Serum or plasma urea nitroge n measurement (mass/volume)Ordered By: Jose Haynes on 04-07-2023 Urea nitrogen [Mass/Vol] 22 mg/dL 7-18 [facility] Thin prep Papanicolaou smear with manual screeningOrdered By: Jose Haynes on 04-07-2023 Thin prep Papanicolaou smear with manual screening 5 5-15 [facility] No Panel InformationOrdered By: Fitz Marie on 03-10-2023 Prostate Specific Antigen Screen 0.34 ng/mL 0.00-4.00 [facility] Comment on above: This test was perfor med using the TPSA assay method for the[employer] chemistry system. Values obtained with differentassay methods cannot be used interchangably.When changing PSA assays in the course of monitoring apatient, additional sequential testing should be carriedout to confirm baseline values. Karen 02-22-2023 RADHA Telephone (CARDWW) ---- AARON ELKINS ([id number]) 1950 M Date Time Provider Department 02/22/23 DIONICIO SIMON During your visit today, we recorded the following information about you: Michelle Rai 02/22/2023 10:06 AM Signed Ryan called with a question about his prescription, could someone call him back? He said he is returning a call. Thank you, Lianet Bass, VALERIE 02/22/2023 11:09 AM Addendum Called patient to let him know we don't see any calls from the office this morning, just a refill request that is pending. No answer. Left message on voicemail. Allergies As of Date: 02/22/2023 (No Known Allergies) Date Reviewed: 02/10/2023 Reviewed by: Dionicio Simon MD - Fully Assessed Reason for Visit: Patient Question [5047] Prescriptions as of 02/22/2023 - metoprolol succinate ER (TOPROL XL) 50 mg 24 hr tablet Take 1 tablet by mouth once daily. - nitroglycerin sublingual (NITROQUICK) 0.4 mg SL tablet Dissolve 1 tablet under the tongue every 5 minutes as needed for chest pain. Max 3. If no pain relief call 911. - losartan (COZAAR) 25 mg tablet Take 1 tablet by mouth once daily. - isosorbide mononitrate ER (IMDUR) 60 mg 24 hr tablet Take 1 tablet by mouth once daily. - atorvastatin (LIPITOR) 80 mg tablet Take 1 tablet by mouth daily at bedtime. - cholecalciferol (VITAMIN D3) 1,000 unit tab tablet Take by mouth. - glimepiride (AMARYL) 1 mg tablet Take 1 tablet by mouth once daily. Home medication dose verified with pharmacy - metFORMIN (GLUCOPHAGE) 1,000 mg tablet Take 1 tablet by mouth twice daily. home medication - allopurinol (ZYLOPRIM) 100 mg tablet Take 1 tablet by mouth twice daily. home medication - ASPIRIN 81 MG TAB Take one(1) tablet daily. Problem List As Of Date 02/22/2023 Noted Resolved BPH W URINARY OBS/LUTS [N40.1, N13.8] 01/27/2007 PEYRONIE'S DISEASE [N48.6] 01/27/2007 IMPOTENCE, ORGANIC ORIGN [N52.9] 01/12/2008 Bladder Neck Obstruction [N32.0] 12/05/2009 Acute coronary syndrome (HCC) [I24.9] 11/23/2020 11/26/2020 Controlled type 2 diabetes mellitus with circul*11/24/[address] elevation myocardial infarction (STEMI*11/24/2020 Pre-op testing [Z01.818] 11/26/2020 11/27/2020 Primary hypertension [I10] 11/26/2020 11/26/2020 Coronary artery disease involving [place]*11/26/2020 Hyperlipidemia [E78.5] 05/13/2021 Myocardial infarction (HCC) [I21.9] 05/13/2021 Encounter Status:Closed by LIANET MANUEL on 02/22/23 [facility] CNOVon 02-10-2023 CNOV Office Visit (CARDWW) ---- DEONAARON Shaw ([id number]) 1950 Date Time Provider Department 02/10/23 9:40 AM DIONICIO SIMON CARDChristineW During your visit today, we recorded the following information about you: Pulse Blood pressure Weight Height 60/minute 130/60 76.7 kg 1.778 m Dionicio Simon MD 02/10/2023 10:01 AM Signed Chief Complaint: Patient presents with: Follow Up: Coronary Artery Disease History of Present Illness: Aaron Mednia McKenzie is a 71 year old male with history of essential hypertension, diabetes who had an AL in October 2020 upon admission at [facility]. His initial symptoms were chest tightness with radiation into both arms which went away after a brief. Of time. Few hours later when he woke up from sleep he had jaw pain which prompted him to go to the emergency room. There he had an EKG done which showed ST depression in the anterior leads. Posterior EKG showed ST elevation which prompted emergent heart catheterization. This showed three-vessel disease and he was transferred to [facility] for further treatment recommendations. He was evaluated by CT surgery and NETWORK CONTRACT MANAGER clinical specialist who felt that he did not have good targets for bypass surgery and there were no viable PCI options due to diffuse nature of disease and small blood vessels he was treated medically. Initially there was a plan to recommend him for the EXACT trial (Epicardial delivery of XC001 gene therapy for Refractory Angina Coronary Treatment) but as he did not have any anginal symptoms he was not determined to be a candidate. He saw the panel cutter in January of last year at the main campus but then decided to switch closer to home so he has come to establish with me today. He says since his hospital discharge he has been doing well without any symptoms of chest pain shortness of breath palpitations lightheadedness syncope orthopnea PND or leg edema. Patient walks on a daily basis and does not have any cardiac symptoms during these exertional activities. 07/01/2022: Patient denies any chest pain shortness of breath palpitations lightheadedness syncope orthopnea PND or leg edema. Patient says he walks on a daily basis and denies any cardiac symptoms while doing so. 02/10/2023: Patient denies any chest pain shortness of breath palpitations lightheadedness syncope orthopnea PND or leg edema. 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 No pertinent surgical history. History reviewed. No pertinent family history. Social History Tobacco Use Smoking status: Never Smokeless tobacco: Never Vaping Use Vaping Use: Never used Substance Use Topics Alcohol use: No Drug use: No Current Outpatient Medications Medication Sig allopurinol (ZYLOPRIM) 100 mg tablet Take 1 tablet by mouth twice daily. home medication ASPIRIN 81 MG TAB Take one(1) tablet daily. atorvastatin (LIPITOR) 80 mg tablet Take 1 tablet by mouth daily at bedtime. cholecalciferol (VITAMIN D3) 1,000 unit tab tablet Take by mouth. glimepiride (AMARYL) 1 mg tablet Take 1 tablet by mouth once daily. Home medication dose verified with pharmacy isosorbide mononitrate ER (IMDUR) 60 mg 24 hr tablet Take 1 tablet by mouth once daily. losartan (COZAAR) 25 mg tablet Take 1 tablet by mouth once daily. metFORMIN (GLUCOPHAGE) 1,000 mg tablet Take 1 tablet by mouth twice daily. home medication metoprolol succinate ER (TOPROL XL) 50 mg 24 hr tablet Take 1 tablet by mouth once daily. nitroglycerin sublingual (NITROQUICK) 0.4 mg SL tablet Dissolve 1 tablet under the tongue every 5 minutes as needed for chest pain. Max 3. If no pain relief call 911. No current facility-administer ed medications for this visit. ALLERGIES No Known Allergies Review of Systems: General: No weight loss, malaise, fevers, chills, or night sweats HEENT: Negative for epistaxis Neck: Negative for pain and significant neck swelling Respiratory: Negative for cough, shortness of breath at rest or on exertion, wheezing Cardiac: Negative history of chest pain on exertion, dyspnea on exertion, orthopnea, paroxysmal nocturnal dyspnea, lower extremity edema, presyncope, syncope, or palpitations Gastrointestinal: Negative history of abdominal pain, nausea, vomiting, constipation, diarrhea, melena, or hematochezia Urinary: Negative history of dysuria, hematuria, or frequency Peripheral vascular: No claudication Musculoskeletal: Negative for rachel (more content not included)... Normal [facility] Glucose Glucometer (BldC) [M ass/Vol]Ordered By: Dr. Jones on 09-02-2022 Glucose [Mass/Vol] 193 mg/dL 74-106 [facility] Comment on above: MANAGEMENT OF PATIEN T CARE PER NURSING PROTOCOL No Panel InformationOrdered By: Dr. Garcia on 09-02-2022 Troponin I High Sensitivity 6 pg/mL 3.0-78.0 [facility] Comment on above: Please Note: New [place] t Units and Gender Specific Reference Ranges. For more information see Policy Stat Procedure [place] High Sensitivity Troponin (TNIH) and attachments. Basophil percentageOrdered B y: Dr. Jones on 08-27-2022 WBC (Bld) [#/Vol] 7.0 10*3/uL 4.4-11.0 [facility] Blood erythrocytes count (nu mber/volume)Ordered By: Dr. Jones on 08-27-2022 RBC (Bld) [#/Vol] 4.16 10*6/uL 4.6-6.2 [facility] Blood hemoglobin measurement (mass/volume)Ordered By: Dr. Jones on 08-27-2022 Hemoglobin (Bld) [Mass/Vol] 14.1 g/dL 13.0-16.5 [facility] Blood platelet mean volumeOr dered By: Dr. Jones on 08-27-2022 Platelet mean volume (Bld) [Entitic vol] 10.9 fL 6.2-12.0 [facility] Determination of erythrocyte mean corpuscular volume (MCV)Ordered By: Dr. Jones on 08-27-2022 MCV (RBC) [Entitic vol] 98.1 fL 80-94 [facility] Hematocrit Auto (Bld) [Volum e fraction]Ordered By: Dr. Jones on 08-27-2022 Hematocrit (Bld) [Volume fraction] 40.8 % 40-54 [facility] Laboratory - Hematology and Cell countsOrdered By: Dr. Jones on 08-27-2022 Erythrocyte distribution width (RBC) [Entitic vol] 47.2 fL 35.1-43.9 [facility] Erythrocyte distribution width (RBC) [Ratio] 13.3 % 11.6-14.6 [facility] [facility] MCH (RBC) [Entitic mass] 33.9 pg 27.0-32.0 [facility] MCHC Auto (RBC) [Mass/Vol]Or dered By: Dr. Jones on 08-27-2022 MCHC (RBC) [Mass/Vol] 34.6 g/dL 32-36 [facility] Platelets bldOrdered By: Dr. Jones on 08-27-2022 Platelets (Bld) [#/Vol] 191 10*3/uL 150-450 [facility] Whole blood hemoglobin A1c/t otal hemoglobin ratio (mass fraction)Ordered By: Dr. Garcia on 08-27-2022 HbA1c (Bld) [Mass fraction] 5.9 % 3.8-5.6 [facility] Comment on above: Normal < 5.7 % Predi abetic 5.7 - 6.4 % Diabetic >or= 6.5 % Please note range changes. Basophil percentageOrdered B y: Dr. Haynes on 08-24-2022 Chloride [Moles/Vol] 108 mmol/L 98-107 [facility] Cholesterol [Mass/Vol] 89 mg/dL <200 [facility] Comment on above: <200 mg/dL Desirable 200-240 mg/dL Borderline >240 mg/dL High Risk Glucose [Mass/Vol] 190 mg/dL 74-106 [facility] Comment on above: Fasting Glucose resu lt greater than or equal to 126 mg/dL suggests DIABETES MELLITUS per A.D.A. criteria. Potassium [Moles/Vol] 4.8 mmol/L 3.5-5.1 [facility] Sodium [Moles/Vol] 135 mmol/L 136-145 [facility] Triglyceride [Mass/Vol] 111 mg/dL <199 [facility] Comment on above: The drugs N-Acetylcy steine and Metamizole may falsely depress this assay.Serum Triglycerides Reference Interval Normal <150 mg/dL Borderline high 150 - 199 mg/dL High 200 - 499 mg/dL Very High > or = 500 mg/dL Laboratory - Chemistry and C hemistry - challengeOrdered By: Dr. Haynes on 08-24-2022 CO2 [Moles/Vol] 26.0 mmol/L 21.0-32.0 [facility] Free T4 [Mass/Vol] 0.89 ng/dL 0.76-1.46 [facility] Urea nitrogen/Creatinine [Mass ratio] 15.8 mg/mg 10-20 [facility] No Panel InformationOrdered By: Dr. Haynes on 08-24-2022 Estimated GFR (MDRD) Amer 68 mL/min >60 [facility] Comment on above: GFR Calc Estimated GFR (MDRD) Non-Af Amer 56 mL/min >60 [facility] Comment on above: Non- GFR Calc Thyroid Stimulating Hormone (TSH) 3.67 uIU/mL 0.358-3.74 [facility] Serum or plasma calcium guanako urement (mass/volume)Ordered By: Dr. Haynes on 08-24-2022 Calcium [Mass/Vol] 9.5 mg/dL 8.5-10.1 [facility] Serum or plasma cholesterol in HDL measurement (mass/volume)Ordered By: Dr. Haynes on 08-24-2022 Cholesterol in HDL [Mass/Vol] 34 mg/dL >40 [facility] Comment on above: The drugs N-Acetylcy steine and Metamizole may falsely depress this assay. Reference Range HDL <40 mg/dL Low HDL Cholesterol HDL >or= 60 mg/dL High HDL Cholesterol Serum or plasma cholesterol in VLDL measurement (mass/volume)Ordered By: Dr. Haynes on 08-24-2022 Cholesterol in VLDL [Mass/Vol] 22 mg/dL 5-40 [facility] Serum or plasma creatinine m easurement (mass/volume)Ordered By: Dr. Haynes on 08-24-2022 Creatinine [Mass/Vol] 1.33 mg/dL 0.70-1.30 [facility] Comment on above: The validity of the calculated GFR & GFRAA in patients over 70 years has not been determined. Clinical correlation is essential. Serum or plasma low density lipoprotein (LDL) cholesterol measurement (mass/volume)Ordered By: Dr. Haynes on 08-24-2022 Cholesterol in LDL [Mass/Vol] 33 mg/dL 0-130 [facility] Serum or plasma urea nitroge n measurement (mass/volume)Ordered By: Dr. Haynes on 08-24-2022 Urea nitrogen [Mass/Vol] 21 mg/dL 7-18 [facility] Thin prep Papanicolaou smear with manual screeningOrdered By: Dr. Haynes on 08-24-2022 Thin prep Papanicolaou smear with manual screening 1 5-15 [facility] CNPNon 07-22-2022 CNPN Telephone (AGCARDPOB) ---- AARON ELKINS ([id number]) 1950 M Date Time Provider Department 07/22/22 DIONICIO SIMON During your visit today, we recorded the following information about you: Siri Walker LPN 07/22/2022 1:44 PM Signed Clearance form received from [facility]. Form placed in Dr. Simon's door box, form also scanned in. Siri Walker LPN Allergies As of Date: 07/22/2022 (No Known Allergies) Date Reviewed: 07/01/2022 Reviewed by: Dionicio Simon MD - Fully Assessed Reason for Visit: Cardiac Clearance [4105] Prescriptions as of 01/12/2023 - metoprolol succinate ER (TOPROL XL) 50 mg 24 hr tablet Take 1 tablet by mouth once daily. - nitroglycerin sublingual (NITROQUICK) 0.4 mg SL tablet Dissolve 1 tablet under the tongue every 5 minutes as needed for chest pain. Max 3. If no pain relief call 911. - losartan (COZAAR) 25 mg tablet Take 1 tablet by mouth once daily. - isosorbide mononitrate ER (IMDUR) 60 mg 24 hr tablet Take 1 tablet by mouth once daily. - atorvastatin (LIPITOR) 80 mg tablet Take 1 tablet by mouth daily at bedtime. - clopidogrel (PLAVIX) 75 mg tablet Take 1 tablet by mouth once daily. - cholecalciferol (VITAMIN D3) 1,000 unit tab tablet Take by mouth. - glimepiride (AMARYL) 1 mg tablet Take 1 tablet by mouth once daily. Home medication dose verified with pharmacy - metFORMIN (GLUCOPHAGE) 1,000 mg tablet Take 1 tablet by mouth twice daily. home medication - allopurinol (ZYLOPRIM) 100 mg tablet Take 1 tablet by mouth twice daily. home medication - ASPIRIN 81 MG TAB Take one(1) tablet daily. Problem List As Of Date 07/22/2022 Noted Resolved BPH W URINARY OBS/LUTS [N40.1, N13.8] 01/27/2007 PEYRONIE'S DISEASE [N48.6] 01/27/2007 IMPOTENCE, ORGANIC ORIGN [N52.9] 01/12/2008 Bladder Neck Obstruction [N32.0] 12/05/2009 Acute coronary syndrome (HCC) [I24.9] 11/23/2020 11/26/2020 Controlled type 2 diabetes mellitus with circul*11/24/[address] elevation myocardial infarction (STEMI*11/24/2020 Pre-op testing [Z01.818] 11/26/2020 11/27/2020 Primary hypertension [I10] 11/26/2020 11/26/2020 Coronary artery disease involving [place]*11/26/2020 Hyperlipidemia [E78.5] 05/13/2021 Myocardial infarction (HCC) [I21.9] 05/13/2021 Encounter Status:Closed by SIRI WALKER on 01/12/23 [facility] Basophil percentageOrdered B y: Dr. Haynes on 05-19-2022 Chloride [Moles/Vol] 104 mmol/L 98-107 [facility] Cholesterol [Mass/Vol] 107 mg/dL <200 [facility] Comment on above: <200 mg/dL Desirable 200-240 mg/dL Borderline >240 mg/dL High Risk Glucose [Mass/Vol] 138 mg/dL 74-106 [facility] Comment on above: Fasting Glucose resu lt greater than or equal to 126 mg/dL suggests DIABETES MELLITUS per A.D.A. criteria. Potassium [Moles/Vol] 4.7 mmol/L 3.5-5.1 [facility] Sodium [Moles/Vol] 140 mmol/L 136-145 [facility] Triglyceride [Mass/Vol] 144 mg/dL <199 [facility] Comment on above: The drugs N-Acetylcy steine and Metamizole may falsely depress this assay.Serum Triglycerides Reference Interval Normal <150 mg/dL Borderline high 150 - 199 mg/dL High 200 - 499 mg/dL Very High > or = 500 mg/dL Laboratory - Chemistry and C hemistry - challengeOrdered By: Dr. Haynes on 05-19-2022 CO2 [Moles/Vol] 27.0 mmol/L 21.0-32.0 [facility] Free T4 [Mass/Vol] 0.89 ng/dL 0.76-1.46 [facility] Urea nitrogen/Creatinine [Mass ratio] 13.3 mg/mg 10-20 [facility] No Panel InformationOrdered By: Dr. Haynes on 05-19-2022 Estimated GFR (MDRD) Amer 77 mL/min >60 [facility] Comment on above: GFR Calc Estimated GFR (MDRD) Non-Af Amer 64 mL/min >60 [facility] Comment on above: Non- GFR Calc Thyroid Stimulating Hormone (TSH) 3.75 uIU/mL 0.358-3.74 [facility] Serum or plasma calcium guanako urement (mass/volume)Ordered By: Dr. Haynes on 05-19-2022 Calcium [Mass/Vol] 9.6 mg/dL 8.5-10.1 [facility] Serum or plasma cholesterol in HDL measurement (mass/volume)Ordered By: Dr. Haynes on 05-19-2022 Cholesterol in HDL [Mass/Vol] 38 mg/dL >40 [facility] Comment on above: The drugs N-Acetylcy steine and Metamizole may falsely depress this assay. Reference Range HDL <40 mg/dL Low HDL Cholesterol HDL >or= 60 mg/dL High HDL Cholesterol Serum or plasma cholesterol in VLDL measurement (mass/volume)Ordered By: Dr. Haynes on 05-19-2022 Cholesterol in VLDL [Mass/Vol] 29 mg/dL 5-40 [facility] Serum or plasma creatinine m easurement (mass/volume)Ordered By: Dr. Haynes on 05-19-2022 Creatinine [Mass/Vol] 1.20 mg/dL 0.70-1.30 [facility] Comment on above: The validity of the calculated GFR & GFRAA in patients over 70 years has not been determined. Clinical correlation is essential. Serum or plasma low density lipoprotein (LDL) cholesterol measurement (mass/volume)Ordered By: Dr. Haynes on 05-19-2022 Cholesterol in LDL [Mass/Vol] 40 mg/dL 0-130 [facility] Serum or plasma urea nitroge n measurement (mass/volume)Ordered By: Dr. Haynes on 05-19-2022 Urea nitrogen [Mass/Vol] 16 mg/dL 7-18 [facility] Thin prep Papanicolaou smear with manual screeningOrdered By: Dr. Haynes on 05-19-2022 Thin prep Papanicolaou smear with manual screening 9 5-15 [facility] No Panel InformationOrdered By: Dr. Marie on 03-05-2022 Prostate Specific Antigen Screen 0.32 ng/mL 0.00-4.00 [facility] Comment on above: This test was perfor med using the TPSA assay method for themenon chemistry system. Values obtained with differentassay methods cannot be used interchangably.When changing PSA assays in the course of monitoring apatient, additional sequential testing should be carriedout to confirm baseline values. Laboratory - Chemistry and C hemistry - challengeOrdered By: Dr. Haynes on 02-16-2022 Free T4 [Mass/Vol] 0.86 ng/dL 0.76-1.46 [facility] No Panel InformationOrdered By: Dr. Haynes on 02-16-2022 Thyroid Stimulating Hormone (TSH) 3.77 uIU/mL 0.358-3.74 [facility] Absolute lymphocyte counton 11-21-2021 Lymphocytes Auto (Unsp spec) [#/Vol] 1.92 10*3/uL 0.83-4.51 [facility] Work Phone: Basophil percentageon 2021 Basophils/100 WBC (Bld) 0.3 % 0-1 [facility] Work Phone: Bilirubin [Mass/Vol] 0.70 mg/dL 0.20-1.00 [facility] Work Phone: Comment on above: For patients on eltr ombopag therapy, use of Dimension [place] TBIL is not recommended. Chloride [Moles/Vol] 108 mmol/L 98-107 [facility] Work Phone: Cholesterol [Mass/Vol] 81 mg/dL <200 [facility] Work Phone: Comment on above: <200 mg/dL Desirable 200-240 mg/dL Borderline >240 mg/dL High Risk Eosinophils/100 WBC (Bld) 0.9 % 0-5 [facility] Work Phone: Glucose [Mass/Vol] 154 mg/dL 74-106 [facility] Work Phone: Comment on above: Fasting Glucose resu lt greater than or equal to 126 mg/dL suggests DIABETES MELLITUS per A.D.A. criteria. Neutrophils (Bld) [#/Vol] 4.1 10*3/uL 2.0-7.7 [facility] Work Phone: Neutrophils/100 WBC (Bld) 60.4 % 47-70 [facility] Work Phone: Potassium [Moles/Vol] 4.1 mmol/L 3.5-5.1 [facility] Work Phone: Protein [Mass/Vol] 7.3 g/dL 6.4-8.2 [facility] Work Phone: Sodium [Moles/Vol] 140 mmol/L 136-145 [facility] Work Phone: Triglyceride [Mass/Vol] 121 mg/dL <199 [facility] Work Phone: Comment on above: The drugs N-Acetylcy steine and Metamizole may falsely depress this assay.Serum Triglycerides Reference Interval Normal <150 mg/dL Borderline high 150 - 199 mg/dL High 200 - 499 mg/dL Very High > or = 500 mg/dL WBC (Bld) [#/Vol] 6.8 10*3/uL 4.4-11.0 [facility] Work Phone: Blood erythrocytes count (nu mber/volume)on 11-21-2021 RBC (Bld) [#/Vol] 3.91 10*6/uL 4.6-6.2 [facility] Work Phone: Blood hemoglobin measurement (mass/volume)on 11-21-2021 Hemoglobin (Bld) [Mass/Vol] 13.3 g/dL 13.0-16.5 [facility] Work Phone: Blood lymphocytes/100 leukoc yteson 11-21-2021 Lymphocytes/100 WBC (Bld) 28.1 % 19-41 [facility] Work Phone: Blood monocytes/100 leukocyt eson 11-21-2021 Monocytes/100 WBC (Bld) 9.9 % 0-10 [facility] Work Phone: Blood platelet mean volumeon 11-21-2021 Platelet mean volume (Bld) [Entitic vol] 11.3 fL 6.2-12.0 [facility] Work Phone: Determination of erythrocyte mean corpuscular volume (MCV)on 11-21-2021 MCV (RBC) [Entitic vol] 100.0 fL 80-94 [facility] Work Phone: Hematocrit Auto (Bld) [Volum e fraction]on 11-21-2021 Hematocrit (Bld) [Volume fraction] 39.1 % 40-54 [facility] Work Phone: Laboratory - Chemistry and C hemistry - challengeon 11-21-2021 ALP [Catalytic activity/Vol] 72 U/L 45-117 [facility] Work Phone: ALT [Catalytic activity/Vol] 25 U/L 16-61 [facility] Work Phone: CO2 [Moles/Vol] 23.0 mmol/L 21.0-32.0 [facility] Work Phone: Cobalamin (Vitamin B12) [Mass/Vol] 181 pg/mL 211-911 [facility] Work Phone: Free T4 [Mass/Vol] 0.99 ng/dL 0.76-1.46 [facility] Work Phone: Globulin (S) [Mass/Vol] 3.7 g/dL 2.2-4.2 [facility] Work Phone: Urea nitrogen/Creatinine [Mass ratio] 18.1 mg/mg 10-20 [facility] Work Phone: [phone] Laboratory - Hematology and Cell countson 11-21-2021 Erythrocyte distribution width (RBC) [Entitic vol] 48.8 fL 35.1-43.9 [facility] Work Phone: Erythrocyte distribution width (RBC) [Ratio] 13.2 % 11.6-14.6 [facility] Work Phone: Immature granulocytes/100 WBC (Bld) 0.400 % 0.0-0.9 [facility] Work Phone: [phone] Comment on above: IG% - Immature Granu locytes (promyelocytes, myelocytes and metamyelocytes) > 1% indicates that a LEFT SHIFT is Present. MCH (RBC) [Entitic mass] 34.0 pg 27.0-32.0 [facility] Work Phone: Nucleated RBC/100 WBC (Bld) [Ratio] 0 % 0-5 [facility] Work Phone: MCHC Auto (RBC) [Mass/Vol]on 11-21-2021 MCHC (RBC) [Mass/Vol] 34.0 g/dL 32-36 [facility] Work Phone: No Panel Informationon 11-21 Estimated GFR (MDRD) Amer 80 mL/min >60 [facility] Work Phone: Comment on above: GFR Calc Estimated GFR (MDRD) Non-Af Amer 66 mL/min >60 [facility] Work Phone: Comment on above: Non- GFR Calc Thyroid Stimulating Hormone (TSH) 4.31 uIU/mL 0.358-3.74 [facility] Work Phone: Platelets bldon 11-21-2021 Platelets (Bld) [#/Vol] 174 10*3/uL 150-450 [facility] Work Phone: Serum or plasma albumin guanako urement (mass/volume)on 11-21-2021 Albumin [Mass/Vol] 3.6 g/dL 3.2-5.0 [facility] Work Phone: Serum or plasma albumin/glob ulin mass ratioon 11-21-2021 Albumin/Globulin [Mass ratio] 1.0 {ratio} 0.9-2.4 [facility] Work Phone: Serum or plasma calcium guanako urement (mass/volume)on 11-21-2021 Calcium [Mass/Vol] 8.9 mg/dL 8.5-10.1 [facility] Work Phone: Serum or plasma cholesterol in HDL measurement (mass/volume)on 11-21-2021 Cholesterol in HDL [Mass/Vol] 32 mg/dL >40 [facility] Work Phone: Comment on above: The drugs N-Acetylcy steine and Metamizole may falsely depress this assay. Reference Range HDL <40 mg/dL Low HDL Cholesterol HDL >or= 60 mg/dL High HDL Cholesterol Serum or plasma cholesterol in VLDL measurement (mass/volume)on 11-21-2021 Cholesterol in VLDL [Mass/Vol] 24 mg/dL 5-40 [facility] Work Phone: Serum or plasma creatinine m easurement (mass/volume)on 11-21-2021 Creatinine [Mass/Vol] 1.16 mg/dL 0.70-1.30 [facility] Work Phone: Comment on above: The validity of the calculated GFR & GFRAA in patients over 70 years has not been determined. Clinical correlation is essential. Serum or plasma low density lipoprotein (LDL) cholesterol measurement (mass/volume)on 11-21-2021 Cholesterol in LDL [Mass/Vol] 25 mg/dL 0-130 [facility] Work Phone: Serum or plasma urea nitroge n measurement (mass/volume)on 11-21-2021 Urea nitrogen [Mass/Vol] 21 mg/dL 7-18 [facility] Work Phone: Serum or plasma uric acid me asurement (mass/volume)on 11-21-2021 Urate [Mass/Vol] 5.5 mg/dL 3.5-7.2 [facility] Work Phone: Comment on above: The drugs N-Acetylcy steine and Metamizole may falsely depress this assay. Thin prep Papanicolaou smear with manual screeningon 11-21-2021 Thin prep Papanicolaou smear with manual screening 15 U/L 15-37 [facility] Work Phone: Thin prep Papanicolaou smear with manual screening 9 5-15 [facility] Work Phone: Absolute lymphocyte counton 08-25-2021 Lymphocytes Auto (Unsp spec) [#/Vol] 1.93 10*3/uL 0.83-4.51 [facility] Work Phone: Basophil percentageon 2021 Basophils/100 WBC (Bld) 0.4 % 0-1 [facility] Work Phone: Bilirubin [Mass/Vol] 0.90 mg/dL 0.20-1.00 [facility] Work Phone: Comment on above: For patients on eltr ombopag therapy, use of Dimension [place] TBIL is not recommended. Chloride [Moles/Vol] 103 mmol/L 98-107 [facility] Work Phone: Cholesterol [Mass/Vol] 98 mg/dL <200 [facility] Work Phone: Comment on above: <200 mg/dL Desirable 200-240 mg/dL Borderline >240 mg/dL High Risk Eosinophils/100 WBC (Bld) 0.8 % 0-5 [facility] Work Phone: Glucose [Mass/Vol] 185 mg/dL 74-106 [facility] Work Phone: Comment on above: Fasting Glucose resu lt greater than or equal to 126 mg/dL suggests DIABETES MELLITUS per A.D.A. criteria. Neutrophils (Bld) [#/Vol] 4.8 10*3/uL 2.0-7.7 [facility] Work Phone: Neutrophils/100 WBC (Bld) 62.9 % 47-70 [facility] Work Phone: Potassium [Moles/Vol] 4.8 mmol/L 3.5-5.1 [facility] Work Phone: Protein [Mass/Vol] 7.6 g/dL 6.4-8.2 [facility] Work Phone: Sodium [Moles/Vol] 135 mmol/L 136-145 [facility] Work Phone: Triglyceride [Mass/Vol] 151 mg/dL <199 [facility] Work Phone: Comment on above: The drugs N-Acetylcy steine and Metamizole may falsely depress this assay.Serum Triglycerides Reference Interval Normal <150 mg/dL Borderline high 150 - 199 mg/dL High 200 - 499 mg/dL Very High > or = 500 mg/dL WBC (Bld) [#/Vol] 7.6 10*3/uL 4.4-11.0 [facility] Work Phone: Blood erythrocytes count (nu mber/volume)on 08-25-2021 RBC (Bld) [#/Vol] 4.11 10*6/uL 4.6-6.[address] [facility] Work Phone: Blood hemoglobin measurement (mass/volume)on 08-25-2021 Hemoglobin (Bld) [Mass/Vol] 13.5 g/dL 13.0-16.5 [facility] Work Phone: Blood lymphocytes/100 leukoc yteson 08-25-2021 Lymphocytes/100 WBC (Bld) 25.3 % 19-41 [facility] Work Phone: Blood monocytes/100 leukocyt eson 08-25-2021 Monocytes/100 WBC (Bld) 10.1 % 0-10 [facility] Work Phone: Blood platelet mean volumeon 08-25-2021 Platelet mean volume (Bld) [Entitic vol] 11.2 fL 6.2-12.0 [facility] Work Phone: Determination of erythrocyte mean corpuscular volume (MCV)on 08-25-2021 MCV (RBC) [Entitic vol] 97.8 fL 80-94 [facility] Work Phone: Hematocrit Auto (Bld) [Volum e fraction]on 08-25-2021 Hematocrit (Bld) [Volume fraction] 40.2 % 40-54 [facility] Work Phone: Laboratory - Chemistry and C hemistry - challengeon 08-25-2021 ALP [Catalytic activity/Vol] 87 U/L 45-117 [facility] Work Phone: ALT [Catalytic activity/Vol] 31 U/L 16-61 [facility] Work Phone: CO2 [Moles/Vol] 24.0 mmol/L 21.0-32.0 [facility] Work Phone: Cobalamin (Vitamin B12) [Mass/Vol] 216 pg/mL 211-911 [facility] Work Phone: Globulin (S) [Mass/Vol] 3.7 g/dL 2.2-4.2 [facility] Work Phone: Urea nitrogen/Creatinine [Mass ratio] 19.2 mg/mg 10-20 [facility] Work Phone: Laboratory - Hematology and Cell countson 08-25-2021 Erythrocyte distribution width (RBC) [Entitic vol] 47.9 fL 35.1-43.9 [facility] Work Phone: Erythrocyte distribution width (RBC) [Ratio] 13.4 % 11.6-14.6 [facility] Work Phone: Immature granulocytes/100 WBC (Bld) 0.500 % 0.0-0.9 [facility] Work Phone: Comment on above: IG% - Immature Granu locytes (promyelocytes, myelocytes and metamyelocytes) > 1% indicates that a LEFT SHIFT is Present. MCH (RBC) [Entitic mass] 32.8 pg 27.0-32.0 [facility] Work Phone: Nucleated RBC/100 WBC (Bld) [Ratio] 0 % 0-5 [facility] Work Phone: MCHC Auto (RBC) [Mass/Vol]on 08-25-2021 MCHC (RBC) [Mass/Vol] 33.6 g/dL 32-36 [facility] Work Phone: No Panel Informationon 08-25 Estimated GFR (MDRD) Amer 74 mL/min >60 [facility] Work Phone: Comment on above: GFR Calc Estimated GFR (MDRD) Non-Af Amer 61 mL/min >60 [facility] Work Phone: Comment on above: Non- GFR Calc Thyroid Stimulating Hormone (TSH) 3.68 uIU/mL 0.358-3.74 [facility] Work Phone: Platelets bldon 08-25-2021 Platelets (Bld) [#/Vol] 190 10*3/uL 150-450 [facility] Work Phone: Serum or plasma albumin guanako urement (mass/volume)on 08-25-2021 Albumin [Mass/Vol] 3.9 g/dL 3.2-5.0 [facility] Work Phone: Serum or plasma albumin/glob ulin mass ratioon 08-25-2021 Albumin/Globulin [Mass ratio] 1.1 {ratio} 0.9-2.4 [facility] Work Phone: Serum or plasma calcium guanako urement (mass/volume)on 08-25-2021 Calcium [Mass/Vol] 9.0 mg/dL 8.5-10.1 [facility] Work Phone: Serum or plasma cholesterol in HDL measurement (mass/volume)on 08-25-2021 Cholesterol in HDL [Mass/Vol] 33 mg/dL >40 [facility] Work Phone: Comment on above: The drugs N-Acetylcy steine and Metamizole may falsely depress this assay. Reference Range HDL <40 mg/dL Low HDL Cholesterol HDL >or= 60 mg/dL High HDL Cholesterol Serum or plasma cholesterol in VLDL measurement (mass/volume)on 08-25-2021 Cholesterol in VLDL [Mass/Vol] 30 mg/dL 5-40 [facility] Work Phone: Serum or plasma creatinine m easurement (mass/volume)on 08-25-2021 Creatinine [Mass/Vol] 1.25 mg/dL 0.70-1.30 [facility] Work Phone: Comment on above: The validity of the calculated GFR & GFRAA in patients over 70 years has not been determined. Clinical correlation is essential. Serum or plasma low density lipoprotein (LDL) cholesterol measurement (mass/volume)on 08-25-2021 Cholesterol in LDL [Mass/Vol] 35 mg/dL 0-130 [facility] Work Phone: Serum or plasma urea nitroge n measurement (mass/volume)on 08-25-2021 Urea nitrogen [Mass/Vol] 24 mg/dL 7-18 [facility] Work Phone: Serum or plasma uric acid me asurement (mass/volume)on 08-25-2021 Urate [Mass/Vol] 5.6 mg/dL 3.5-7.2 [facility] Work Phone: Comment on above: The drugs N-Acetylcy steine and Metamizole may falsely depress this assay. Thin prep Papanicolaou smear with manual screeningon 08-25-2021 Thin prep Papanicolaou smear with manual screening 16 U/L 15-37 [facility] Work Phone: Thin prep Papanicolaou smear with manual screening 8 5-15 [facility] Work Phone: Vital Signs Date Time Vital Sign Value Performing Clinician Faci lity 01-15-2025 14:52-0400 Body temperature 97.8 [degF] Dr. Sonia Haynes MD Work Phone: [facility] 01-15-2025 14:52-0400 Diastolic blood pressure 88 mm[Hg] Dr. Sonia Haynes MD Work Phone: [facility] 01-15-2025 14:52-0400 Heart rate 68 /min Dr. Sonia Haynes MD Work Phone: [facility] 01-15-2025 14:52-0400 Respiratory rate 18 /min Dr. Sonia Haynes MD Work Phone: [facility] 01-15-2025 14:52-0400 SaO2% (BldA) [Mass fraction] 100 % Dr. Sonia Haynes MD Work Phone: [facility] 01-15-2025 14:52-0400 Systolic blood pressure 168 mm[Hg] Dr. Sonia Haynes MD Work Phone: [facility] 01-15-2025 10:57-0400 Body height 177.[address] Sonia Haynes MD Work Phone: [facility] 01-15-2025 10:57-0400 Body mass index (BMI) [Ratio] 24.8 kg/m2 Dr. Sonia Haynes MD Work Phone: [facility] 01-15-2025 10:57-0400 Body weight 78.[address] Sonia Haynes MD Work Phone: [facility] 11-08-2023 08:31-0400 Body mass index (BMI) [Ratio] 23.39 kg/m2 Dionicio Simon MD Work Phone: [facility] 11-08-2023 08:31-0400 Body weight 73.94 kg Dionicio Simon MD Work Phone: [facility] 11-08-2023 08:31-0400 Diastolic blood pressure 88 mm[Hg] Dionicio Simon MD Work Phone: [facility] 11-08-2023 08:31-0400 Heart rate 69 /min Dionicio Simon MD Work Phone: [facility] 11-08-2023 08:31-0400 SaO2% (BldA) [Mass fraction] 99 % Dionicio Simon MD Work Phone: [facility] 11-08-2023 08:31-0400 Systolic blood pressure 145 mm[Hg] Dionicio Simon MD Work Phone: [facility] 02-10-2023 09:49-0400 Diastolic blood pressure 60 mm[Hg] Dionicio Simon MD Work Phone: [facility] 02-10-2023 09:49-0400 Systolic blood pressure 130 mm[Hg] Dionicio Simon MD Work Phone: [facility] 02-10-2023 09:29-0400 Body height 177.8 cm Dionicio Simon MD Work Phone: [facility] 02-10-2023 09:29-0400 Body weight 76.66 kg Dionicio Simon MD Work Phone: [facility] 02-10-2023 09:29-0400 Heart rate 60 /min Dionicio Simon MD Work Phone: [facility] 02-10-2023 09:29-0400 SaO2% (BldA) [Mass fraction] 99 % Dionicio Simon MD Work Phone: [facility] 09-02-2022 16:59-0400 Diastolic blood pressure 89 mm[Hg] Dr. Jose Haynes Work Phone: [facility] 09-02-2022 16:59-0400 Heart rate 88 /min Dr. Jose Haynes Work Phone: [facility] 09-02-2022 16:59-0400 Respiratory rate 18 /min Dr. Jose Haynes Work Phone: [facility] 09-02-2022 16:59-0400 SaO2% (BldA) [Mass fraction] 97 % Dr. Jose Haynes Work Phone: [facility] 09-02-2022 16:59-0400 Systolic blood pressure 159 mm[Hg] Dr. Jose Haynes Work Phone: [facility] 09-02-2022 16:00-0400 Body temperature 97.8 [degF] Dr. Jose Haynes Work Phone: [facility] 09-02-2022 06:36-0400 Body height 177.[address] Jose Haynes Work Phone: [facility] 09-02-2022 06:36-0400 Body mass index (BMI) [Ratio] 23.5 kg/m2 Dr. Jose Haynes Work Phone: [facility] 09-02-2022 06:36-0400 Body weight 74.[address] Jose Haynes Work Phone: [facility] 08-27-2022 07:33-0400 Body height 177.[address] Jose Haynes Work Phone: [facility] 08-27-2022 07:33-0400 Body mass index (BMI) [Ratio] 23.7 kg/m2 Dr. Jose Haynes Work Phone: [facility] 08-27-2022 07:33-0400 Body temperature 96.6 [degF] Dr. Jose Haynes Work Phone: 3(983)204-190375 [address] 08-27-2022 07:33-0400 Body weight 75.[address] Jose Haynes Work Phone: 6(775)305-250418 [place] [address] 08-27-2022 07:33-0400 Diastolic blood pressure 58 mm[Hg] Dr. Jose Haynes Work Phone: 1(850)884-297018 [place] [address] 08-27-2022 07:33-0400 Heart rate 60 /min Dr. Jose Haynes Work Phone: 2(624)367-369375 [address] 08-27-2022 07:33-0400 Respiratory rate 18 /min Dr. Jose Haynes Work Phone: 0(583)362-249418 [place] [address] 08-27-2022 07:33-0400 SaO2% (BldA) [Mass fraction] 97 % Dr. Jose Haynes Work Phone: 5(644)692-558375 [address] 08-27-2022 07:33-0400 Systolic blood pressure 106 mm[Hg] Dr. Jose Haynes Work Phone: [facility] 07-16-2022 08:46-0400 Body mass index (BMI) [Ratio] 23.7 kg/m2 Dr. Jose Haynes Work Phone: 5(792)298-105950 [place] [address] 07-16-2022 08:46-0400 Body weight 75.[address] Jose Haynes Work Phone: 9(434)127-561950 [place] [address] 07-16-2022 08:46-0400 Diastolic blood pressure 79 mm[Hg] Dr. Jose Haynes Work Phone: 8(785)306-220550 [place] [address] 07-16-2022 08:46-0400 Respiratory rate 18 /min Dr. Jose Haynes Work Phone: [facility] 07-16-2022 08:46-0400 Systolic blood pressure 173 mm[Hg] Dr. Jose Haynes Work Phone: [facility] 07-01-2022 08:01-0500 Body height 177.8 cm Dionicio Simon MD Work Phone: [facility] 07-01-2022 08:01-0500 Body weight 73.03 kg Dionicio Simon MD Work Phone: [facility] 07-01-2022 08:01-0500 Diastolic blood pressure 66 mm[Hg] Dionicio Simon MD Work Phone: [facility] 07-01-2022 08:01-0500 Heart rate 54 /min Dionicio Simon MD Work Phone: [facility] 07-01-2022 08:01-0500 SaO2% (BldA) [Mass fraction] 99 % Dionicio Simon MD Work Phone: [facility] 07-01-2022 08:01-0500 Systolic blood pressure 127 mm[Hg] Dionicio Simon MD Work Phone: [facility] Encounters Encounter Date Encounter Type Care Provider Facility Start: 01-15-2025 End: 01-15-2025 Emergency department patient visit Dr. Sonia Haynes MD Work Phone: -Emergency Department Work Phone: Start: 11-09-2024 End: 11-09-2024 Refill Dionicio Simon MD Work Phone: Cardiology Comment on above: Refill Request Start: 11-09-2024 End: 11-09-2024 Telephone encounter Dionicio Simon MD Work Phone: [facility] Start: 10-31-2024 End: 10-31-[address] Sonia Haynes MD Work Phone: -[facility] Start: 10-31-2024 End: 10-31-[address] Sonia Haynes MD -Laboratory [place] Work Phone: Start: 10-31-2024 End: 10-31-2024 [facility] Start: 04-25-2024 End: 04-25-2024 Refill Dionicio Simon MD Work Phone: [facility] Comment on above: Refill Request Start: 03-13-2024 End: 03-13-2024 ambulatory [facility] Facility:[facility] Start: 01-31-2024 End: 01-31-2024 Refill Dionicio Simon MD Work Phone: Cardiology Comment on above: Refill Request Start: 01-11-2024 Encounter for other preprocedural examination Mj Eastman [facility] Start: 12-27-2023 End: 12-27-2023 ambulatory [facility] Facility:[facility] Start: 12-02-2023 Refill Dionicio Simon MD Work Phone: Cardiology Comment on above: Refill Request Start: 11-25-2023 End: 11-25-2023 ambulatory [facility] Facility:[facility] Start: 11-08-2023 Telephone encounter Dionicio Werner i, MD Work Phone: [facility] [place] Start: 11-08-2023 End: 11-08-2023 Patient encounter procedure Dionicio Simon MD Work Phone: [facility] [place] Comment on above: Pre-operative cardio vascular examination (Primary Dx); Coronary artery disease involving [place] coronary artery of [place] heart without angina pectoris; Cardiomyopathy, ischemic Start: 11-08-2023 End: 11-08-2023 Patient encounter status Dionicio Simon MD Work Phone: [facility] Start: 11-02-2023 Telephone encounter Dionicio Simon MD Work Phone: Cardiology Comment on above: Patient Question Start: 09-05-2023 Refill Dionicio Simon MD Work Phone: Cardiology Comment on above: Refill Request Start: 04-07-2023 End: 04-07-2023 ambulatory [facility] Work Phone: Start: 04-07-2023 End: 04-07-2023 Patient encounter procedure [facility] Start: 03-10-2023 End: 03-10-2023 ambulatory [facility] Work Phone: Start: 03-10-2023 End: 03-10-2023 Patient encounter procedure [facility]Laboratory Work Phone: Start: 02-22-2023 Telephone encounter Dionicio Werner i, MD Work Phone: Cardiology Comment on above: Patient Question Start: 02-10-2023 End: 02-10-2023 ambulatory DIONICIO SIMON Facility:[facility] Start: 02-10-2023 End: 02-10-2023 Patient encounter procedure Dionicio Simon MD Work Phone: Cardiology Comment on above: Coronary artery dise ase involving [place] coronary artery of [place] heart without angina pectoris (Primary Dx); Cardiomyopathy, ischemic Start: 09-02-2022 Non-patient / Non-visit Dr. Magalis Haynes Work Phone: [facility] Start: 09-02-2022 End: 09-02-2022 Admission to same day surgery center Dr. Jose Haynes Work Phone: [facility] Start: 09-02-2022 End: 09-02-[address] Jose Haynes Work Phone: [facility] Work Phone: Start: 08-27-2022 End: 08-27-[address] Jose Haynes Work Phone: [facility] Start: 08-27-2022 End: 08-27-2022 Non-patient / Non-visit Dr. Jose Haynes Work Phone: [facility] Start: 08-24-2022 End: 08-24-[address] Jose Haynes Work Phone: [facility] Work Phone: Start: 08-24-2022 End: 08-24-[address] [facility] Start: 08-10-2022 Telephone encounter Dionicio Simon MD Work Phone: Cardiology Comment on above: Medication Problem Start: 07-22-2022 Telephone encounter Dionicio Werner i, MD Work Phone: [facility] [place] Comment on above: Cardiac Clearance Start: 07-16-2022 End: 07-16-[address] Jose Haynes Work Phone: [facility] Start: 07-01-2022 End: 07-01-2022 Patient encounter procedure Dionicio Simon MD Work Phone: Cardiology Comment on above: Coronary artery dise ase involving [place] coronary artery of [place] heart without angina pectoris (Primary Dx); Cardiomyopathy, ischemic Start: 05-19-2022 End: 05-19-2022 ambulatory [facility] Work Phone: Start: 05-19-2022 End: 05-19-2022 Patient encounter procedure [facility] Start: 05-11-2022 End: 05-11-2022 Refill Dionicio Simon MD Work Phone: [facility] Comment on above: Refill Request Start: 05-11-2022 End: 05-11-2022 Patient encounter procedure [facility] Start: 05-07-2022 Registered [facility] - Other Staff Start: 04-09-2022 Telephone encounter Dionicio Werner i, MD Work Phone: Cardiology Comment on above: Appointment Start: 03-05-2022 End: 03-05-2022 [facility] Start: 02-16-2022 End: 02-16-2022 ambulatory [facility] Work Phone: Start: 02-16-2022 End: 02-16-2022 Patient encounter procedure [facility] Start: 01-09-2022 Refill Dionicio Simon MD Work Phone: Cardiology Comment on above: Refill Request Start: 11-21-2021 End: 11-21-2021 Patient encounter procedure [facility] Start: 09-09-2021 Telephone encounter Dionicio Werner i, MD Work Phone: Cardiology Comment on above: Patient Question Start: 08-25-2021 End: 08-25-2021 Patient encounter procedure [facility] Start: 08-18-2021 Refill Dionicio Simon MD Work Phone: Cardiology Comment on above: Refill Request Start: 11-26-2020 End: 11-27-2020 Patient encounter status Dionicio Simon MD Work Phone: [facility] Procedures Date Procedure Procedure Detail Performing Clinician Start: 01-15-2025 CT angiography of ch est with contrast Dr. Sonia Haynes MD Work Phone: Start: 01-15-2025 D-dimer assay, quantitative Dr. Sonia Haynes MD Work Phone: Comment on above: CRITICAL VALUE MIGUEL D TO FRANK RN01/15/25 1302 Ilene Goodrich.RESULTS READ BACK BY SAME. D-Dimer ELEVATED (>0.49): Additional studies and clinicalassessments are indicated to conclude diagnosis of:Deep Vein Thrombosis (DVT) or Pulmonary Embolism (PE) Start: 01-15-2025 Urnls dip stick/tabl et reagent auto microscopy Dr. Sonia Haynes MD Work Phone: Start: 01-15-2025 Plain chest X-ray Dr. Basilia Haynes MD Work Phone: Start: 01-15-[address] Sonia Haynes MD Work Phone: Start: 10-31-2024 X-ray of cervical spine Dr. Sonia Haynes MD Work Phone: Start: 11-08-2023 Ecg routine ecg w/le ast 12 lds w/i&r Dionicio Simon MD Work Phone: Start: 09-02-2022 Laparoscopic, Inguin al Hernia Repair (Bilateral) Dr. Jose Haynes Work Phone: Start: 07-01-2022 Ecg routine ecg w/le ast 12 lds i&r only [facility] Provider Start: 05-11-2022 MRI of joint of lowe r extremity Start: 01-13-2008 Colonoscopy Dionicio Simon MD Work Phone: Plan of Treatment Date Care Activity Detail Author Start: 02-07-2027 RSV Vaccine (1 - 1-dose 75+ series) RSV Vaccine (1 - 1-dose 75+ series) [facility] Start: 02-07-2025 End: 02-07-2025 Patient encounter procedure 02/07/2025 1:00 PM EDT Office Visit Cardiology [address] [facility] [place] [address] Dionicio Simon MD [address] [place], [place] [id number] Overdue 1 year f/u Cardiology Comment on above: Overdue 1 year f/u Start: 01-15-2025 [facility] Start: 01-15-2025 [facility] Start: 01-01-2025 Influenza vaccination Influenza Vaccine (#1) [facility] Start: 05-03-2024 Advance Directive Discussion Advance Directive Discussion [facility] Start: 02-23-2024 End: 02-23-2024 Patient encounter procedure 02/23/2024 3:00 PM EDT Office Visit Cardiology 1 [facility] [place] [address] Dionicio Simon MD [address] [place], [place] [id number] Follow up Coronary artery disease involving [place] coronary artery of [place] heart without... Cardiology Comment on above: Follow up Coronary artery disease involv ing [place] coronary artery of [place] heart without... Start: 01-02-2024 Covid-19 Vaccine ( season) Covid-19 Vaccine () [facility] Start: 01-02-2024 Influenza vaccination [facility] Start: 11-08-2023 End: 11-08-2023 Patient encounter procedure 11/08/2023 10:00 AM EDT Office Visit [facility] [address] [place] [address] Dionicio Simon MD [address] [place] [address] Appointment to review cardiac health prior to upcoming hip replacement--Coronary artery disease involving [place] coronary artery of [place] heart without... [facility] Comment on above: Appointment to review cardiac health [place] or to upcoming hip replacement--Coronary artery disease involving [place] coronary artery of [place] heart without... Start: 06-28-2023 Covid-19 Vaccine () Covid-19 Vaccine () [facility] Start: 05-03-2023 Advance Directive Discussion Advance Directive Discussion [facility] Start: 05-03-2023 Behavioral Health Screening Behavioral Health Screening [facility] Start: 01-01-2023 Covid-19 Vaccine () Covid-19 Vaccine () [facility] Start: 01-01-2023 Influenza vaccination Influenza Vaccine (#1) [facility] Start: 09-03-2022 Patient discharge [facility] Start: 06-03-2022 Covid-19 Vaccine (7 - Pfizer series) Covid-19 Vaccine (7 - Pfizer series) [facility] Start: 05-03-2022 ADVANCE DIRECTIVE DISCUSSION ADVANCE DIRECTIVE DISCUSSION [facility] Start: 05-03-2022 DEPRESSION ASSESSMENT DEPRESSION ASSESSMENT [facility] Start: 01-01-2022 Influenza vaccination INFLUENZA (#1) [facility] Start: 11-24-2021 Hepatitis B surface antibody level LDL CHOLESTEROL [facility] Start: 06-10-2021 COVID-19 VACCINE (4 - Booster for Pfizer series) COVID-19 VACCINE (4 - Booster for Pfizer series) [facility] Start: 05-26-2021 Hemoglobin A1c measurement HbA1C [facility] Start: 05-26-2021 Hemoglobin A1c/Hemoglobin.total in Blood HBA1C [facility] Start: 05-03-2021 ADVANCE DIRECTIVE DISCUSSION ADVANCE DIRECTIVE DISCUSSION [facility] Start: 05-03-2021 DEPRESSION ASSESSMENT DEPRESSION ASSESSMENT [facility] Start: 04-04-2021 COVID-19 VACCINE (4 - Booster for Pfizer series) COVID-19 VACCINE (4 - Booster for Pfizer series) [facility] Start: 07-01-2017 Medicare Annual Wellness Visit Medicare Annual Wellness Visit [facility] Start: 02-07-2017 PNEUMOVAX AGE 65 AND OVER WITH 5YR LOOKBACK (#1) PNEUMOVAX AGE 65 AND OVER WITH 5YR LOOKBACK (#1) [facility] Start: 01-12-2013 Colonoscopy COLONOSCOPY [facility] Start: 01-12-2013 COLORECTAL CANCER SCREENING COLORECTAL CANCER SCREENING [facility] Start: 01-12-2013 Screening for malignant neoplasm of colon [facility] Start: 2012 Hepatitis B Vaccine (1 of 3 - Risk 3-dose series) Hepatitis B Vaccine (1 of 3 - Risk 3-dose series) [facility] Start: 2012 RSV Vaccine (1 - 1-dose 60+ series) RSV Vaccine (1 - 1-dose 60+ series) [facility] Start: 02-07-2002 SHINGRIX VACCINE (1 of 2) SHINGRIX VACCINE (1 of 2) [facility] Start: 02-07-1997 COLOGUARD (FIT-DNA) COLOGUARD (FIT-DNA) [facility] Start: 02-07-[address] COLONOGRAPHY [facility] Start: 02-07-1997 FECAL OCCULT BLOOD FECAL OCCULT BLOOD [facility] Start: 02-07-1997 Screening for malignant neoplasm of colon [facility] Start: 02-07-1997 SIGMOIDOSCOPY SIGMOIDOSCOPY [facility] Start: 02-07-1971 Urine microalbumin profile [facility] Start: 02-07-1970 ANNUAL PCP TEAM CHRONIC DISEASE VISIT ANNUAL PCP TEAM CHRONIC DISEASE VISIT [facility] Start: 02-07-1970 Anxiety Screening Anxiety Screening [facility] Start: 02-07-1970 Depression Screening Depression Screening [facility] Start: 02-07-1970 HEPATITIS C SCREENING HEPATITIS C SCREENING [facility] Start: 02-07-1970 Hepatitis C screening Hepatitis C Screening [facility] Start: 1964 Adult depression screening assessment DEPRESSION SCREENING [facility] Start: 02-07-1962 3 comp foot exam completed DIABETIC FOOT EXAM [facility] Start: 02-07-1962 Diabetic foot examination Diabetic Foot Exam [facility] Start: 02-07-1962 Glaucoma screening Dilated Retinal Exam [facility] Start: 02-07-1962 Hepatitis B screening URINE ALBUMIN:CREATININE RATIO [facility] Start: 02-07-1962 Hepatitis C antibody, confirmatory test DILATED RETINAL EXAM [facility] Start: 02-07-1958 Pneumococcal Vaccine: 65+ (1 - PCV) Pneumococcal Vaccine: 65+ (1 - PCV) [facility] Start: 02-07-1958 PNEUMOCOCCAL: 65+ (1 - PCV) PNEUMOCOCCAL: 65+ (1 - PCV) [facility] End: 06-26-2023 ECG COMPLETE ECG COMPLETE ECG Routine Coronary artery disease involving [place] coronary artery of [place] heart without angina pectoris 1 Occurrences starting 07/01/2022 until 06/26/2023 [facility] Work Phone: Comment on above: 1 Occurrences starting 07/01/2022 until 06/26/2023 ECG COMPLETE ECG COMPLETE ECG 07/01/2022 8:05 AM EST [facility] Electrocardiographic procedure [facility] Patient Education ED Neck Sprain or Strain ED Fainting, Uncertain Cause [facility] Work Phone: Patient referral [facility] Work Phone: [facility] Immunizations Immunization Date Immunization Notes Care Provider Fa jacobo 04-07-2023 influenza virus vaccine, unspecified formulation Dionicio Simon MD Work Phone: [facility] 02-25-2023 Covid (Spikevax) [facility] 02-19-2022 influenza virus vaccine, unspecified formulation Dionicio Simon MD Work Phone: [facility] 07-25-2020 COVID-19 vaccine, ag e 12+ yr (PFIZER-BIONTECH - PURPLE TOP) Dionicio Simon MD Work Phone: [facility] 07-04-2020 COVID-19 vaccine, ag e 12+ yr (PFIZER-BIONTECH - PURPLE TOP) Dionicio Simon MD Work Phone: [facility] Payers Date Payer Category Payer Self-pay [id number] 2020 Private Health Insurance [facility] [facility] [id number] 2020-Present [phone] [address] [place] [address] HMO [id number] 2020 Private Health Insurance [facility] CHOICE PLUS [id number] 2020-Present [phone] [address] [place] [address] HMO [id number] 2018 [facility] ANTHEM ME DICARE SUPPLEMENT [id number] 2018 Unknown ANTHEM ANTHEM ME DICARE SUPPLEMENT [id number] 2018-Present [phone] [address] [place] [address] Indemnity [id number] 2018 Unknown ANTHEM ANTHEM ME DICARE SUPPLEMENT [id number] 2018-Present [phone] [address] [place] [address] Indemnity [id number] 2018 Unknown [id number] 2017 Medicare MEDICARE MEDICAR E A AND B [id number] 2017-Present [phone] [place] [address] Medicare [id number] 2017 Medicare [id number] 2017 Medicare [id number] 2015 Private Health Insurance [facility] [id number] Unknown [id number] Unknown [id number] Unknown [id number] Unknown [id number] Social History Date Type Detail Facility Start: 01-30-2021 End: 01-15-2025 Tobacco smoking status NHIS Never smoked tobacco [facility] Start: 05-14-2021 End: 11-08-2023 Alcohol intake Current non-drinker of alcohol (finding) [facility] Start: 1950 Sex Assigned At Not on file [facility] Start: 11-23-2020 End: 08-27-2022 Tobacco smoking status WAIS Unknown if ever smoked [facility] Start: 11-28-2019 Non-smoker [facility] Start: 1950 Sex Assigned At Male [facility] Start: 01-30-2021 End: 11-08-2023 Tobacco use and exposure Smokeless tobacco non-user [facility] Start: 11-23-2020 End: 07-01-2022 History of Social function [facility] Start: 11-23-2020 End: 07-01-2022 Tobacco use panel [facility] National Score (1-100), lower number is lower risk Not on file [facility] Medical Equipment Procedure Code Equipment Code Equipment Origin al Text Equipment Identifier Dates ASYMMETRIC PATELLA FDA Start: 12-13-2019 CEMENT,BONE CARLOS H 1/2 BATCH FDA Start: 12-13-2019 POSTERIOR STABIL IZED FEMORAL FDA Start: 12-13-2019 TIBIAL BEARING INSERT - PS FDA Start: 12-13-2019 TIBIAL COMPONENT FDA Start: 12-13-2019 ASYMMETRIC PATELLA FDA Start: 12-13-2019 CEMENT,BONE CARLOS H 1/2 BATCH FDA Start: 12-13-2019 POSTERIOR STABIL IZED FEMORAL FDA Start: 12-13-2019 TIBIAL BEARING INSERT - PS FDA Start: 12-13-2019 TIBIAL COMPONENT FDA Start: 12-13-2019 ASYMMETRIC PATELLA FDA Start: 12-13-2019 CEMENT,BONE CARLOS H 1/2 BATCH FDA Start: 12-13-2019 POSTERIOR STABIL IZED FEMORAL FDA Start: 12-13-2019 TIBIAL BEARING INSERT - PS FDA Start: 12-13-2019 TIBIAL COMPONENT FDA Start: 12-13-2019 ASYMMETRIC PATELLA FDA Start: 12-13-2019 CEMENT,BONE CARLOS H 1/2 BATCH FDA Start: 12-13-2019 POSTERIOR STABIL IZED FEMORAL FDA Start: 12-13-2019 TIBIAL BEARING INSERT - PS FDA Start: 12-13-2019 TIBIAL COMPONENT FDA Start: 12-13-2019 ASYMMETRIC PATELLA FDA Start: 12-13-2019 CEMENT,BONE CARLOS H 1/2 BATCH FDA Start: 12-13-2019 POSTERIOR STABIL IZED FEMORAL FDA Start: 12-13-2019 TIBIAL BEARING INSERT - PS FDA Start: 12-13-2019 TIBIAL COMPONENT FDA Start: 12-13-2019 ASYMMETRIC PATELLA FDA Start: 12-13-2019 CEMENT,BONE CARLOS H 1/2 BATCH FDA Start: 12-13-2019 POSTERIOR STABIL IZED FEMORAL FDA Start: 12-13-2019 TIBIAL BEARING INSERT - PS FDA Start: 12-13-2019 TIBIAL COMPONENT FDA Start: 12-13-2019 ASYMMETRIC PATELLA FDA Start: 12-13-2019 CEMENT,BONE CARLOS H 1/2 BATCH FDA Start: 12-13-2019 POSTERIOR STABIL IZED FEMORAL FDA Start: 12-13-2019 TIBIAL BEARING INSERT - PS FDA Start: 12-13-2019 TIBIAL COMPONENT FDA Start: 12-13-2019 ASYMMETRIC PATELLA FDA Start: 12-13-2019 CEMENT,BONE CARLOS H 1/2 BATCH FDA Start: 12-13-2019 POSTERIOR STABIL IZED FEMORAL FDA Start: 12-13-2019 TIBIAL BEARING INSERT - PS FDA Start: 12-13-2019 TIBIAL COMPONENT FDA Start: 12-13-2019 ([id number] Extra-gynaecolog ical surgical mesh, synthetic polymer, non-bioabsorbable ()[id number] FDA Start: 09-02-2022 ([id number]) Extra-gynaecolog ical surgical mesh, synthetic polymer, non-bioabsorbable [id number] FDA Start: 09-02-2022 Endoscopic manua l linear stapler ()[id number] FDA Start: 09-02-2022 Ligation clip, synthetic polymer, non-bioabsorbable ()[id number] FDA Start: 09-02-2022 ASYMMETRIC PATELLA FDA Start: 12-13-2019 CEMENT,BONE CARLOS H 1/2 BATCH FDA Start: 12-13-2019 POSTERIOR STABIL IZED FEMORAL FDA Start: 12-13-2019 TIBIAL BEARING INSERT - PS FDA Start: 12-13-2019 TIBIAL COMPONENT FDA Start: 12-13-2019 ASYMMETRIC PATELLA FDA Start: 12-13-2019 CEMENT,BONE CARLOS H 1/2 BATCH FDA Start: 12-13-2019 POSTERIOR STABIL IZED FEMORAL FDA Start: 12-13-2019 TIBIAL BEARING INSERT - PS FDA Start: 12-13-2019 TIBIAL COMPONENT FDA Start: 12-13-2019 ASYMMETRIC PATELLA FDA Start: 12-13-2019 CEMENT,BONE CARLOS H 1/2 BATCH FDA Start: 12-13-2019 POSTERIOR STABIL IZED FEMORAL FDA Start: 12-13-2019 TIBIAL BEARING INSERT - PS FDA Start: 12-13-2019 TIBIAL COMPONENT FDA Start: 12-13-2019 Goals Date Patient Goal Desired Activity /State Personal health goal Functional Status Date Assessment Result Facility 12-01-2020 Are you deaf, or do you have serious difficulty hearing No 12/01/2020 3:00 PM EDT Blanca Lyles, VALERIE No [facility] 12-01-2020 Are you blind, or do you have serious difficulty seeing, even when wearing glasses No 12/01/2020 3:00 PM EDT Blanca Lyles, VALERIE No [facility] 12-01-2020 Do you have serious difficulty walking or climbing stairs No 12/01/2020 3:00 PM EDT Blanca Lyles RN No [facility] 12-01-2020 Do you have difficul ty dressing or bathing No 12/01/2020 3:00 PM EDT Blanca Lyles, VALERIE No [facility] 12-01-2020 Because of a physica l, mental, or emotional condition, do you have difficulty doing errands alone such as visiting a physician's office or shopping No 12/01/2020 3:00 PM EDT Blanca Lyles RN No [facility] Mental Status Date Assessment Result Facility 01-15-2025 Cognitive function Level Of Cons ciousness Awake;Alert;Appropriate;Fol lows Commands [facility] Work Phone: 09-02-2022 Cognitive function Awake;Alert;Appropriat e [facility] Work Phone: 09-02-2022 Cognitive function Arousable To Voice/Nam e [facility] Work Phone: 12-01-2020 Because of a physica l, mental, or emotional condition, do you have serious difficulty concentrating, remembering, or making decisions No 12/01/2020 3:00 PM EDBlanca Stauffer, VALERIE No [facility] Clinical Notes 11-26-2020 to 01-15-2025 Note Date & Type Note Facility 01-15-2025 Discharge summary [facility] 01-15-2025 Discharge summary Note Date/Time January 15, 2025 3:05pm [facility] Medical Records Department [address] [place] [address] Emergency Department Summary 01/15/25 MR#: [id number] Acct: [id number] Name: AARON ELKINS Rep #:[id number] : 1950 74 From: Gina Medina PCP: Dr. Sonia Haynes MD Status :REG ER Location: ED HPI History of Present Illness Chief Complaint: Syncope Informant: patient Narrative Narrative: Patient is a 74-year-old male with history of coronary artery disease, hyperlipidemia, diabetes mellitus and reports multivessel heart disease (has notreceived a stent or CABG in the past) presenting for syncopal episode. 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 He states he felt fine when he woke up this morning. He showed up to the main entrance and felt like he was going to pass out. He was lowered to the ground by a bystander and then did become unconscious. Rapid response was called. When nursing staff arrived they state he was diaphoretic and pale. He notes he since feels like he is back to normal. He does note that at beginning this month he was on a cruise to [place] and after the cruise they drove around [place] for a bit. He notes symptoms and he was having some pain in the right neck that radiates to his shoulder blade that he has been dealing with and he also got a cold while traveling and has been having some nasal congestion. He has been taking ibuprofen for his neck pain. Been taking euxr-ehr-[id number] medications for the congestion. No other complaints or concerns at this time. Denies any chest pain or shortness of breath. Denies any significant cough. Denies any swelling of his legs. Denieshistory of DVT or PE. Denies any black or blood in his stool. No other complaints or concerns at this time. Follows with cardiology in [place]. Patient underwent cardiac catheterization for concern of ACS on 11/23/2020. STEMI alert at that time was called. He was found to have moderate arthrosclerosis large dominant RCA that is very tortuous and calcified as well as diffuse arthrosclerosis involving the entire LAD as well as multiple segmental lesions of the left circumflex. Because of complex coronary artery anatomy was treated medically and transferred to [facility] for concern of needing CABG. Patient ultimately did not receive CABG. [facility] Medical History Wears glasses High cholesterol Non-smoker History of echocardiogram Cardiology follow-up encounter History of heart attack Urinary retention Bilateral inguinal hernia without obstruction or gangrene Constipation Hyperlipidemia STEMI (ST elevation myocardial infarction) Diabetes mellitus Gout Home Medications ?Medication ?Instructions ?Recorded ?Last Taken ?Type allopurinol 100 mg tablet 100 mg PO BID 08/27/1308/27 History aspirin 81 mg tablet,delayed 81 mg PO DAILY 08/27/13 0 08/27/13 History release cholecalciferol (vitamin D3) 25 25 mcg PO DAILY Unknown History mcg (1,000 unit) tablet glimepiride 1 mg tablet 1 mg PO DAILY 11/28/19 Unkno wn History losartan 25 mg tablet 50 mg PO DAILY 11/28/19 05/0 07/23 History atorvastatin 40 mg tablet 40 mg PO DAILY 07/16/22 Unkn own History coenzyme Q10 75 mg capsule (Ultra 75 mg PO DAILY 07/16 Unknown History CoQ10) isosorbide mononitrate 60 mg 60 mg PO DAILY 07/16/22 0 09/02/22 History tablet,extended release 24 hr metoprolol succinate 50 mg 50 mg PO DAILY 07/16/22 Unk nown History tablet,extended release 24 hr metformin 1,000 mg tablet 1,000 mg PO BID 01/15/25 Unk nown History Allergy/AdvReac Type Severity Reaction Status Date / Time No Known Allergies Allergy Verified 10/15/22 07:46 Family History Father Diabetes Mother CVA (cerebral vascular accident) Surgical History History of bilateral inguinal hernia repair History of cardiac catheterization H/O knee surgery Social History Smoking Status: Never smoker ROS ROS ED Constitutional Constitutional ED: Reports other Details: syncope ; Denies chills or fever(s) Cardiovascular Cardiovascular: Denies chest pain Respiratory/Chest Respiratory/Chest: Denies cough Gastrointestinal Gastrointestinal: Denies nausea or vomiting Musculoskeletal Musculoskeletal: Reports neck pain; Denies arthralgias, back pain or myalgias Neurologic Neurologic: Denies paresthesias or weakness Hematologic/Lymphatic Hematologic/Lymphatic: Denies easy bleeding or easy bruising EXAM Physical Exam Const Vital Signs: 01/15/25 10:57 01/15/25 11:01 01/15/25 11:56 Temperature 98.1 F Temperature Source Temporal Pulse Rate 59 L 80 Pulse Rate [Lying] Pulse Rate [Sitting (for 1 minute prior to obtaining)] Pulse Rate [Standing (for 1 minute prior to obtaining)] Respiratory Rate 22 H 16 Respiratory Effort Normal Respiratory Pattern Normal Blood Pressure 146/71 H 128/80 H Blood Pressure [Lying] Blood Pressure [Sitting (for 1 minute prior to obtaining)] Blood Pressure [Standing (for 1 minute prior to obtaining)] Blood Pressure Mean 96 96 Blood Pressure Mean [Lying] Blood Pressure Mean [Sitting (for 1 minute prior to obtaining)] Blood Pressure Mean [Standing (for 1 minute prior to obtaining)] Pulse Ox 98 98 Oxygen Delivery Method Room Air 01/15/25 12:00 01/15/25 13:00 01/15/25 14:00 Temperature 97.8 F Temperature Source Oral Pulse Rate 60 70 68 Pulse Rate [Lying] Pulse Rate [Sitting (for 1 minute prior to obtaining)] Pulse Rate [Standing (for 1 minute prior to obtaining)] Respiratory Rate 17 20 H 19 H Respiratory Effort Respiratory Pattern Blood Pressure 138/69 H 150/38 H 149/86 H Blood Pressure [Lying] Blood Pressure [Sitting (for 1 minute prior to obtaining)] Blood Pressure [Standing (for 1 minute prior to obtaining)] Blood Pressure Mean 92 75 107 Blood Pressure Mean [Lying] Blood Pressure Mean [Sitting (for 1 minute prior to obtaining)] Blood Pressure Mean [Standing (for 1 minute prior to obtaining)] Pulse Ox 98 98 Oxygen Delivery Method Room Air Room Air 01/15/25 14:38 Temperature Temperature Source Pulse Rate Pulse Rate [Lying] 69 Pulse Rate [Sitting (for 1 minute prior to obtaining)] 72 Pulse Rate [Standing (for 1 minute prior to obtaining)] 72 Respiratory Rate Respiratory Effort Respiratory Pattern Blood Pressure Blood Pressure [Lying] 155/84 H Blood Pressure [Sitting (for 1 minute prior to obtaining)] 180/81 H Blood Pressure [Standing (for 1 minute prior to obtaining)] 156/77 H Blood Pressure Mean Blood Pressure Mean [Lying] 107 Blood Pressure Mean [Sitting (for 1 minute prior to obtaining)] 114 Blood Pressure Mean [Standing (for 1 minute prior to obtaining)] 103 Pulse Ox Oxygen Delivery Method Positive well nourished and well developed General Appearance ED: well developed and NAD HEENT Reports moist mucous membranes Neck supple and no JVD Chest Wall inspection of chest normal and palpation of chest normal Resp normal respiratory effort and clear to auscultation bilaterally Cardio regular rate, regular rhythm and no murmurs GI normal to inspection, nondistended, normoactive bowel sounds and non-tender Back/Spine Back/Spine Narrative: Right trapezius tenderness palpation and spasm. No midline tenderness. Extremity normal to inspection Neuro oriented x3 Sensorium / Orientation: alert Motor Exam: Negative for general weakness Psych mental status grossly normal Skin no rashes or lesions noted and no wounds MDM MDM MDM Narrative Medical decision making narrative: Patient evaluated after syncopal episode. He did have a prodrome of feeling lightheaded. No prior history of syncope. Differential clues not limited to arrhythmia, ACS, pulmonary emboli (has had recent travel but is otherwise low risk per Wells criteria), electrolyte derangement, symptomatic anemia and hypovolemia. Workup including EKG, delta high-sensitivity troponin, CBC, BMP and D-dimer is obtained. His workup is largely unremarkable. His bicarb is mildly low at 19.7his creatinine is mildly above his baseline at 1.48. He does have 25-50 casts in his urine but no ketones. Suggest he does have a component of dehydration isgiven a liter of IV fluids. His D-dimer is elevated 2.09 and a CTA of the chestwas added on. This does not show any acute process specifically no PE. Chest x-ray initially obtained reviewed by myself as radiology does not show anyacute process. Patient has orthostatics after IV fluids which are negative. He is asymptomaticthe emergency room. He does not have any associated chest pain. He is comfortable going home. Is comfortable following up outpatient with his panel cutter in [place]. Counseled to call them for follow-up as he might require event monitoring/Holter monitoring and further outpatient workup especially given his cardiac history. Given return precautions to the ER. He verbalized agreement to this plan. Discharged home in stable and improved condition. Lab Data Attestation: I reviewed the patient's lab results. Labs: Laboratory Results - last 24 hr 01/15/25 01/15/25 01/15/25 11:10 11:59 12:07 WBC 8.8 RBC 4.08 L Hgb 13.8 Hct 39.7 L MCV 97.3 H MCH 33.8 H MCHC 34.8 RDW Std Deviation 49.7 H RDW Coeff of Philippe 13.9 Plt Count 190 MPV 10.7 Immature Gran % (Auto) 0.600 Neut % (Auto) 64.1 Lymph % (Auto) 19.5 [place] % (Auto) 14.4 H Eos % (Auto) 0.9 Baso % (Auto) 0.5 Absolute Neuts (auto) 5.7 Absolute Lymphs (auto) 1.72 Nucleated RBC % 0 D-Dimer Quant (PE/DVT) 2.09 H* Sodium 137 Potassium 4.4 Chloride 100 Carbon Dioxide 19.7 L Anion Gap 17 H BUN 17 Creatinine 1.48 H Estim Creat Clear Calc 46.58 L Est GFR (MDRD) Non-Af 50 L BUN/Creatinine Ratio 11.1 Glucose 213 H Calcium 10.1 Troponin T High Sens 21 Troponin T Hi Sens 2 Hr Urine Color Yellow Urine Clarity Clear Urine pH 5.0 Ur Specific [place] 1.015 Urine Protein 30 H Urine Glucose (UA) Normal Urine Ketones Negative Urine Occult Blood Negative Urine Nitrite Negative Urine Bilirubin Negative Urine Urobilinogen Normal Ur Leukocyte Esterase Negative Urine RBC 0 SEEN Urine WBC 0-5 SEEN Ur Squamous Epith Cells 0 SEEN Urine Bacteria 0 SEEN Hyaline Casts 25-50 SEEN Urine Mucus 0 SEEN 01/15/25 13:45 WBC RBC Hgb Hct MCV MCH MCHC RDW Std Deviation RDW Coeff of Philippe Plt Count MPV Immature Gran % (Auto) Neut % (Auto) Lymph % (Auto) [place] % (Auto) Eos % (Auto) Baso % (Auto) Absolute Neuts (auto) Absolute Lymphs (auto) Nucleated RBC % D-Dimer Quant (PE/DVT) Sodium Potassium Chloride Carbon Dioxide Anion Gap BUN Creatinine Estim Creat Clear Calc Est GFR (MDRD) Non-Af BUN/Creatinine Ratio Glucose Calcium Troponin T High Sens Troponin T Hi Sens 2 Hr 17 Urine Color Urine Clarity Urine pH Ur Specific [place] Urine Protein Urine Glucose (UA) Urine Ketones Urine Occult Blood Urine Nitrite Urine Bilirubin Urine Urobilinogen Ur Leukocyte Esterase Urine RBC Urine WBC Ur Squamous Epith Cells Urine Bacteria Hyaline Casts Urine Mucus Radiography Chest X-Ray - ED: 1 View, Read by ED Physician, Read by Radiologist and No AcuteDisease Diagnostic Testing: Clinical Impression(s) from Imaging Studies Chest X-Ray 01/15/25 11:30 IMPRESSION: No acute process is identified in the chest. [facility] Chest CTA 01/15/25 13:12 IMPRESSION: No CT evidence of any filling defect to suggest acute pulmonary embolism. Atherosclerotic calcification of aortic arch and its branches. No CT evidence of any dissection or aneurysm. Coronary artery calcifications. Multiple scattered calcified granulomas and calcified nodules measuring up to 3 mm. Cholelithiasis without evidence of cholecystitis. Reading Location: [facility] Rhythm Strip Rhythm Strip: Sinus Rhythm Rate: 59 Ectopy: None EKG Initial EKG: Attestation: I personally reviewed and interpreted this EKG as follows: Interpretation: Sinus Bradycardia Comments: Sinus bradycardia at a rate of 59 bpm Normal axis Normal intervals Normal ST segments Compared to prior EKG on 09/29/2022 patient has reversal of ST depressions and T wave inversions in the lateral leads Discharge Plan Triage Chief Complaint: Syncope ED Provider: Gina Perera Dx/Rx/DC Orders Clinical Impression: Syncope and collapse, Strain of right trapezius muscle Instructions: ED Neck Sprain or Strain, ED Fainting, Uncertain Cause Prescriptions: No Action isosorbide mononitrate 60 mg tablet extended release 24 hr 60 mg PO DAILY Patient Comments: TAKE 1 TABLET BY MOUTH ONCE DAILY atorvastatin 40 mg tablet 40 mg PO DAILY metoprolol succinate 50 mg tablet extended release 24 hr 50 mg PO DAILY Patient Comments: TAKE 1 TABLET BY MOUTH ONCE DAILY Ultra CoQ10 75 mg capsule 75 mg PO DAILY allopurinol 100 MG tablet 100 mg PO BID aspirin 81 MG tablet 81 mg PO DAILY glimepiride 1 MG tablet 1 mg PO DAILY losartan 25 MG tablet 50 mg PO DAILY cholecalciferol (vitamin D3) 25 MCG tablet 25 mcg PO DAILY metformin 1,000 mg tablet 1,000 mg PO BID Primary Care Provider: Sonia Haynes Referrals: Sonia Haynes MD [Primary Care Provider] - Activity Restrictions/Additional Instructions: Please follow-up with your panel cutter for further evaluation of the syncopal episode. Your ER workup today was largely normal/reassuring. He did have some findings consistent with some mild dehydration. Make sure you drink plenty of fluids. If you have any chest pain or worsening symptoms such as recurrent lightheadedness, passing out, palpitations or difficulty breathing please returnthe emergency room Print Language: Vietnamese Disposition Disposition: Home, Self Care What to do if you have Problems For any increased pain, shortness of breath, bleeding, nausea or vomiting, chestpain, or any unexpected problems, contact your Primary Care Provider. Call [facility] ([phone]) or report to the closest Emergency Room. Call 911 if necessary. 01/15/25 1505 <Electronically signed by Gina Perera DO> Cosigner Signature (if applicable): CC: Dr. Sonia Haynes MD ~ Signed [facility] Work Phone: 1(134) 213-313009-15-2025 Radiology Diagnostic study note [facility] Imaging Services [address] [place], [place] [address] CTA Chest W/WO Contrast MR#: [id number] Acct: [id number] Name: AARON ELKINS Rep #: [id number] : 1950 M 74 From: Kiara Kaufman MD PCP: Dr. Sonia Haynes MD Status: [facility] ER Study:CTA Chest W/WO Contrast Date of Exam: 01/15/25 Exam# [id number] Ordering Dr: Basilia Perera DO PROCEDURE: CTA CHEST W/WO CONTRAST 01/15/2025 REASON FOR EXAM: SYNCOPE, ELEVATED DIMER, PE PROTOCOL TECHNIQUE: Procedure Code: [id number] Modality: CT Procedure: CTA CHEST W/WO CONTRAST Multiplanar Sagittal and Coronal images were obtained. CONTRAST: Isovue 370 VOLUME: 100 mL One or more dose reduction techniques were used (e.g., Automated exposure control, adjustment of the mA and/or kV according to patient size, use of iterative reconstruction technique). RADIATION DOSE SUMMARY: CTDlvol: 12.3 mGy DLP: 420 mGycm COMPARISON: None # of known CTs in the past 12 months: Not documented # of known Cardiac Nuclear Medicine Studies in the past 12 months: Not documented. FINDINGS: Thoracic Aorta: Atherosclerotic plaques. No aneurysm or dissection. Measurements (cm): Sinuses of Valsalva: 3.2 cm Sinotubular junction: 2.9 cm Mid ascendin cm Proximal aortic arch: 2.7 cm Mid aortic arch: 2.4 cm Proximal descendin.4 cm Mid descendin.3 cm Aorta at diaphragm: 2.5 cm Aorta at celiac axis: 2.7 cm Heart: Coronary artery calcifications are noted. Pulmonary Vessels: Pulmonary trunk measures 2.9 cm. There is no CT evidence of any filling defect to suggest pulmonary embolism within main pulmonary trunk, right and left pulmonary trunk and segmental bilateral pulmonary arteries. Evaluation of subsegmental pulmonary arteries is limited Hardware: None Lymph nodes: Scattered mediastinal lymph nodes. Lungs and Airways: Bibasilar atelectasis. Scattered calcified granulomas. Pleura: Bibasilar pleural thickening. Upper Abdomen: Cholelithiasis. Bones: Degenerative changes of the thoracic spine. CT/CTA Chest W/WO Contrast IMPRESSION: No CT evidence of any filling defect to suggest acute pulmonary embolism. Atherosclerotic calcification of aortic arch and its branches. No CT evidence of any dissection or aneurysm. Coronary artery calcifications. Multiple scattered calcified granulomas and calcified nodules measuring up to 3 mm. Cholelithiasis without evidence of cholecystitis. Reading Location: [facility] CC: Dr. Sonia Haynes MD; Dr. Gina Perera DO ~ Planer Hand: Signed [facility]09-15-2025 Radiology Diagnostic study note [facility] Imaging Services [address] [place] [address] Chest 1 View (Portable) MR#: [id number] Acct: [id number] Name: AARON ELKINS Rep #: [id number] : 1950 M 74 From: Lexus Ulloa MD PCP: Dr. Sonia Haynes MD Status: REG ER Study:Chest 1 View (Portable) Date of Exam: 01/15/25 Exam# [id number] Ordering Dr: Basilia Perera DO PROCEDURE: CHEST 1 VIEW (PORTABLE) 01/15/2025 REASON FOR EXAM: SYNCOPE TECHNIQUE: Frontal view of the chest. COMPARISON: November 23, 2020 FINDINGS: Heart size is upper normal. Central vascularity appears normal. There is no focal infiltrate or consolidation. There is no pneumothorax or effusion. There is no acute bony abnormality. Aortic calcifications are noted. RAD/Chest 1 View (Portable) IMPRESSION: No acute process is identified in the chest. Reading Location: [facility] CC: Dr. Sonia Haynes MD; Dr. Gina Perera, DO ~ Planer Hand: Signed [facility]07-10-2025 Telephone encounter Note* Telephone Encounter - Sivan Montanez - 11/09/2024 10:38 AM EDT Patient scheduled for 02/07/25. Sivan Montanez [facility]07-10-2025 Miscellaneous Notes* Telephone Encounter - Sivan Montanez - 11/09/2024 10:38 AM EDT Patient scheduled for 02/07/25. Sivan Montanez * Telephone Encounter - Anh Estrada LPN - 11/09/2024 7:37 AM EDT Patient last seen 11/08/23. Patient instructed to follow up in 12 months. Please call patient with appointment. Anh Aguilar LPN November 09, 2024 7:38 AM documented in this encounterUniversity [facility]07-10-2025 Telephone encounter Note * Telephone Encounter - Anh Estrada LPN - 11/09/2024 7:37 AM EDT Patient last seen 11/08/23. Patient instructed to follow up in 12 months. Please call patient with appointment. Thanks, Anh Estrada LPN November 09, 2024 7:38 AM [facility]07-10-2025 Telephone encounter Note* Telephone Encounter - Anh Estrada LPN - 11/09/2024 7:35 AM EDT Last seen in office on 11/08/23. Sent to clerical [place] to schedule. Patient's request for medication is as follows: Requested Prescriptions Pending Prescriptions Disp Refills metoprolol succinate ER (TOPROL XL) 50 mg 24 hr tablet [Pharmacy Med Name: METOPROLOL ER 50MG TAB] 90 tablet 1 Sig: Take 1 tablet by mouth once daily Prescription(s) as above. Please process accordingly. Anh Estrada LPN [facility]07-10-2025 Miscellaneous Notes* Telephone Encounter - Anh Estrada LPN - 11/09/2024 7:35 AM EDT Last seen in office on 11/08/23. [facility] [place] [facility]. Patient's request for medication is as follows: Requested Prescriptions Pending Prescriptions Disp Refills metoprolol succinate ER (TOPROL XL) 50 mg 24 hr tablet [Pharmacy Med Name: METOPROLOL ER 50MG TAB] 90 tablet 1 Sig: Take 1 tablet by mouth once daily Prescription(s) as above. Please process accordingly. Anh Estrada LPN documented in this encounterUniversity Hospitals [facility]07-02-2025 Radiology Diagnostic study note [facility] Imaging Services [address] [place] [address] Cerv Spine Obl/Flex/Ext Comp MR#: [id number] Acct: [id number] Name: AARON ELKINS Rep #: [id number] : 1950 M 74 From: Jasmyn Collado MD PCP: Dr. Sonia Haynes MD Status: REG CLI Study:Cerv Spine Obl/Flex/Ext Comp Date of Ex am: 10/31/24 Exam# [id number] Ordering Dr: Basilia Haynes MD PROCEDURE: CERV SPINE OBL/FLEX/EXT COMP 10/31/2024 REASON FOR EXAM: STRAIN OF OTHER MUSCLES, FASCIA AND TENDONS AT SHOULDER AND UPPER TECHNIQUE: CERV SPINE OBL/FLEX/EXT COMP COMPARISON: No FINDINGS: Mild and diffuse facet arthritis. At C5-6, there is moderate disc space narrowing and anterior osteophyte formation. At C6-7 there is mild disc space narrowing and anterior osteophyte formation. No abnormal motion with flexion and extension. There is predominantly right-sided mild/moderate multilevel exit foraminal narrowing. Mild cervicothoracic scoliosis. Bilateral carotid artery calcifications. No acute bone or soft tissue pathology. RAD/Cerv Spine Obl/Flex/Ext Comp IMPRESSION: Cervical spine scoliosis and degeneration Disclaimer: Reading Location: [place] [address] CC: Dr. Sonia Haynes MD ~ Planer Hand: Signed [facility]12-24-2024 Telephone encounter Note* Telephone Encounter - Jaimee Hernandez LPN - 04/25/2024 7:16 AM EST Patient's request for medication is as follows: Requested Prescriptions Pending Prescriptions Disp Refills losartan (COZAAR) 25 mg tablet [Pharmacy Med Name: Losartan Potassium 25 MG Oral Tablet] 90 tablet 3 Sig: Take 1 tablet by mouth once daily Patient last seen on 11/08/2023. Prescription(s) as above. Please process accordingly. Jaimee Hernandez LPN [facility]12-24-2024 Miscellaneous Notes* Telephone Encounter - Jaimee Hernandez LPN - 04/25/2024 7:16 AM EST Patient's request for medication is as follows: Requested Prescriptions Pending Prescriptions Disp Refills losartan (COZAAR) 25 mg tablet [Pharmacy Med Name: Losartan Potassium 25 MG Oral Tablet] 90 tablet 3 Sig: Take 1 tablet by mouth once daily Patient last seen on 11/08/2023. Prescription(s) as above. Please process accordingly. Jaimee Hernandez LPN documented in this encounterUniversity Hospitals [facility]09-30-2024 Telephone encounter Note * Telephone Encounter - Blanca Maldonado LPN - 01/31/2024 10:24 AM EDT Patient's request for medication is as follows: Requested Prescriptions Pending Prescriptions Disp Refills isosorbide mononitrate ER (IMDUR) 60 mg 24 hr tablet [Pharmacy Med Name: Isosorbide Mononitrate ER 60 MG Oral Tablet Extended Release 24 Hour] 90 tablet 3 Sig: Take 1 tablet by mouth once daily Last seen 11/08/2023. Prescription(s) as above. Please process accordingly. Blanca Maldonado LPN [facility]09-30-2024 Miscellaneous Notes* Telephone Encounter - Blanca Maldonado LPN - 01/31/2024 10:24 AM EDT Patient's request for medication is as follows: Requested Prescriptions Pending Prescriptions Disp Refills isosorbide mononitrate ER (IMDUR) 60 mg 24 hr tablet [Pharmacy Med Name: Isosorbide Mononitrate ER 60 MG Oral Tablet Extended Release 24 Hour] 90 tablet 3 Sig: Take 1 tablet by mouth once daily Last seen 11/08/2023. Prescription(s) as above. Please process accordingly. Blanca Maldonado LPN documented in this encounterUniversity Hospitals [facility]08-01-2024 Telephone encounter Note * Telephone Encounter - Blanca Maldonado LPN - 12/02/2023 6:58 AM EDT Patient's request for medication is as follows: Requested Prescriptions Pending Prescriptions Disp Refills metoprolol succinate ER (TOPROL XL) 50 mg 24 hr tablet [Pharmacy Med Name: Metoprolol Succinate ER 50 MG Oral Tablet Extended Release 24 Hour] 90 tablet 3 Sig: Take 1 tablet by mouth once daily Last seen 11/08/2023. Prescription(s) as above. Please process accordingly. Blanca Maldonado LPN [facility]08-01-2024 Miscellaneous Notes* Telephone Encounter - Blanca Maldonado LPN - 12/02/2023 6:58 AM EDT Patient's request for medication is as follows: Requested Prescriptions Pending Prescriptions Disp Refills metoprolol succinate ER (TOPROL XL) 50 mg 24 hr tablet [Pharmacy Med Name: Metoprolol Succinate ER 50 MG Oral Tablet Extended Release 24 Hour] 90 tablet 3 Sig: Take 1 tablet by mouth once daily Last seen 11/08/2023. Prescription(s) as above. Please process accordingly. Blanca Maldonado LPN documented in this encounterUniversity Hospitals [facility]07-08-2024 History of Present illness Narrative* Dionicio Simon MD - 11/08/2023 10:13 AM EDT Chief Complaint: Patient presents with: Cardiology Follow Up Cardiac Clearance: R HR on 12/16/23 History of Present Illness: Aaron Elkins is a 71 year old male with history of essential hypertension, diabetes who had anMI in October 2020 upon admission at [facility]. His initial symptoms were chest tightness with radiation into both arms which went away after a brief. Of time. Few hours later when he woke up from sleep he had jaw pain which prompted him to go to the emergency room. There he had an EKG done which showed ST depression in the anterior leads. Posterior EKG showed ST elevation which prompted emergent heart catheterization. This showed three- vessel disease and he was transferred to [facility] for further treatment recommendations. He was evaluated by CT surgery and NETWORK CONTRACT MANAGER clinical specialist who felt that he did not have good targets for bypass surgery and there were no viable PCI options due to diffuse nature of disease and small blood vessels he was treated medically. Initially there was a plan to recommend him for the EXACT trial (Epicardial delivery of XC001 gene therapy for Refractory Angina Coronary Treatment) but as he did not have any anginal symptoms he was not determined to be a candidate. He saw the panel cutter in January of last year at the main campus but then decided to switch closer to home so he has come to establish with me today. He says since his hospital discharge he has been doing well without any symptoms of chest pain shortness of breath palpitations lightheadedness syncope orthopnea PND or leg edema. Patient walks on a daily basis and does not have any cardiac symptoms during these exertional activities. 07/01/2022: Patient denies any chest pain shortness of breath palpitations lightheadedness syncope orthopnea PND or leg edema. Patient says he walks on a daily basis and denies any cardiac symptoms while doing so. 02/10/2023: Patient denies any chest pain shortness of breath palpitations lightheadedness syncope orthopnea PND or leg edema. 11/08/2023: Patient is here for preoperative clearance prior to orthopedic surgery. Patient denies any chest pain shortness of breath palpitations lightheadedness syncope orthopnea PND or leg edema. 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 No pertinent surgical history. History reviewed. No pertinent family history. Social History Tobacco Use Smoking status: Never Smokeless tobacco: Never Vaping Use Vaping Use: Never used Substance Use Topics Alcohol use: No Drug use: No Current Outpatient Medications Medication Sig metoprolol succinate ER (TOPROL XL) 50 mg 24 hr tablet Take 1 tablet by mouth once daily losartan (COZAAR) 25 mg tablet Take 1 tablet by mouth once daily isosorbide mononitrate ER (IMDUR) 60 mg 24 hr tablet Take 1 tablet by mouth once daily. nitroglycerin sublingual (NITROQUICK) 0.4 mg SL tablet Dissolve 1 tablet under the tongue every 5 minutes as needed for chest pain. Max 3. If no pain relief call 911. atorvastatin (LIPITOR) 80 mg tablet Take 1 tablet by mouth daily at bedtime. cholecalciferol (VITAMIN D3) 1,000 unit tab tablet Take by mouth. glimepiride (AMARYL) 1 mg tablet Take 1 tablet by mouth once daily. Home medication dose verified with pharmacy metFORMIN (GLUCOPHAGE) 1,000 mg tablet Take 1 tablet by mouth twice daily. home medication allopurinol (ZYLOPRIM) 100 mg tablet Take 1 tablet by mouth twice daily. home medication ASPIRIN 81 MG TAB Take one(1) tablet daily. No current facility-administered medications for this visit. ALLERGIES No Known Allergies Review of Systems: Respiratory: Negative for cough, shortness of breath at rest or on exertion, wheezing I have confirmed and edited as necessary, the PFSH and ROS obtained by others. Physical Examination: BP 145/88 (BP Site: Left Arm, BP Position: Sitting, BP Cuff Size: Regular Adult) Pulse 69 Wt 163 lb (73.9 kg) SpO2 99% BMI 23.39 kg/m BMI 23.39 kg/(m^2) General: Appears well in no acute distress Neck: No JVD no carotid bruit no palpable thyromegaly Heart S1-S2 rate regular rhythm no murmur no rubs or gallops Lungs: Breath sounds equal clear to auscultation bilaterally Extremities no pedal edema Cardiac Testing and Procedures: Electrocardiogram: 11/08/2023: Normal sinus rhythm at [address] abnormality. 07/01/2022: Sinus bradycardia 51 bpm. Otherwise normal EKG. 05/14/2021: Sinus bradycardia at 53 bpm. Otherwise normal EKG 11/28/2020: Normal sinus rhythm. Inferior posterior AL. Echocardiogram: 11/25/2020: EF 49%. Grade 1 diastolic dysfunction. Apical lateral segments severely hypokinetic. Anterolateral wall and posterior wall are mildly hypokinetic. No significant valvular abnormalities. Left heart catheterization 11/23/2020: Left main: Large caliber, Minor angiographic abnormalities LAD: Small caliber with severe diffuse disease from the proximal segment to the apical segment. 2 small threadlike diagonal branches with severe diffuse disease Circumflex: Medium to large caliber vessel with tandem 90% stenoses throughout the AV groove portion. OM1 is too small to revascularize.OM2 and posterior lateral branches are of medium caliber and would be potential targets for bypass. RCA: Nonselectively engaged, generally moderate diffuse disease throughout this a dominant vessel. There may be significant ostial disease I have personally reviewed the Electrocardiogram. ASSESSMENT/PLAN: 1. Coronary artery disease involving [place] coronary artery of [place] heart without angina pectoris- ICD9: 414.01, ICD10: I25.10 Patient denies any anginal symptoms and is doing well overall from a cardiac standpoint. Patient says he walks almost a mile on a daily basis. 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 He is to continue aspirin beta-blockers nitrates and high intensity statins. He is due to get a lipid panelnext week. If LDL significantly below goal of 70 statin dose can be reduced. 2. Ischemic cardiomyopathy Patient appears euvolemic. He is to continue beta-blockers and ARB in the current dose. His BMP is being monitored through the PCPs office. 3. Preoperative clearance Patient walks a mile every day. Denies any cardiac symptoms. Is easily able to achieve 4 METS activity. In the absence of signs and symptoms of unstable angina, myocardial infarction, heart failure, severe aortic stenosis, malignant arrhythmias patient is at low cardiac risk for an intermediate risk surgery and is medically optimized for the same. RCRI is less than 1% which is considered low riskfor perioperative MACE. Dionicio Simon MD documented in this encounterUniversity Hospitals [facility] Center07-08-2024 Telephone encounter Note * Telephone Encounter - Britney Nieto - 11/08/2023 9:05 AM EDT Pt was seen today by Dr. Simon and will follow up with him in [place]. Thank you, Britney Nieto [facility]07-08-2024 Miscellaneous Notes* Telephone Encounter - Britney Nieto - 11/08/2023 9:05 AM EDT Pt was seen today by Dr. Simon and will follow up with him in [place]. Thank you, Britney Nieto documented in this encounterUniversity Hospitals Conneaut Medical Center07-08-2024 Nurse Note* Abbey Walker MA - 11/08/2023 8:36 AM EDT Patient has no cardiac complaints today. Abbey Aaron JOCKEY VALET [facility]07-08-2024 Nurse Note* Abbey Walker MA - 11/08/2023 8:36 AM EDT Patient has no cardiac complaints today. Abbeydelfino Walker JOCKEY VALET documented in this encounterUniversity Hospitals Conneaut [facility] Center07-02-2024 Telephone encounter Note * Telephone Encounter - Michelle Rai - 11/02/2023 1:19 PM EDT Ryan called, and he is scheduled for a total hip replacement on December 15. This is being done by Dr. Peter Eastman with [facility]. Dr. Eastman recommended that Ryan inform Dr. Simon of his upcoming surgery. Ryan said his health has been well, and he personally has no concerns. Could someone from Dr. Simon's team contact Ryan and let him know if he has any specific recommendations with regards to the hip replacement procedure? Thank you, Michelle Rai [facility]07-02-2024 Miscellaneous Notes* Telephone Encounter - Michelle Rai - 11/02/2023 1:19 PM EDT Ryan called, and he is scheduled for a total hip replacement on December 15. This is being done by Dr. Peter Eastman with [facility]. Dr. Eastman recommended that Ryan inform Dr. Simon of his upcoming surgery. Ryan said his health has been well, and he personally has no concerns. Could someone from Dr. Simon's team contact Ryan and let him know if he has any specific recommendations with regards to the hip replacement procedure? Thank you, Michelle Rai documented in this encounterUniversity Hospitals Conneaut [facility] Center05-07-2024 Telephone encounter Note * Telephone Encounter - Jaimee Hernandez LPN - 09/07/2023 9:58 AM EDT Patient's request for medication is as follows: Requested Prescriptions Pending Prescriptions Disp Refills metoprolol succinate ER (TOPROL XL) 50 mg 24 hr tablet [Pharmacy Med Name: Metoprolol Succinate ER 50 MG Oral Tablet Extended Release 24 Hour] 90 tablet 0 Sig: Take 1 tablet by mouth once daily Patient last seen on 02/10/2023. Prescription(s) as above. Please process accordingly. Jaimee Hernandez LPN [facility]05-07-2024 Miscellaneous Notes* Telephone Encounter - Jaimee Hernandez LPN - 09/07/2023 9:58 AM EDT Patient's request for medication is as follows: Requested Prescriptions Pending Prescriptions Disp Refills metoprolol succinate ER (TOPROL XL) 50 mg 24 hr tablet [Pharmacy Med Name: Metoprolol Succinate ER 50 MG Oral Tablet Extended Release 24 Hour] 90 tablet 0 Sig: Take 1 tablet by mouth once daily Patient last seen on 02/10/2023. Prescription(s) as above. Please process accordingly. Jaimee Hernandez LPN documented in this encounterUniversity Hospitals Conneaut Medical Center10-23-2023 Miscellaneous Notes* Telephone Encounter - Lianet Manuel RN - 02/22/2023 11:06 AM EDT Called patient to let him know we don't see any calls from the office this morning, just a refill request that is pending. No answer. Left message on voicemail. * Telephone Encounter - Michelle Rai - 02/22/2023 10:05 AM EDT Ryan called with a question about his prescription, could someone call him back? He said he is returning a call. Thank you, Michelle Rai documented in this encounterUniversity Hospitals Conneaut Medical Center10-11-2023 NoteHNO ID: [id number] Author: Dionicio Simon MD Service: ? Author Type: Physician Type: Progress Notes Filed: 02/10/2023 10:01 AM Note Text: Chief Complaint: Patient presents with: Follow Up: Coronary Artery Disease History of Present Illness: Aaron Elkins is a 71 year old male with history of essential hypertension, diabetes who had an AL in October 2020 upon admission at [facility]. His initial symptoms were chest tightness with radiation into both arms which went away after a brief. Of time. Few hours later when he woke up from sleep he had jaw pain which prompted him to go to the emergency room. There he had an EKG done which showed ST depression in the anterior leads. Posterior EKG showed ST elevation which prompted emergent heart catheterization. This showed three-vessel disease and he was transferred to [facility] for further treatment recommendations. He was evaluated by CT surgery and NETWORK CONTRACT MANAGER clinical specialist who felt that he did not have good targets for bypass surgery and there were no viable PCI options due to diffuse nature of disease and small blood vessels he was treated medically. Initially there was a plan to recommend him for the EXACT trial (Epicardial delivery of XC001 gene therapy for Refractory Angina Coronary Treatment) but as he did not have any anginal symptoms he was not determined to be a candidate. He saw the panel cutter in January of last year at the [facility] but then decided to switch closer to home so he has come to establish with me today. He says since his hospital discharge he has been doing well without any symptoms of chest pain shortness of breath palpitations lightheadedness syncope orthopnea PND or leg edema. Patient walks on a daily basis and does not have any cardiac symptoms during these exertional activities. 07/01/2022: Patient denies any chest pain shortness of breath palpitations lightheadedness syncope orthopnea PND or leg edema. Patient says he walks on a daily basis and denies any cardiac symptoms while doing so. 02/10/2023: Patient denies any chest pain shortness of breath palpitations lightheadedness syncope orthopnea PND or leg edema. 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 No pertinent surgical history. History reviewed. No pertinent family history. Social History Tobacco Use Smoking status: Never Smokeless tobacco: Never Vaping Use Vaping Use: Never used Substance Use Topics Alcohol use: No Drug use: No Current Outpatient Medications Medication Sig allopurinol (ZYLOPRIM) 100 mg tablet Take 1 tablet by mouth twice daily. home medication ASPIRIN 81 MG TAB Take one(1) tablet daily. atorvastatin (LIPITOR) 80 mg tablet Take 1 tablet by mouth daily at bedtime. cholecalciferol (VITAMIN D3) 1,000 unit tab tablet Take by mouth. glimepiride (AMARYL) 1 mg tablet Take 1 tablet by mouth once daily. Home medication dose verified with pharmacy isosorbide mononitrate ER (IMDUR) 60 mg 24 hr tablet Take 1 tablet by mouth once daily. losartan (COZAAR) 25 mg tablet Take 1 tablet by mouth once daily. metFORMIN (GLUCOPHAGE) 1,000 mg tablet Take 1 tablet by mouth twice daily. home medication metoprolol succinate ER (TOPROL XL) 50 mg 24 hr tablet Take 1 tablet by mouth once daily. nitroglycerin sublingual (NITROQUICK) 0.4 mg SL tablet Dissolve 1 tablet under the tongue every 5 minutes as needed for chest pain. Max 3. If no pain relief call 911. No current facility-administered medications for this visit. ALLERGIES No Known Allergies Review of Systems: General: No weight loss, malaise, fevers, chills, or night sweats HEENT: Negative for epistaxis Neck: Negative for pain and significant neck swelling Respiratory: Negative for cough, shortness of breath at rest or on exertion, wheezing Cardiac: Negative history of chest pain on exertion, dyspnea on exertion, orthopnea, paroxysmal nocturnal dyspnea, lower extremity edema, presyncope, syncope, or palpitations Gastrointestinal: Negative history of abdominal pain, nausea, vomiting, constipation, diarrhea, melena, or hematochezia Urinary: Negative history of dysuria, hematuria, or frequency Peripheral vascular: No claudication Musculoskeletal: Negative for joint aches/pain, neck pain, or back pain Neurologic: Negative history of dizziness/lightheadedness, vertigo, numbness/tingling of hands or feet Hematologic: Negative for easy bruising or easy bleeding. Endocrine: Negative history of obesity Skin: Neg (more content not included)...[facility]10-11-2023 History of Present illness Narrative* Dionicio Simon MD - 02/10/2023 9:58 AM EDT Chief Complaint: Patient presents with: Follow Up: Coronary Artery Disease History of Present Illness: Aaron Elkins is a 71 year old male with history of essential hypertension, diabetes who had anMI in October 2020 upon admission at [facility]. His initial symptoms were chest tightness with radiation into both arms which went away after a brief. Of time. Few hours later when he woke up from sleep he had jaw pain which prompted him to go to the emergency room. There he had an EKG done which showed ST depression in the anterior leads. Posterior EKG showed ST elevation which prompted emergent heart catheterization. This showed three- vessel disease and he was transferred to [facility] for further treatment recommendations. He was evaluated by CT surgery and NETWORK CONTRACT MANAGER clinical specialist who felt that he did not have good targets for bypass surgery and there were no viable PCI options due to diffuse nature of disease and small blood vessels he was treated medically. Initially there was a plan to recommend him for the EXACT trial (Epicardial delivery of XC001 gene therapy for Refractory Angina Coronary Treatment) but as he did not have any anginal symptoms he was not determined to be a candidate. He saw the panel cutter in January of last year at the [facility] but then decided to switch closer to home so he has come to establish with me today. He says since his hospital discharge he has been doing well without any symptoms of chest pain shortness of breath palpitations lightheadedness syncope orthopnea PND or leg edema. Patient walks on a daily basis and does not have any cardiac symptoms during these exertional activities. 07/01/2022: Patient denies any chest pain shortness of breath palpitations lightheadedness syncope orthopnea PND or leg edema. Patient says he walks on a daily basis and denies any cardiac symptoms while doing so. 02/10/2023: Patient denies any chest pain shortness of breath palpitations lightheadedness syncope orthopnea PND or leg edema. 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 No pertinent surgical history. History reviewed. No pertinent family history. Social History Tobacco Use Smoking status: Never Smokeless tobacco: Never Vaping Use Vaping Use: Never used Substance Use Topics Alcohol use: No Drug use: No Current Outpatient Medications Medication Sig allopurinol (ZYLOPRIM) 100 mg tablet Take 1 tablet by mouth twice daily. home medication ASPIRIN 81 MG TAB Take one(1) tablet daily. atorvastatin (LIPITOR) 80 mg tablet Take 1 tablet by mouth daily at bedtime. cholecalciferol (VITAMIN D3) 1,000 unit tab tablet Take by mouth. glimepiride (AMARYL) 1 mg tablet Take 1 tablet by mouth once daily. Home medication dose verified with pharmacy isosorbide mononitrate ER (IMDUR) 60 mg 24 hr tablet Take 1 tablet by mouth once daily. losartan (COZAAR) 25 mg tablet Take 1 tablet by mouth once daily. metFORMIN (GLUCOPHAGE) 1,000 mg tablet Take 1 tablet by mouth twice daily. home medication metoprolol succinate ER (TOPROL XL) 50 mg 24 hr tablet Take 1 tablet by mouth once daily. nitroglycerin sublingual (NITROQUICK) 0.4 mg SL tablet Dissolve 1 tablet under the tongue every 5 minutes as needed for chest pain. Max 3. If no pain relief call 911. No current facility-administered medications for this visit. ALLERGIES No Known Allergies Review of Systems: General: No weight loss, malaise, fevers, chills, or night sweats HEENT: Negative for epistaxis Neck: Negative for pain and significant neck swelling Respiratory: Negative for cough, shortness of breath at rest or on exertion, wheezing Cardiac: Negative history of chest pain on exertion, dyspnea on exertion, orthopnea, paroxysmal nocturnal dyspnea, lower extremity edema, presyncope, syncope, or palpitations Gastrointestinal: Negative history of abdominal pain, nausea, vomiting, constipation, diarrhea, melena, or hematochezia Urinary: Negative history of dysuria, hematuria, or frequency Peripheral vascular: No claudication Musculoskeletal: Negative for joint aches/pain, neck pain, or back pain Neurologic: Negative history of dizziness/lightheadedness, vertigo, numbness/tingling of hands or feet Hematologic: Negative for easy bruising or easy bleeding. Endocrine: Negative history of obesity Skin: Negative history of rash and itching Other: The rest of the review of systems is unremarkable and negative or non-contributory I have confirmed and edited as necessary, the PFSH and ROS obtained by others. Physical Examination: BP 130/60 Pulse 60 Ht 177.8 cm (5' 10) Wt 76.7 kg (169 lb) SpO2 99% BMI 24.25 kg/m BMI 24.25 kg/(m^2) General: Appears well in no acute distress Skin: No clubbing no cyanosis HEENT PERRLA Mucosa: Moist Neck: No JVD no carotid bruit no palpable thyromegaly Heart S1-S2 rate regular rhythm no murmur no rubs or gallops Lungs: Breath sounds equal clear to auscultation bilaterally Extremities no pedal edema Neuro: Oriented to time place and person grossly intact. Psych: Normal mood and affect Cardiac Testing and Procedures: Electrocardiogram: 07/01/2022: Sinus bradycardia 51 bpm. Otherwise normal EKG. 05/14/2021: Sinus bradycardia at 53 bpm. Otherwise normal EKG 11/28/2020: Normal sinus rhythm. Inferior posterior AL. Echocardiogram: 11/25/2020: EF 49%. Grade 1 diastolic dysfunction. Apical lateral segments severely hypokinetic. Anterolateral wall and posterior wall are mildly hypokinetic. No significant valvular abnormalities. Left heart catheterization 11/23/2020: Left main: Large caliber, Minor angiographic abnormalities LAD: Small caliber with severe diffuse disease from the proximal segment to the apical segment. 2 small threadlike diagonal branches with severe diffuse disease Circumflex: Medium to large caliber vessel with tandem 90% stenoses throughout the AV groove portion. OM1 is too small to revascularize.OM2 and posterior lateral branches are of medium caliber and would be potential targets for bypass. RCA: Nonselectively engaged, generally moderate diffuse disease throughout this a dominant vessel. There may be significant ostial disease I have personally reviewed the Electrocardiogram. ASSESSMENT/PLAN: 1. Coronary artery disease involving [place] coronary artery of [place] heart without angina pectoris- ICD9: 414.01, ICD10: I25.10 Patient denies any anginal symptoms and is doing well overall. He says he walks almost a mile on a daily basis. He says he has also started to volunteer at [facility] where he gets some steps as well. He is to continue aspirin beta-blockers nitrates and high intensity statins. LDL done in May of this year was 40 well below the goal of 70. 2. Ischemic cardiomyopathy Patient appears euvolemic. He is to continue beta-blockers and ARB in the current dose. His BMP is monitored through his PCPs office. Dionicio Simon MD documented in this encounterUniversity Hospitals Conneaut Medical Center05-03-2023 History and physical note Author Dr. Jones [facility] September 02, 2022 7:16am Note Date/Time September 02, 2022 6:17am [facility] Medical Records Department [address] [place] [id number] History & Physical Exam 09/02/22614 MR#: [id number] Acct: [id number] Name: AARON ELKINS Rep #:[id number] : 1950 72 From: Andre Jones MD PCP: Dr. Jose Haynes MD Status: [facility] Location: [place] [address] History and Physical Date of Admission: 09/02/22 Chief Complaint: Update H&P Bilateral inguinal herniorrhaphy Printing Bindery Assistant Required: No Is patient in pain?: No Allergies No Known Allergies Allergy (Verified 08/27/22 07:36) Medications allopurinol 100 mg tablet 100 mg PO BID 08/27/13 [History Confirmed 08/27/22] aspirin 81 mg tablet,delayed release 81 mg PO DAILY 08/27/13 [History Confirmed 08/27/22] metformin 500 mg tablet,extended release 24 hr 1,000 mg PO BID 08/27/13 [History Confirmed 08/27/22] cholecalciferol (vitamin D3) 25 mcg (1,000 unit) tablet 25 mcg PO DAILY 11/28/19[History Confirmed 08/27/22] glimepiride 1 mg tablet 1 mg PO DAILY 11/28/19 [History Confirmed 08/27/22] losartan 25 mg tablet 50 mg PO DAILY 11/28/19 [History Confirmed 08/27/22] atorvastatin 40 mg tablet 40 mg PO DAILY 07/16/22 [History Confirmed 08/27/22] coenzyme Q10 75 mg capsule (Ultra CoQ10) 75 mg PO DAILY 07/16/22 [History Confirmed 08/27/22] isosorbide mononitrate 60 mg tablet,extended release 24 hr 60 mg PO DAILY 07/16/22 [History Confirmed 08/27/22] metoprolol succinate 50 mg tablet,extended release 24 hr 50 mg PO DAILY 07/16/22[History Confirmed 08/27/22] tamsulosin 0.4 mg capsule (Flomax) 0.4 mg PO DAILY #30 caps 07/16/22 [Rx Confirmed 08/27/22] PFSH Medical History?(Updated 08/27/22 @ 07:35 by Bushra Trevino) Bilateral inguinal hernia without obstruction or gangrene Cardiology follow-up encounter Constipation Diabetes mellitus Gout High cholesterol History of echocardiogram History of heart attack Hyperlipidemia Non-smoker STEMI (ST elevation myocardial infarction) Urinary retention Wears glasses Surgical History? H/O knee surgery History of cardiac catheterization Family History? Father DiabetesMother CVA (cerebral vascular accident) Social History? Smoking Status:? Never smoker HPI HPI Surgical H&P: Yes HPI: Patient is a 72 y/o M I am following for an update history and physical for an upcoming bilateral inguinal hernia repair. Patient denies any recent hospitalizations or illnesses. Patient is only on a daily aspirin. He denies anyprevious complications with anesthesia. Patient notes he had a myocardial infarction in 2020. Dr. Simon is his panel cutter. Patient denies any recent bowelhabit changes. Patient's previous history per Dr. Jones: 72-year-old gentleman is referred by Dr. Adam Marie for surgical consultationregarding a possible left inguinal hernia and a written copy of my surgical consult recommendations will be returned to him.? The patient's most recent urologic visit was March 05, 2022.? Primary care physician Dr. Sonia Haynes.? Patient remains very active.? He is still employed in [employer] business.? 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 He is having trouble with coughing standing straining with increased discomfort in the left groin.? He did have a CT scan of the abdomen dating back to 2013 which showed bilateral fat-containing inguinal hernias at that time. In 2020 he had a myocardial infarction and had a coronary catheterization locally and then he was transferred to [facility] where he stated he spent10 days.? He states he was evaluated there and was instructed that there was no endovascular approach or open coronary approach that could be utilized to assistwith his disease.? The patient has taken a very proactive stance.? He walks daily eats a heart healthy diet keeps his type 2 diabetes under good control.? Apparently leading up to that event he was only on allopurinol and metformin.? Subsequent to that event he was initiated on low-dose aspirin therapy and atorvastatin and vitamin D and coenzyme Q 10 and glimepiride and isosorbide mononitrate ER and losartan and metoprolol. He states he is asymptomatic.? He is able to go up a flight of stairs.? He is able to do his exercise without problem.? No chest pain shortness of breath or palpitation. His panel cutter is Dr. Simon at [facility]. The patient states that he is up-to-date with colonoscopy screening per Dr. Javan Bryan.? The patient states that over the last 3 months he has had some increased problems with constipation. The patient does have urinary retention with nocturia once nightly.? He states that he has annual follow-up with but also states that he has not had elevation of his PSA or prostate cancer ROS General General: No weight change, appetite, fatigue, colon cancer, breast cancer or weakness HEENT HEENT: No difficulty swallowing, eye injury, eye surgery, swollen glands or hoarseness Endo Endocrine: Yes diabetes mellitus; No thyroid disease, thyroid cancer, Hair loss, heat intolerance or cold intolerance Skin Skin: No rash or changing moles Breast Breast: No left breast lump, right breast lump, nipple discharge, breast pain, abnormal mammogram, abnormal US or breast enlargement Musc Musculoskeletal: Yes gout; No back problems, arthritis, rheumatoid arthritis or joint pain Cardio Cardiovascular: Yes heart attack; No murmur, pacemaker, heart disease, atrial fibrillation, high blood pressure, heart stent, palpitations, shortness of breat with exertion or chest pain Psych Psychiatric: No depression, anxiety or hearing voices Resp Respiratory: No shortness of breath, No sleep apnea, No cough, No COPD, No asthma, No emphysema and No wheezing Gastro Gastrointestinal: No abdominal pain, No nausea or vomiting, No diarrhea, No constipation, No blood in stool, No acid reflux, No hemorrhoids, No ulcers, No gallbladder problem and No black,tarry stools [place]edar Hematologic: Yes blood thinners, No blood disorders, No bleeding, No anemia and No blood clots Neuro Neurologic: No system reviewed and no additional complaints, except as documented, No as per HPI, No abnormal gait, No abnormal hearing, No abnormal movements, No abnormal speech, No behavioral changes, No burning sensations, No confusion, No convulsions, No disequilibrium, No dizziness, No localized weakness, No frequent falls, No headache(s), No lack of coordination, No loss ofvision, No memory loss, No numbness, No other visual disturbances, No radicular pain, No restless legs, No sensory deficit, No syncope, No tingling, No tremor(s), No weakness and No other Exam Const General: cooperative, healthy appearing, comfortable and no acute distress [facility] Head: normal to inspection Eyes General: appearance normal, both eyes and all related structures Neck Neck: normal visual inspection Neck mass: No Resp Effort & Inspection: normal respiratory effort Auscultation: clear to auscultation bilaterally Cardio Rate: regular rate Rhythm: regular rhythm GI Inspection: normal to inspection Palpation: hernia (bilateral inguinal hernias) Musc Cervical Spine: normal cervical lordosis Skin General: no rashes or lesions noted Neuro General: no focal motor deficits Extrem General: normal to inspection Psych Appearance: grossly normal Affect: normal affect Assessment and Plan Assessment and Plan (1) Bilateral inguinal hernia without obstruction or gangrene: ?Status:?Acute ?Plan: Dr. Jones will plan to perform a laparoscopic bilateral inguinal hernia repair with mesh. Procedure details, risks and benefits have been reviewed. Patient hashad the opportunity to ask and have questions answered. Patient verbally understands and agrees with the plan. Patient may continue to take his daily aspirin until the day of the procedure. He will continue the Flomax and Miralax to assist with urinary flow and bowel function I have examined the patient and the H&P has been reviewed. There are no clinicalchanges since date of exam. Andre Jones M.D., F.A.C.S. 09/02/22 0716 <Electronically signed by Andre Jones MD> Cosigner Signature (if applicable): CC: Dr. Jose Haynes MD; Dr. Andre Jones MD~ Signed [facility] Work Phone: [phone] Procedure [facility] 08-10-2022 Miscellaneous Notes* Telephone Encounter - Robert Christianson RN - 08/10/2022 11:43 AM EDT Called PT advised him to call his Primary to refill glimepiride (AMARYL) 1 mg tablet PT states he understands * Telephone Encounter - Michelle Rai - 08/10/2022 8:24 AM EDT Ryan is almost out of his glimepiride and he is leaving for a trip to [place] Wednesday. Is it possible for Dr. Simon to send a refill of his medication? Pharmacy choice is [facility]. Thank you, Michelle Rai documented in this encounterUniversity Hospitals Conneaut Medical Center03-22-2023 Miscellaneous Notes* Telephone Encounter - Siri Walker LPN - 07/22/2022 1:43 PM EDT Clearance form received from [facility]. Form placed in Dr. Simon's door box, form also scanned in. Siri Walker LPN documented in this encounterUniversity Hospitals Conneaut Medical Center03-01-2023 History of Present illness Narrative* Dionicio Simon MD - 07/01/2022 8:06 AM EST Chief Complaint: Patient presents with: Follow Up: Coronary Artery Disease History of Present Illness: Aaron Elkins is a 71 year old male with history of essential hypertension, diabetes who had anMI in October 2020 upon admission at [facility]. His initial symptoms were chest tightness with radiation into both arms which went away after a brief. Of time. Few hours later when he woke up from sleep he had jaw pain which prompted him to go to the emergency room. There he had an EKG done which showed ST depression in the anterior leads. Posterior EKG showed ST elevation which prompted emergent heart catheterization. This showed three- vessel disease and he was transferred to [facility] for further treatment recommendations. He was evaluated by CT surgery and NETWORK CONTRACT MANAGER clinical specialist who felt that he did not have good targets for bypass surgery and there were no viable PCI options due to diffuse nature of disease and small blood vessels he was treated medically. Initially there was a plan to recommend him for the EXACT trial (Epicardial delivery of XC001 gene therapy for Refractory Angina Coronary Treatment) but as he did not have any anginal symptoms he was not determined to be a candidate. He saw the panel cutter in January of last year at the [facility] but then decided to switch closer to home so he has come to establish with me today. He says since his hospital discharge he has been doing well without any symptoms of chest pain shortness of breath palpitations lightheadedness syncope orthopnea PND or leg edema. Patient walks on a daily basis and does not have any cardiac symptoms during these exertional activities. 07/01/2022: Patient denies any chest pain shortness of breath palpitations lightheadedness syncope orthopnea PND or leg edema. Patient says he walks on a daily basis and denies any cardiac symptoms while doing so. 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 No family history on file. Social History Tobacco Use Smoking status: Never Smokeless tobacco: Never Vaping Use Vaping Use: Never used Substance Use Topics Alcohol use: No Drug use: No Current Outpatient Medications Medication Sig losartan (COZAAR) 25 mg tablet Take 1 tablet by mouth once daily. isosorbide mononitrate ER (IMDUR) 60 mg 24 hr tablet Take 1 tablet by mouth once daily. metoprolol succinate ER (TOPROL XL) 50 mg 24 hr tablet Take 1 tablet by mouth once daily. atorvastatin (LIPITOR) 80 mg tablet Take 1 tablet by mouth daily at bedtime. cholecalciferol (VITAMIN D3) 1,000 unit tab tablet Take by mouth. glimepiride (AMARYL) 1 mg tablet Take 1 tablet by mouth once daily. Home medication dose verified with pharmacy metFORMIN (GLUCOPHAGE) 1,000 mg tablet Take 1 tablet by mouth twice daily. home medication allopurinol (ZYLOPRIM) 100 mg tablet Take 1 tablet by mouth twice daily. home medication nitroglycerin sublingual (NITROQUICK) 0.4 mg SL tablet Dissolve 1 tablet under the tongue every 5 minutes as needed for chest pain. Max 3. If no pain relief call 911. ASPIRIN 81 MG TAB Take one(1) tablet daily. clopidogrel (PLAVIX) 75 mg tablet Take 1 tablet by mouth once daily. No current facility-administered medications for this visit. ALLERGIES No Known Allergies Review of Systems: General: No weight loss, malaise, fevers, chills, or night sweats HEENT: Negative for epistaxis Neck: Negative for pain and significant neck swelling Respiratory: Negative for cough, shortness of breath at rest or on exertion, wheezing Cardiac: Negative history of chest pain on exertion, dyspnea on exertion, orthopnea, paroxysmal nocturnal dyspnea, lower extremity edema, presyncope, syncope, or palpitations Gastrointestinal: Negative history of abdominal pain, nausea, vomiting, constipation, diarrhea, melena, or hematochezia Urinary: Negative history of dysuria, hematuria, or frequency Peripheral vascular: No claudication Musculoskeletal: Negative for joint aches/pain, neck pain, or back pain Neurologic: Negative history of dizziness/lightheadedness, vertigo, numbness/tingling of hands or feet Hematologic: Negative for easy bruising or easy bleeding. Endocrine: Negative history of obesity Skin: Negative history of rash and itching Other: The rest of the review of systems is unremarkable and negative or non-contributory I have confirmed and edited as necessary, the PFSH and ROS obtained by others. Physical Examination: BP 127/66 Pulse (!) 54 Ht 177.8 cm (5' 10) Wt 73 kg (161 lb) SpO2 99% BMI 23.10 kg/m BMI 23.10 kg/(m^2) General: Appears well in no acute distress Skin: No clubbing no cyanosis HEENT PERRLA Mucosa: Moist Neck: No JVD no carotid bruit no palpable thyromegaly Heart S1-S2 rate regular rhythm no murmur no rubs or gallops Lungs: Breath sounds equal clear to auscultation bilaterally Extremities no pedal edema Neuro: Oriented to time place and person grossly intact. Psych: Normal mood and affect Cardiac Testing and Procedures: Electrocardiogram: 07/01/2022: Sinus bradycardia 51 bpm. Otherwise normal EKG. 05/14/2021: Sinus bradycardia at 53 bpm. Otherwise normal EKG 11/28/2020: Normal sinus rhythm. Inferior posterior AL. Echocardiogram: 11/25/2020: EF 49%. Grade 1 diastolic dysfunction. Apical lateral segments severely hypokinetic. Anterolateral wall and posterior wall are mildly hypokinetic. No significant valvular abnormalities. Left heart catheterization 11/23/2020: Left main: Large caliber, Minor angiographic abnormalities LAD: Small caliber with severe diffuse disease from the proximal segment to the apical segment. 2 small threadlike diagonal branches with severe diffuse disease Circumflex: Medium to large caliber vessel with tandem 90% stenoses throughout the AV groove portion. OM1 is too small to revascularize.OM2 and posterior lateral branches are of medium caliber and would be potential targets for bypass. RCA: Nonselectively engaged, generally moderate diffuse disease throughout this a dominant vessel. There may be significant ostial disease I have personally reviewed the Electrocardiogram. ASSESSMENT/PLAN: 1. Coronary artery disease involving [place] coronary artery of [place] heart without angina pectoris- ICD9: 414.01, ICD10: I25.10 Patient denies any anginal symptoms and is doing well overall. He says he is walking on a daily basis without any cardiac symptoms. He is to continue aspirin beta-blockers nitrates and high intensitystatins. He stopped Plavix after completing a year of dual antiplatelet therapy. Annual lipid panelbeing monitored by his PCP. Last LDL done in May 2022 at his PCPs office was well below goal. 2. Ischemic cardiomyopathy Patient appears euvolemic. He is to continue beta-blockers and ARB in the current dose. Patient gets his routine BMP monitored by his PCP. Dionicio Simon MD documented in this encounterUniversity Hospitals Conneaut Medical Center01-09-2023 Miscellaneous Notes* Addendum Note - Keith Hernández - 05/11/2022 10:08 AM ESTAddended by: KEITH HERNÁNDEZ on: 05/11/2022 10:08 AM Modules accepted: Orders * Telephone Encounter - Keith Hernández - 05/11/2022 10:07 AM EST Patient requesting refills as follows via phone call: KELLEE: 05/14/21 NOV: 07/01/22 Requested Prescriptions Pending Prescriptions Disp Refills losartan (COZAAR) 25 mg tablet 90 tablet 3 Sig: Take 1 tablet by mouth once daily. Please review and advise. Keith Hernández * Telephone Encounter - Jovita Lugo - 05/11/2022 8:35 AM EST Patient is requesting a refill on his prescription. losartan (COZAAR) 25 mg tablet Sent to the [facility] pharmacy. documented in this encounterUniversity Hospitals [facility]12-08-2022 Miscellaneous Notes* Telephone Encounter - Sarah Campos - 04/09/2022 1:12 PM EST Patient called back. Okay with new appt. * Telephone Encounter - Sarah Campos - 04/09/2022 12:[address] Simon appt on 04/15/22 needed rescheduled due to provider out of office. I have rescheduled patient to the first available appt. If no answer by 3rd attempt to inform patient of schedule change, please cancel upcoming appt so that someone else can utilize the slot. 1st attempt, left voicemail for patient to call back. documented in this encounterUniversity Hospitals Conneaut [facility] Center09-09-2022 Miscellaneous Notes* Telephone Encounter - Sarah Rivera - 01/09/2022 8:10 AM EDT Patient called in requesting a refill on the following medication: clopidogrel (PLAVIX) 75 mg tablet 07/02/21 -- Dionicio Simon MD Take 1 tablet by mouth once daily. He would like for it to be sent to the [facility] in [place]. He states he will be out of this medication by the middle of next week. documented in this encounterUniversity Hospitals Conneaut [facility] Center05-10-2022 Miscellaneous Notes* Addendum Note - Leonie Mckeon Ma - 09/09/2021 11:11 AM EDT Addended by: LEONIE MCKEON MA on: 09/09/2021 11:11 AM Modules accepted: Orders * Telephone Encounter - Michelle Rai - 09/09/2021 10:47 AM EDT Aaron stopped by and and is requesting a refill of his meoprolol RX be sent to [facility] in [place],is this something Dr. Simon can provide? He said he sees Dr. Simon but I see a Dr Rivas is the prescriber on this medication.he has approximately one week of medication remaining Thank you, Michelle Rai documented in this encounterUniversity Hospitals Conneaut [facility] Center04-18-2022 Miscellaneous Notes* Telephone Encounter - Sharon Li - 08/18/2021 9:50 AM EDT Patient calling for refills. Isosorbide 60 mg *has enough for this week Atorvastatin 80mg *has enough for this week Pharmacy Shamika Stock documented in this encounterUniversity Hospitals Conneaut [facility] Center07-27-2021 History of Past illness Narrative* Problem Noted Date Resolved Date Pre-op testing 11/26/2020 11/27/2020 [facility] Surgeon: Franklyn Story M.D. Informed Consent Completed: No STS Score: p CAD: Yes - CAD on Problem List: Yes Is intended procedure a CABG: Yes - is a beta avinash ordered? Yes H & P completed: Yes PA/LAT: Completed CT: Completed MRI: N/A LE US: N/A Cath: Yes - reviewed:uploaded to [employer] EKG: Completed Is patient on Amiodarone? No Echo:Completed EF %: 49 PI's: Pending Carotid: Completed Mapping: Completed Dental: N/A PFT's: N/A Recent Labs 11/26/20 0429 11/24/20 0051 11/23/20 1752 WBC 6.54 < > -- HB 13.0 < > -- HCT 37.2* < > -- PLT 177 < > -- INR -- -- 1.0 CREAT 1.09 < > -- < > = values in this interval not displayed. UA: Normal HCG:N/A ABO/ABO Confirmed: Yes Blood ordered: No con ABO pending Willing to accept blood: Yes SA Swab: Yes - results: Pending Last Dose of Anticoagulation: Heparin Op Note: N/A Pacemaker Check: N/A Implants: no Consults: NA DM: Yes Cardiac Surgical prep: Yes SIGNATURE: Fiorella Estrada APRN.CNP DATE of SERVICE: 11/26/2020 TIME of SERVICE: 10:18 AM CHECKED BY: Primary hypertension 11/26/2020 11/26/2020 Acute coronary syndrome 11/23/2020 11/27/19 21 documented as of this encounter (statuses as of 08/18/2021) [facility]07-27-[facility]21 History of Past illness Narrative* Problem Noted Date Resolved Date Pre-op testing 11/26/2020 11/27/2020 Overview: [facility] PRE-OP CHECKLIST Surgeon: Franklyn Story M.D. Informed Consent Completed: No STS Score: p CAD: Yes - CAD on Problem List: Yes Is intended procedure a CABG: Yes - is a beta avinash ordered? Yes H & P completed: Yes PA/LAT: Completed CT: Completed MRI: N/A LE US: N/A Cath: Yes - reviewed:uploaded to [employer] EKG: Completed Is patient on Amiodarone? No Echo:Completed EF %: 49 PI's: Pending Carotid: Completed Mapping: Completed Dental: N/A PFT's: N/A Recent Labs 11/26/20 0429 11/24/20 0051 11/23/20 1752 WBC 6.54 < > -- HB 13.0 < > -- HCT 37.2* < > -- PLT 177 < > -- INR -- -- 1.0 CREAT 1.09 < > -- < > = values in this interval not displayed. UA: Normal HCG:N/A ABO/ABO Confirmed: Yes Blood ordered: No con ABO pending Willing to accept blood: Yes SA Swab: Yes - results: Pending Last Dose of Anticoagulation: Heparin Op Note: N/A Pacemaker Check: N/A Implants: no Consults: NA DM: Yes Cardiac Surgical prep: Yes SIGNATURE: Fiorella Estrada APRN.CNP DATE of SERVICE: 11/26/2020 TIME of SERVICE: 10:18 AM CHECKED BY: Primary hypertension 11/26/2020 11/26/2020 Acute coronary syndrome 11/23/2020 11/27/19 21 documented as of this encounter (statuses as of 09/09/2021) [facility]07-27-[facility] History of Past illness Narrative* Problem Noted Date Resolved Date Pre-op testing 11/26/2020 11/27/2020 Overview: [facility]ASC[facility] PRE-OP CHECKLIST Surgeon: Franklyn Story M.D. Informed Consent Completed: No STS Score: p CAD: Yes - CAD on Problem List: Yes Is intended procedure a CABG: Yes - is a beta avinash ordered? Yes H & P completed: Yes PA/LAT: Completed CT: Completed MRI: N/A LE US: N/A Cath: Yes - reviewed:uploaded to [employer] EKG: Completed Is patient on Amiodarone? No Echo:Completed EF %: 49 PI's: Pending Carotid: Completed Mapping: Completed Dental: N/A PFT's: N/A Recent Labs 11/26/20 04211/24/20 0051 11/23/20 1752 WBC 6.54 < > -- HB 13.0 < > -- HCT 37.2* < > -- PLT 177 < > -- INR -- -- 1.0 CREAT 1.09 < > -- < > = values in this interval not displayed. UA: Normal HCG:N/A ABO/ABO Confirmed: Yes Blood ordered: No con ABO pending Willing to accept blood: Yes SA Swab: Yes - results: Pending Last Dose of Anticoagulation: Heparin Op Note: N/A Pacemaker Check: N/A Implants: no Consults: NA DM: Yes Cardiac Surgical prep: Yes SIGNATURE: Fiorella Estrada APRN.CNP DATE of SERVICE: 11/26/2020 TIME of SERVICE: 10:18 AM CHECKED BY: Primary hypertension 11/26/2020 11/26/2020 Acute coronary syndrome 11/23/2020 11/27/19 21 documented as of this encounter (statuses as of 01/09/2022) [facility]07-27-[facility] History of Past illness Narrative* Problem Noted Date Resolved Date Pre-op testing 11/26/2020 11/27/2020 Overview: [facility] PRE-OP CHECKLIST Surgeon: Franklyn Story M.D. Informed Consent Completed: No STS Score: p CAD: Yes - CAD on Problem List: Yes Is intended procedure a CABG: Yes - is a beta avinash ordered? Yes H & P completed: Yes PA/LAT: Completed CT: Completed MRI: N/A LE US: N/A Cath: Yes - reviewed:uploaded to [employer] EKG: Completed Is patient on Amiodarone? No Echo:Completed EF %: 49 PI's: Pending Carotid: Completed Mapping: Completed Dental: N/A PFT's: N/A Recent Labs 11/26/2042811/24/205011/23/20 175 WBC 6.54 < > -- HB 13.0 < > -- HCT 37.2* < > -- PLT 177 < > -- INR -- -- 1.0 CREAT 1.09 < > -- < > = values in this interval not displayed. UA: Normal HCG:N/A ABO/ABO Confirmed: Yes Blood ordered: No con ABO pending Willing to accept blood: Yes SA Swab: Yes - results: Pending Last Dose of Anticoagulation: Heparin Op Note: N/A Pacemaker Check: N/A Implants: no Consults: NA DM: Yes Cardiac Surgical prep: Yes SIGNATURE: Fiorella Estrada APRN.CNP DATE of SERVICE: 11/26/2020 TIME of SERVICE: 10:18 AM CHECKED BY: Primary hypertension 11/26/2020 11/26/2020 Acute coronary syndrome 11/23/2020 11/27/19 21 documented as of this encounter (statuses as of 04/09/2022) [facility] History of Past illness Narrative* Problem Noted Date Resolved Date Pre-op testing 11/26/2020 11/27/2020 Overview: [facility] PRE-OP CHECKLIST Surgeon: Franklyn Story M.D. Informed Consent Completed: No STS Score: p CAD: Yes - CAD on Problem List: Yes Is intended procedure a CABG: Yes - is a beta avinash ordered? Yes H & P completed: Yes PA/LAT: Completed CT: Completed MRI: N/A LE US: N/A Cath: Yes - reviewed:uploaded to [employer] EKG: Completed Is patient on Amiodarone? No Echo:Completed EF %: 49 PI's: Pending Carotid: Completed Mapping: Completed Dental: N/A PFT's: N/A Recent Labs 11/26/2042811/24/205011/23/201751 WBC 6.54 < > -- HB 13.0 < > -- HCT 37.2* < > -- PLT 177 < > -- INR -- -- 1.0 CREAT 1.09 < > -- < > = values in this interval not displayed. UA: Normal HCG:N/A ABO/ABO Confirmed: Yes Blood ordered: No con ABO pending Willing to accept blood: Yes SA Swab: Yes - results: Pending Last Dose of Anticoagulation: Heparin Op Note: N/A Pacemaker Check: N/A Implants: no Consults: NA DM: Yes Cardiac Surgical prep: Yes SIGNATURE: Fiorella Estrada APRN.CNP DATE of SERVICE: 11/26/2020 TIME of SERVICE: 10:18 AM CHECKED BY: Primary hypertension 11/26/2020 11/26/2020 Acute coronary syndrome 11/23/2020 11/27/19 21 documented as of this encounter (statuses as of 05/11/2022) [facility] History of Past illness Narrative* Problem Noted Date Resolved Date Pre-op testing 11/26/2020 11/27/2020 Overview: [facility] PRE-OP CHECKLIST Surgeon: Franklyn Story M.D. Informed Consent Completed: No STS Score: p CAD: Yes - CAD on Problem List: Yes Is intended procedure a CABG: Yes - is a beta avinash ordered? Yes H & P completed: Yes PA/LAT: Completed CT: Completed MRI: N/A LE US: N/A Cath: Yes - reviewed:uploaded to [employer] EKG: Completed Is patient on Amiodarone? No Echo:Completed EF %: 49 PI's: Pending Carotid: Completed Mapping: Completed Dental: N/A PFT's: N/A Recent Labs 11/26/20 0429 11/24/20 0051 11/23/20 1752 WBC 6.54 < > -- HB 13.0 < > -- HCT 37.2* < > -- PLT 177 < > -- INR -- -- 1.0 CREAT 1.09 < > -- < > = values in this interval not displayed. UA: Normal HCG:N/A ABO/ABO Confirmed: Yes Blood ordered: No con ABO pending Willing to accept blood: Yes SA Swab: Yes - results: Pending Last Dose of Anticoagulation: Heparin Op Note: N/A Pacemaker Check: N/A Implants: no Consults: NA DM: Yes Cardiac Surgical prep: Yes SIGNATURE: Fiorella Estrada APRN.CNP DATE of SERVICE: 11/26/2020 TIME of SERVICE: 10:18 AM CHECKED BY: Primary hypertension 11/26/2020 11/26/2020 Acute coronary syndrome 11/23/2020 11/27/19 21 documented as of this encounter (statuses as of 07/01/2022) [facility] of Past illness Narrative* Problem Noted Date Resolved Date Pre-op testing 11/26/2020 11/27/2020 Overview: [facility] PRE-OP CHECKLIST Surgeon: Franklyn Story M.D. Informed Consent Completed: No STS Score: p CAD: Yes - CAD on Problem List: Yes Is intended procedure a CABG: Yes - is a beta avinahs ordered? Yes H & P completed: Yes PA/LAT: Completed CT: Completed MRI: N/A LE US: N/A Cath: Yes - reviewed:uploaded to [employer] EKG: Completed Is patient on Amiodarone? No Echo:Completed EF %: 49 PI's: Pending Carotid: Completed Mapping: Completed Dental: N/A PFT's: N/A Recent Labs 11/26/20 0429 11/24/20 0051 11/23/20 1752 WBC 6.54 < > -- HB 13.0 < > -- HCT 37.2* < > -- PLT 177 < > -- INR -- -- 1.0 CREAT 1.09 < > -- < > = values in this interval not displayed. UA: Normal HCG:N/A ABO/ABO Confirmed: Yes Blood ordered: No con ABO pending Willing to accept blood: Yes SA Swab: Yes - results: Pending Last Dose of Anticoagulation: Heparin Op Note: N/A Pacemaker Check: N/A Implants: no Consults: NA DM: Yes Cardiac Surgical prep: Yes SIGNATURE: Fiorella Estrada APRN.CNP DATE of SERVICE: 11/26/2020 TIME of SERVICE: 10:18 AM CHECKED BY: Primary hypertension 11/26/2020 11/26/2020 Acute coronary syndrome 11/23/2020 11/27/19 21 documented as of this encounter (statuses as of 08/10/2022) [facility] History of Past illness Narrative* Problem Noted Date Diagnosed Date Resolved Date Pre-op testing 11/26/2020 11/27/2020 Overview: [facility] PRE-OP CHECKLIST Surgeon: Franklyn Story M.D. Informed Consent Completed: No STS Score: p CAD: Yes - CAD on Problem List: Yes Is intended procedure a CABG: Yes - is a beta avinash ordered? Yes H & P completed: Yes PA/LAT: Completed CT: Completed MRI: N/A LE US: N/A Cath: Yes - reviewed:uploaded to [employer] EKG: Completed Is patient on Amiodarone? No Echo:Completed EF %: 49 PI's: Pending Carotid: Completed Mapping: Completed Dental: N/A PFT's: N/A Recent Labs 11/26/20 0429 11/24/20 0051 11/23/20 1752 WBC 6.54 < > -- HB 13.0 < > -- HCT 37.2* < > -- PLT 177 < > -- INR -- -- 1.0 CREAT 1.09 < > -- < > = values in this interval not displayed. UA: Normal HCG:N/A ABO/ABO Confirmed: Yes Blood ordered: No con ABO pending Willing to accept blood: Yes SA Swab: Yes - results: Pending Last Dose of Anticoagulation: Heparin Op Note: N/A Pacemaker Check: N/A Implants: no Consults: NA DM: Yes Cardiac Surgical prep: Yes SIGNATURE: Fiorella Estrada APRN.CNP DATE of SERVICE: 11/26/2020 TIME of SERVICE: 10:18 AM CHECKED BY: Primary hypertension 11/26/2020 021 Acute coronary syndrome 11/23/202011/01 documented as of this encounter (statuses as of 01/13/2023) [facility] of Past illness Narrative* Problem Noted Date Diagnosed Date Resolved Date Pre-op testing 11/26/2020 11/27/2020 Overview: [facility] PRE-OP CHECKLIST Surgeon: Franklyn Story M.D. Informed Consent Completed: No STS Score: p CAD: Yes - CAD on Problem List: Yes Is intended procedure a CABG: Yes - is a beta avinash ordered? Yes H & P completed: Yes PA/LAT: Completed CT: Completed MRI: N/A LE US: N/A Cath: Yes - reviewed:uploaded to [employer] EKG: Completed Is patient on Amiodarone? No Echo:Completed EF %: 49 PI's: Pending Carotid: Completed Mapping: Completed Dental: N/A PFT's: N/A Recent Labs 11/26/2042811/24/205011/23/20 1752 WBC 6.54 < > -- HB 13.0 < > -- HCT 37.2* < > -- PLT 177 < > -- INR -- -- 1.0 CREAT 1.09 < > -- < > = values in this interval not displayed. UA: Normal HCG:N/A ABO/ABO Confirmed: Yes Blood ordered: No con ABO pending Willing to accept blood: Yes SA Swab: Yes - results: Pending Last Dose of Anticoagulation: Heparin Op Note: N/A Pacemaker Check: N/A Implants: no Consults: NA DM: Yes Cardiac Surgical prep: Yes SIGNATURE: Fiorella Estrada APRN.CNP DATE of SERVICE: 11/26/2020 TIME of SERVICE: 10:18 AM CHECKED BY: Primary hypertension 11/26/2020 021 Acute coronary syndrome 11/23/202011/01 documented as of this encounter (statuses as of 02/10/2023) [facility] of Past illness Narrative* Problem Noted Date Diagnosed Date Resolved Date Pre-op testing 11/26/2020 11/27/2020 Overview: [facility] PRE-OP CHECKLIST Surgeon: Franklyn Story M.D. Informed Consent Completed: No STS Score: p CAD: Yes - CAD on Problem List: Yes Is intended procedure a CABG: Yes - is a beta avinash ordered? Yes H & P completed: Yes PA/LAT: Completed CT: Completed MRI: N/A LE US: N/A Cath: Yes - reviewed:uploaded to [employer] EKG: Completed Is patient on Amiodarone? No Echo:Completed EF %: 49 PI's: Pending Carotid: Completed Mapping: Completed Dental: N/A PFT's: N/A Recent Labs 11/26/2042811/24/205011/23/20 1752 WBC 6.54 < > -- HB 13.0 < > -- HCT 37.2* < > -- PLT 177 < > -- INR -- -- 1.0 CREAT 1.09 < > -- < > = values in this interval not displayed. UA: Normal HCG:N/A ABO/ABO Confirmed: Yes Blood ordered: No con ABO pending Willing to accept blood: Yes SA Swab: Yes - results: Pending Last Dose of Anticoagulation: Heparin Op Note: N/A Pacemaker Check: N/A Implants: no Consults: NA DM: Yes Cardiac Surgical prep: Yes SIGNATURE: Fiorella Estrada APRN.CNP DATE of SERVICE: 11/26/2020 TIME of SERVICE: 10:18 AM CHECKED BY: Primary hypertension 11/26/2020 021 Acute coronary syndrome 11/23/202011/01 documented as of this encounter (statuses as of 02/22/2023) [facility] noteNo assessment information availableWCleveland Clinic Children[facility] Work Phone: [email or web address] note* Diagnosis Coronary artery disease involving [place] coronary artery of [place] heart without angina pectoris- Primary Cardiomyopathy, ischemic Other specified forms of chronic ischemic heart disease documented in this encounter [facility] note* Diagnosis Onset Date Resolution Status Bilateral inguinal hernia wi thout obstruction or gangrene acute Constipation acute Urinary retention acute Bilateral inguinal hernia wi thout obstruction or gangrene acute [facility] Work Phone: [email or web address] note* Diagnosis Coronary artery disease involving [place] coronary artery of [place] heart without angina pectoris- Primary Cardiomyopathy, ischemic Other specified forms of chronic ischemic heart disease documented in this encounter [facility] note* Diagnosis 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, without long-term current use of insulin (HCC) documented in this encounter [facility] note* Diagnosis Pre-operative cardiovascular examination- Primary Coronary artery disease involving [place] coronary artery of [place] heart without angina pectoris Cardiomyopathy, ischemic Other specified forms of chronic ischemic heart disease documented in this encounter [facility] note* Diagnosis Coronary artery disease involving [place] coronary artery of [place] heart without angina pectoris documented in this encounter [facility] note* Diagnosis 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 Your ER workup today was largely normal/reassuring. He did have some findings consistent with some mild dehydration. Make sure you drink plenty of fluids. If you have any chest pain or worsening symptoms such as recurrent lightheadedness, passing out, palpitations or difficulty breathing please [facility] Work Phone: Reason for referral (narrative)* Outpatient Procedure (Routine) - Closed Specialty Diagnoses / Procedures Referred By Contac t Referred To [facility] Diagnoses Coronary artery disease involving [place] coronary artery of [place] heart without angina pectoris Procedures ECG COMPLETE ECG ROUTINE ECG W/LEAST 12 LDS W/I&R Dionicio Simon MD [address] [place] [address] [facility] [address] [place] [address] Referral ID Status Reason Start Date Expiration Date V isits Requested Visits Authorized [id number] Closed Auto-Generate d Referral 07/01/2022 06/26/2023 1 1 [facility] for referral (narrative)No reason for referral information availableWCleveland Clinic Children[facility] Work Phone: Advance Directives Documents on File Type Date Recorded Patient 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 Services Assistant Expl anation Advance Directive(s) 11/24/2020 10:49 AM Advance Directive Response Recorded Date/ Time Living Will Yes November 23, 2020 6:45am Power of Fire And Safety Helper Yes November 23 6:45am Advance Directive Response Recorded Date/ Time Living Will Yes November 23, 2020 5:45am Power of Fire And Safety Helper Yes November 23 5:45am Advance Directive Response Recorded Date/ Time Living Will Yes August 26, 2022 11:11am Power of Fire And Safety Helper Yes August 26 11:11am Advance Directive Response Recorded Date/ Time Name of Medical Power of Fire And Safety Helper DAUGHTER- ALFIE Y August 26, 2022 11:11am Living Will Yes November 23, 2020 6:45am Power of Fire And Safety Helper Yes November 23 6:45am Advance Directive Response Recorded Date/ Time Living Will Yes August 26, 2022 10:11am Power of Fire And Safety Helper Yes August 26 10:11am Advance Directive Response Recorded Date/ Time Do you have a Healthcare Power of Fire And Safety Helper? No January 15, 2025 11:01am Chief Complaint and Reason for Visit Chief Complaint LT SHOULDER STRAIN Chief Complaint LT SHOULDER STRAIN INGUINAL HERNIA Update H&P Reason for Visit Bilateral inguinal h ernia without obstruction or gangrene Constipation Urinary retention Bilateral inguinal hernia without obstruction or gangrene Chief Complaint LT SHOULDER STRAIN INGUINAL HERNIA PREOP Update H&P LAP BILATERAL INGUINAL HERNIA REPAIR LAP BILATERAL INGUINAL HERNIA REPAIR Reason for Visit Bilateral inguinal h ernia without obstruction or gangrene Constipation Urinary retention Bilateral inguinal hernia without obstruction or gangrene Chief Complaint Admit Date syncope January 15, 2025 10:56am Family History No Family History Records Found Relationship Condition Age at Onset Recorded Date/T geo father Diabetes mellitus Unknown mother Cerebrovascular accident (CVA) Unknown Summary Purpose Additional Source Comments Source Comments (unrecognize d section and content) In the event this informatio n is protected by the Federal Confidentiality of Alcohol and Drug Abuse Patient Records regulations: The Federal rules restrict any use of the information to criminally investigate or prosecute any alcohol or drug abuse patient.[facility] CenterIn the event this information is protected by the Federal Confidentiality of Alcohol and Drug Abuse Patient Records regulations: The Federal rules restrict any use of the information to criminally investigate or prosecute any alcohol or drug abuse patient.[facility] CenterIn the event this information is protected by the Federal Confidentiality of Alcohol and Drug Abuse Patient Records regulations: The Federal rules restrict any use of the information to criminally investigate or prosecute any alcohol or drug abuse patient.[facility] CenterIn the event this information is protected by the Federal Confidentiality of Alcohol and Drug Abuse Patient Records regulations: The Federal rules restrict any use of the information to criminally investigate or prosecute any alcohol or drug abuse patient.[facility] CenterIn the event this information is protected by the Federal Confidentiality of Alcohol and Drug Abuse Patient Records regulations: The Federal rules restrict any use of the information to criminally investigate or prosecute any alcohol or drug abuse patient.[facility] CenterIn the event this information is protected by the Federal Confidentiality of Alcohol and Drug Abuse Patient Records regulations: The Federal rules restrict any use of the information to criminally investigate or prosecute any alcohol or drug abuse patient.[facility] CenterIn the event this information is protected by the Federal Confidentiality of Alcohol and Drug Abuse Patient Records regulations: The Federal rules restrict any use of the information to criminally investigate or prosecute any alcohol or drug abuse patient.[facility] CenterIn the event this information is protected by the Federal Confidentiality of Alcohol and Drug Abuse Patient Records regulations: The Federal rules restrict any use of the information to criminally investigate or prosecute any alcohol or drug abuse patient.[facility] CenterIn the event this information is protected by the Federal Confidentiality of Alcohol and Drug Abuse Patient Records regulations: The Federal rules restrict any use of the information to criminally investigate or prosecute any alcohol or drug abuse patient.[facility] CenterIn the event this information is protected by the Federal Confidentiality of Alcohol and Drug Abuse Patient Records regulations: The Federal rules restrict any use of the information to criminally investigate or prosecute any alcohol or drug abuse patient.[facility] CenterIn the event this information is protected by the Federal Confidentiality of Alcohol and Drug Abuse Patient Records regulations: The Federal rules restrict any use of the information to criminally investigate or prosecute any alcohol or drug abuse patient.[facility] CenterIn the event this information is protected by the Federal Confidentiality of Alcohol and Drug Abuse Patient Records regulations: The Federal rules restrict any use of the information to criminally investigate or prosecute any alcohol or drug abuse patient.[facility] CenterIn the event this information is protected by the Federal Confidentiality of Alcohol and Drug Abuse Patient Records regulations: The Federal rules restrict any use of the information to criminally investigate or prosecute any alcohol or drug abuse patient.[facility] CenterIn the event this information is protected by the Federal Confidentiality of Alcohol and Drug Abuse Patient Records regulations: The Federal rules restrict any use of the information to criminally investigate or prosecute any alcohol or drug abuse patient.[facility] CenterIn the event this information is protected by the Federal Confidentiality of Alcohol and Drug Abuse Patient Records regulations: The Federal rules restrict any use of the information to criminally investigate or prosecute any alcohol or drug abuse patient.[facility] CenterIn the event this information is protected by the Federal Confidentiality of Alcohol and Drug Abuse Patient Records regulations: The Federal rules restrict any use of the information to criminally investigate or prosecute any alcohol or drug abuse patient.[facility] CenterIn the event this information is protected by the Federal Confidentiality of Alcohol and Drug Abuse Patient Records regulations: The Federal rules restrict any use of the information to criminally investigate or prosecute any alcohol or drug abuse patient.[facility] CenterIn the event this information is protected by the Federal Confidentiality of Alcohol and Drug Abuse Patient Records regulations: The Federal rules restrict any use of the information to criminally investigate or prosecute any alcohol or drug abuse patient.[facility] CenterIn the event this information is protected by the Federal Confidentiality of Alcohol and Drug Abuse Patient Records regulations: The Federal rules restrict any use of the information to criminally investigate or prosecute any alcohol or drug abuse patient.[facility] Reason for Visit (unrecogniz ed section and content) Reason Comments Refill Request Reason Comments Patient Question Reason Comments Appointment Reason Comments Follow Up Coronary Artery Dise ase Reason Comments Medication Problem Reason Comments Cardiac Clearance Reason Comments Follow Up Coronary Artery Dise ase Reason Comments Cardiology Follow Up Cardiac Clearance R HR on 12/16/23 Care Teams (unrecognized sec tion and content) Outpatient Physical Therapist Relationship Specialty Start Date End Date Sonia Haynes MD [address] [place] [address] PCP - General Family Practice 11/23/20 Erik Miles MD [address] [place] [address] Primary Staff Physician Cardiology 01/30/21 Outpatient Physical Therapist Relationship Specialty Start Date End Date Sonia Haynes MD [address] [facility] [place] [place] [id number] PCP - General Family Practice 11/23/20 Erik Miles MD [address] [place] [address] Primary Staff Physician Cardiology 01/30/21 Outpatient Physical Therapist Relationship Specialty Start Date End Date Sonia Haynes MD [address], [place] [address] PCP - General Family Practice 11/23/20 Erik Miles MD [address] [place], [place] [id number] Primary Staff Physician Cardiology 01/30/21 Outpatient Physical Therapist Relationship Specialty Start Date End Date Sonia Haynes MD [address] [place] [address] PCP - General Family Medicine 11/23/20 Erik Miles MD [address] [place] [address] Primary Staff Physician Cardiology 01/30/21 Outpatient Physical Therapist Relationship Specialty Start Date End Date Sonia Haynes MD [address] [place] [address] PCP - General Family Medicine 11/23/20 Erik Miles MD [address] [place] [address] Primary Staff Physician Cardiology 01/30/21 Team Status: Active Member Role Status Dates Dr. Jose Haynes MD Family Provider Active Dr. Jose Haynes MD Primary Care Provider Activ e Team Status: Active Member Role Status Dates Employee Health Attending Provider Active Team Status: Inactive Member Role Status Dates Dr. Jose Haynes MD Primary Care Provider, Attending Provider, Referring Provider Active Team Status: Inactive Member Role Status Dates Dr. Jose Haynes MD Primary Care Provider Activ e Dr. Fitz Marie MD Attending Provider, Referr ing Provider Active Team Status: Inactive Member Role Status Dates Dr. Jose Haynes MD Primary Care Provider Activ e Dr. Mj Eastman MD Attending Provider Active Team Status: Active Member Role Status Dates Dr. Jose Haynes MD Primary Care Provider, Attending Provider, Referring Provider Active Outpatient Physical Therapist Relationship Specialty Start Date End Date Sonia Haynes MD [address], [place] [id number] PCP - General Family Medicine 11/23/20 Erik Miles MD [address] [place] [address] Primary Staff Physician Cardiology 01/30/21 Outpatient Physical Therapist Relationship Specialty Start Date End Date Sonia Haynes MD [address], [place] [id number] PCP - General Family Medicine 11/23/20 Erik Miles MD [address] [place] [address] Primary Staff Physician Cardiology 01/30/21 Team Status: Inactive Member Role Status Dates Dr. Jose Haynes MD Primary Care Provider, Refe rring Provider Active Dr. Andre Jones MD Attending Provider Active Team Status: Inactive Member Role Status Dates Dr. Jose Haynes MD Primary Care Provider, Refe rring Provider Active Candelaria WERNER PA-C Attending Provider Active Team Status: Inactive Member Role Status Dates Dr. Jose Haynes MD Primary Care Provider, Atte nding Provider Active Team Status: Active Member Role Status Dates Dr. Jose Haynes MD Primary Care Provider Activ e Dr. Connor Armenta MD Attending Provider Active Dr. Andre Jones MD Referring Provider Active Team Status: Active Member Role Status Dates Dr. Jose Haynes MD Primary Care Provider Activ e Dr. Andre Jones MD Attending Provid er, Referring Provider, Other Provider Active Team Status: Inactive Member Role Status Dates Dr. Jose Haynes MD Primary Care Provider Activ e Dr. Andre Jones MD Attending Provider, Referring Provider Active Outpatient Physical Therapist Relationship Specialty Start Date End Date Sonia Haynes MD [address], [place] [id number] PCP - General Family Medicine 11/23/20 Erik Miles MD [address] [place] [place], [place] [id number] Primary Staff Physician Cardiology 01/30/21 Outpatient Physical Therapist Relationship Specialty Start Date End Date Sonia Haynes MD [address], [place] [address] PCP - General Family Medicine 11/23/20 Erik Miles MD [address] [place], [place] [id number] Primary Staff Physician Cardiology 01/30/21 Outpatient Physical Therapist Relationship Specialty Start Date End Date Sonia Haynes MD [address], [place] [address] PCP - General Family Medicine 11/23/20 Erik Miles MD [address] [place], [place] [id number] Primary Staff Physician Cardiology 01/30/21 Outpatient Physical Therapist Relationship Specialty Start Date End Date Sonia Haynes MD [address] [facility] [place], [place] [address] PCP - General Family Medicine 11/23/20 Erik Miles MD [address] [place], [place] [id number] Primary Staff Physician Cardiology 01/30/21 Outpatient Physical Therapist Relationship Specialty Start Date End Date Sonia Haynes MD [address] [place] [address] PCP - General Family Medicine 11/23/20 Erik Miles MD [address] [place], [place] [id number] Primary Staff Physician Cardiology 01/30/21 Outpatient Physical Therapist Relationship Specialty Start Date End Date Sonia Haynes MD [address] [place] [id number] PCP - General Family Medicine 11/23/20 Erik Miles MD [address] [place], [place] [id number] Primary Staff Physician Cardiology 01/30/21 Outpatient Physical Therapist Relationship Specialty Start Date End Date Sonia Haynes MD [address] [place] [id number] PCP - General Family Medicine 11/23/20 Erik Miles MD [address] [place], [place] [id number] Primary Staff Physician Cardiology 01/30/21 Outpatient Physical Therapist Relationship Specialty Start Date End Date Sonia Haynes MD [address] [place] [id number] PCP - General Family Medicine 11/23/20 Erik Miles MD [address] [place] [address] Primary Staff Physician Cardiology 01/30/21 Team Status: Active Member Role/Relationship Status Dates Dr. Sonia Haynes MD Family Provider Active Dr. Sonia Haynes MD Primary Care Provider Acti ve Team Status: Inactive Member Role/Relationship Status Dates Dr. Sonia Haynes MD Primary Care Provider Acti ve Start: October 31, 2024 End: October 31, 2024 Dr. Sonia Haynes MD Attending Provider Active Start: October 31, 2024 End: October 31, 2024 Dr. Sonia Haynes MD Referring Provider Active Start: October 31, 2024 End: October 31, 2024 Team Status: Active Member Role/Relationship Status Dates Dr. Sonia Hyanes MD Primary Care Provider Acti ve Team Status: Inactive Member Role/Relationship Status Dates Dr. Sonia Haynes MD Primary Care Provider Acti ve Start: January 15, 2025 End: January 15, 2025 Dr. Gina Perera DO Emergency Provider Active Start: January 15, 2025 End: January 15, 2025 Goals (unrecognized section and content) Goals may be documented in a n alternate sectionGoals may be documented in an alternate sectionGoals may be documented in an alternate sectionGoals may be documented in an alternate sectionGoals may be documented in an alternate sectionGoals may be documented in an alternate sectionGoals may be documented in an alternate sectionGoals may be documented in an alternate sectionGoals may be documented in an alternate sectionGoals may be documented in an alternate section (unrecognized sect ion and content) No Status Records FoundNo Status Records FoundNo Status Records FoundNo Status Records Found INFORMATION SOURCE (unrecogn ized section and content) DATE CREATED AUTHOR 01/14/2023 [facility] DATE CREATED AUTHOR AUTHOR'S ORGANIZ ATION 11/04/2023 [facility] DATE CREATED AUTHOR AUTHOR'S ORGANIZ ATION 11/09/2024 [facility] DATE CREATED AUTHOR AUTHOR'S ORGANIZ ATION 11/13/2024 [facility] FOR RECORDS PERTAINING TO PATIENTS WHO ARE OR HAVE BEEN ENROLLED IN A CHEMICAL DEPENDENCY/SUBSTANCEABUSE PROGRAM, SOME INFORMATION MAY BE OMITTED. This clinical summary was aggregated from multiple sources. Caution should be exercised in using it in the provision of clinical care. This summary normalizes information from multiple sources, and as a consequence, information in this document may materially change the coding, format and clinical context of patient data. In addition, data may be omitted in some cases. CLINICAL DECISIONS SHOULD BE BASED ON THE PRIMARY CLINICAL RECORDS. [facility]. provides no warranty or guarantee of the accuracy or completeness of information in this document.
== END 2025-01-15 15:14 | disposition home or self-care (01) ==
PROVIDERS: Emergency Provider Emergency Medicine; PCP Family Medicine; Visit Provider Emergency Medicine
DX: R55 Syncope and collapse (principal); E11.9 Type 2 diabetes mellitus without complications; I25.10 Atherosclerotic heart disease of native coronary artery without angina pectoris; S46.811A Strain of other muscles, fascia and tendons at shoulder and upper arm level, right arm, initial encounter; X58.XXXA Exposure to other specified factors, initial encounter; I25.2 Old myocardial infarction; E78.5 Hyperlipidemia, unspecified; M10.9 Gout, unspecified; Z79.82 Long term (current) use of aspirin; Z79.84 Long term (current) use of oral hypoglycemic drugs; Z79.899 Other long term (current) drug therapy
CPT/HCPCS: 71045; 71275; 80048; 81001; 84484; 85025; 85379; 93005; 96360; 99285; Q9967; A4216

== ENCOUNTER → 2025-03-15 | Outpatient (CLI) | payer MEDICARE, BC, SELFPAY ==
[2025-03-15 09:08] LABS: PSA,Total - Annual Screen 0.36 ng/mL (0.02-4.00)
== END | disposition home or self-care (01) ==
LOC: LAB 08:03
PROVIDERS: PCP Family Medicine; Referring Provider Urology; Visit Provider Urology
DX: Z12.5 Encounter for screening for malignant neoplasm of prostate (principal)
CPT/HCPCS: 36415; 84153; G0103